=== PATIENT | female | born 1985 | race Caucasian/White ===

== ENCOUNTER 2016-09-25 00:05 | Outpatient (CLI) | payer BC, MEDICAID ==
[2016-09-25 00:40] LABS: APPEARANCE,URINE CLEAR; BILIRUBIN,URINE NEGATIVE (NEGATIVE); GLUCOSE, URINE NEGATIVE (NEGATIVE); KETONES,URINE NEGATIVE (NEGATIVE); LEUKOCYTE ESTERASE,URINE NEGATIVE (NEGATIVE); NITRITE,URINE NEGATIVE (NEGATIVE); PROTEIN,URINE NEGATIVE (NEGATIVE); URINE SPECIFIC GRAVITY 1.009; UROBILINOGEN,URINE NEGATIVE mg/dL (<2.0)
[2016-09-25] MEDS ORDERED: ONDANSETRON 4 MG TAB.RAPDIS PO ONE (01:16)
[2016-09-25 01:17] LABS: URINE BARBITURATES SCREEN NEGATIVE; URINE METHADONE SCREEN NEGATIVE; URINE PHENCYCLIDINE SCREEN NEGATIVE
[2016-09-25] MEDS ORDERED: ONDANSETRON 4 MG TAB.RAPDIS ONE (01:19)
--- NOTE | 2016-09-25 04:47 | L&D Current Admission ---
Current Admit Datetime Report Generated by CPN: 09/25/2016 04:45 ADMISSION INFORMATION Chief Complaint: Nausea (Annotations: States took bp at home and was 161/103. Hx of pre-eclampsia with other two pregnancies) (09/25/2016 00:38:Randa Álvarez RN)
--- NOTE | 2016-09-25 04:47 | L&D Flow Sheet ---
LD Flowsheet Datetime Report Generated by CPN: 09/25/2016 04:45 Datetime: 09/25/2016 01:33 Communication Additional Nursing Comments: Pt d/c'd to home with care notes given on kick counts and pre-eclampsia. To return to office later today as previously scheduled. (Randa Henri, RN) Datetime: 09/25/2016 01:25 Medications Antiemetics/Antacids: Zofran PO (mg) @ 4 mg (Randa Henri, RN) Datetime: 09/25/2016 01:18 Vital Signs NBP Sys/Evonne/Mean (mmHg): 125 (QS system process) : 80 (QS system process) : 97 (QS system process) Pulse: 85 (QS system process) LaborFlag: OB Triage (QS system process) Datetime: 09/25/2016 01:12 Communication Comments: Dr. Figueroa notified of pt's presence and c/o. Orders received. (Randa Henri, RN) Datetime: 09/25/2016 01:03 Vital Signs NBP Sys/Evonne/Mean (mmHg): 119 (QS system process) : 72 (QS system process) : 90 (QS system process) Pulse: 98 (QS system process) LaborFlag: OB Triage (QS system process) Datetime: 09/25/2016 01:00 Uterine Activity Frequency (min): 0 (Randa Henri, RN) Resting Tone (Palpate): Relaxed (Randa Henri, RN) Assessment A Monitor Mode: External US (Randa Henri, RN) FHR Baseline Rate : 133 (Randa Henri, RN) FHR Baseline Changes: No Baseline Change (Randa Henri, RN) Variability: Moderate 6-25 bpm (Randa Henri, RN) Accelerations: 15X15 (Randa Henri, RN) Decelerations: None (Randa Henri, RN) Datetime: 09/25/2016 00:48 Vital Signs NBP Sys/Evonne/Mean (mmHg): 135 (QS system process) : 88 (QS system process) : 105 (QS system process) Pulse: 93 (QS system process) LaborFlag: OB Triage (QS system process) Datetime: 09/25/2016 00:38 Pain Pain Scale: 2 (Randa Henri, RN) Pain Presence: Intermittent (Randa Henri, RN) Pain Type: Cramping (Randa Henri, RN) Pain Location: lower abdomen where leg meets the abdomen (Randa Henri, RN) Pain Goal: 1 (Randa Henri, RN) Vaginal Exam Membrane Status: Intact (Randa Henri, RN) Vaginal Bleeding: None (Randa Henri, RN) Maternal Assessment Level of Consciousness: Fully Conscious (Randa Álvarez RN) DTR's/Clonus: DTRs 1+ (Randa Álvarez RN) Headache: None at present but states has had several over past week (Randa Álvarez RN) Breath Sounds, Left: Clear and Equal (Randa Álvarez RN) Breath Sounds, Right: Clear and Equal (Randa Álvarez RN) Nausea/Vomiting: Present (Annotations: states has been nauseated all afternoon and evening. Has taken Diclegesis but has not really helped.) (Randa Álvarez RN) RUQ Epigastric Pain: Denies (Annotations: states has had it earlier today and off and on all week) (Randa Álvarez RN) LaborFlag: OB Triage (QS system process) Datetime: 09/25/2016 00:33 Vital Signs NBP Sys/Evonne/Mean (mmHg): 125 (QS system process) : 76 (QS system process) : 96 (QS system process) Pulse: 101 (QS system process) LaborFlag: OB Triage (QS system process)
--- NOTE | 2016-09-25 04:47 | Antepartum Discharge Summary ---
Antepartum DC Datetime Report Generated by CPN: 09/25/2016 04:45 DIET/ACTIVITY/RESTRICTIONS Diet: Regular (09/25/2016 01:39:Randa Henri, RN) Activity: Normal Activity (09/25/2016 01:39:Randa Henri, RN) TEACHING/INSTRUCTIONS/REFERRALS Instructions Given To: Stacy Arambula (09/25/2016 01:39:Randa Henri, RN) Instructions Understood: Patient Verbalized Understanding (09/25/2016 01:39:Randa Álvarez RN) Referrals: None (09/25/2016 01:39:Randa Álvarez RN) Educational Materials- Other: Care notes given on kick counts and pre-eclampsia (09/25/2016 01:39:Randa Álvarez RN) DISCHARGE INFORMATION Discharged AMA: No (09/25/2016 01:39:Randa Álvarez RN) Discharge Date/Time: 09/25/2016 01:33 (09/25/2016 01:39:Randa Álvarez RN) Discharged To: Home (09/25/2016 01:39:Randa Álvarez RN) Discharge Provider Name: Dr. Figueroa (09/25/2016 01:39:Randa Álvarez RN) Accompanied By: self (09/25/2016 01:39:Randa Álvarez RN) Discharge Method: Ambulatory (09/25/2016 01:39:Randa Álvarez RN) Condition: Stable (09/25/2016 01:39:Randa Álvarez RN) FOLLOW UP INFORMATION Follow Up With: [facility] (09/25/2016 01:39:Randa Álvarez RN) Follow Up On: As Scheduled (09/25/2016 01:39:Randa Álvarez RN) Follow Up Phone Number: [facility] - (09/25/2016 01:39:Randa Álvarez RN)
--- NOTE | 2016-09-25 04:47 | L&D Discharge Summary ---
OB Discharge Summary Datetime Report Generated by CPN: 09/25/2016 04:45 DISCHARGE DIAGNOSIS Diagnosis/Symptoms: Hypertension Evaluation Diagnoses/Symptoms Other: false labor;bp's wnl Treatment/Procedures Other: BP eval Gestation: 32.6 Number of Babies in Womb: 1 Parity: 2 DIET/ACTIVITY/RESTRICTIONS Diet: Regular Activity: Normal Activity TEACHING/INSTRUCTIONS/REFERRALS Instructions Given To: Stacy Arambula Instructions Understood: Patient Verbalized Understanding Referrals: None Educational Materials- Other: Care notes given on kick counts and pre-eclampsia DISCHARGE INFORMATION Discharged AMA: No Discharge Date/Time: 09/25/2016 01:33 Discharged To: Home Discharge Provider Name: Dr. Figueroa Accompanied By: self Discharge Method: Ambulatory Condition: Stable FOLLOW UP INFORMATION Follow Up With: [facility] Follow Up On: As Scheduled Follow Up Phone Number: [facility] - Comments: Pt discharged to home for bedrest over the weekend and to schedule appointment for Thursday or Thursday with [facility] for reevaluation. Pt agrees with plan of care, ambulates without difficulty, no distress noted. No complaints. GENERAL INSTR-CALL PROVIDER IF: Pressure: Pressure in your vagina or lower abdomen that may feel like the baby is pushing down Period Like Cramps: Period-like cramps or low dull backache that may come and go Cramps/Diarrhea: Abdominal cramps that may be accompanied by diarrhea Gush of Fluid/Blood: Gush of fluid or blood from your vagina (it is normal to have spotting after vaginal exam or intercourse) Vaginal Discharge: Change in the type or amount of vaginal discharge Decreased Movement: Your baby is not moving as much as usual- 4 movements in 1 hour after drinking and resting on side Temperature: Temperature greater than 100.0(F) orally
--- NOTE | 2016-09-25 04:47 | L&D Admission Assessment ---
LD ADM ASMT Datetime Report Generated by CPN: 09/25/2016 04:45 PATIENT ASSESSMENT Assessment Type: Triage (09/25/2016 00:38:Randa Álvarez RN) PAIN Pain Scale: 2 (09/25/2016 00:38:Randa Álvarez RN) Pain Presence: Intermittent (09/25/2016 00:38:Randa Álvarez RN) Pain Type: Cramping (09/25/2016 00:38:Randa Álvarez RN) Pain Location: lower abdomen where leg meets the abdomen (09/25/2016 00:38:Randa Henri, RN) Pain Goal: 1 (09/25/2016 00:38:Randa Álvarez, RN) Pain Related to Contraction: No (09/25/2016 00:38:Randa Henri, RN) CONTRACTIONS Frequency (min): 0 (09/25/2016 01:00:Randa Henri, RN) Resting Tone [place]: Relaxed (09/25/2016 01:00:Randa Henri, RN) VAGINAL EXAM Membranes Status: Intact (09/25/2016 00:38:Randa Henri, RN) NEURO Level of Consciousness: Fully Conscious (09/25/2016 00:38:Randa Álvarez RN) DTR's/Clonus: DTRs 1+ (09/25/2016 00:38:Randa Álvarez RN) Headache: None at present but states has had several over past week (09/25/2016 00:38:Randa Álvarez RN) Dizziness: No (Annotations: Does not describe it as dizzy but "lightheaded") (09/25/2016 00:38:Randa Álvarez RN) Blurred Vision: No (09/25/2016 00:38:Randa Álvarez RN) Extremity Numbness/Tingling : None (09/25/2016 00:38:Randa Álvarez RN) Extremity Movement: Full Range of Motion (09/25/2016 00:38:Randa Álvarez RN) CARDIOVASCULAR Heart Rhythm: Regular (09/25/2016 00:38:Randa Álvarez RN) Nailbeds: [place] (09/25/2016 00:38:Randa Álvarez RN) Capillary Refill: Less than 3 Seconds (09/25/2016 00:38:Randa Álvarez RN) Lower Extremities Edema: None (09/25/2016 00:38:Randa Álvarez RN) Lower Extremities Edema Degree: None (09/25/2016 00:38:Randa Álvarez RN) Upper Extremities Edema: None (09/25/2016 00:38:Randa Álvarez RN) Upper Extremities Edema Degree: None (09/25/2016 00:38:Randa Álvarez RN) Facial Edema: None (09/25/2016 00:38:Randa Álvarez RN) Neeraj's Sign Left Leg: Negative (09/25/2016 00:38:Randa Álvarez RN) Neeraj's Sign Right Leg: Negative (09/25/2016 00:38:Randa Álvarez RN) DVT RISK ASSESSMENT DVT Risk Age: Age less than 41 years (09/25/2016 00:38:Randa Álvarez RN) DVT Risk BMI: BMI<31 (09/25/2016 00:38:Randa Álvarez RN) DVT Risk Surgery: None Applicable (09/25/2016 00:38:Randa Álvarez RN) DVT Risk Other: Women Only- or (<1 month) (09/25/2016 00:38:Randa Álvarez RN) DVT Risk Total: 1 (09/25/2016 00:38:QS system process) DVT Risk Text: Low Risk (<10%) No specific measures, early ambulation (09/25/2016 00:38:QS system process) RESPIRATORY Respiratory Effort: Unlabored; Regular Rhythm (09/25/2016 00:38:Randa Álvarez RN) Breath Sounds, Left: Clear and Equal (09/25/2016 00:38:Randa Álvarez RN) Breath Sounds, Right: Clear and Equal (09/25/2016 00:38:Randa Álvarez RN) Cough Productivity: None (09/25/2016 00:38:Randa Álvarez RN) GASTROINTESTINAL Nausea/Vomiting: Present (Annotations: states has been nauseated all afternoon and evening. Has taken Diclegesis but has not really helped.) (09/25/2016 00:38:Randa Álvarez RN) Bowel Sounds: Normoactive (09/25/2016 00:38:Randa Álvarez RN) RUQ Epigastric Pain: Denies (Annotations: states has had it earlier today and off and on all week) (09/25/2016 00:38:Randa Álvarez RN) Bowel Patterns: Constipation (09/25/2016 00:38:Randa Álvarez RN) Hemorrhoids: Present (09/25/2016 00:38:Randa Álvarez RN) Diet Type: Regular diet (09/25/2016 00:38:Randa Álvarez RN) Last Meal: 09/24/2016 17:00 (09/25/2016 00:38:Randa Álvarez RN) GENITOURINARY Bladder: Nondistended (09/25/2016 00:38:Randa Álvarez RN) Vaginal Bleeding: None (09/25/2016 00:38:Randa Álvarez RN) INTEGUMENTARY Skin Color: Normal for Race (09/25/2016 00:38:Randa Álvarez RN) Skin Temperature: Warm (09/25/2016 00:38:Randa Álvarez RN) Skin Moisture: Dry (09/25/2016 00:38:Randa Álvarez RN) Surgical Scars: lap scars (09/25/2016 00:38:Randa Álvarez RN) Body Piercings/Tattoos: ears, nose and R eyebrow; tattos X7 (09/25/2016 00:38:Randa Álvarez RN) [facility] SKIN ASSESSMENT Oscar Scale Sensory Perception: No Impairment- Responds to verbal commands. Has no sensory deficit which would limit ability to feel or voice pain or discomfort (09/25/2016 00:38:Randa Álvarez RN) Oscar Scale Moisture: Rarely Moist- Skin is usually dry. Linen only requires changing at routine intervals (09/25/2016 00:38:Randa Álvarez RN) Oscar Scale Activity: Walks Frequently- Walks outside the room at least twice a day and inside room at least every 2 hours during the day. (09/25/2016 00:38:Randa Álvarez RN) Oscar Scale Mobility: No Limitations- Makes major and frequent changes in position without assistance (09/25/2016 00:38:Randa Álvarez RN) Oscar Scale Nutrition: Excellent- Eats most of every meal. Never refuses a meal. Usually eats a total of 4 or more servings of meat and dairy products. Occasionally eats between meals. Does not require supplementation (09/25/2016 00:38:Randa Álvarez RN) Oscar Scale Friction and Shear: No Apparent Problem- Moves in bed and in chair independently and has sufficient muscle strength to lift up completely during move. Maintains good position in bed or chair at all times (09/25/2016 00:38:Randa Álvarez RN) Oscar Scale Total: 23 (09/25/2016 00:38:QS system process) Oscar Scale Risk: No Risk of Pressure Ulcer Noted at this Time (09/25/2016 00:38:QS system process) SUPPORT Emotional State: Calm/Relaxed (09/25/2016 00:38:Randa Álvarez RN) SAFETY Call [place] Within Reach: Yes (09/25/2016 00:38:Randa Álvarez RN) Side Rails Up: Yes (09/25/2016 00:38:Randa Álvarez RN) Bed Wheels Locked: Yes (09/25/2016 00:38:Randa Álavrez RN) Arm Bands Present: Yes (09/25/2016 00:38:Randa Álvarez RN) Isolation: [place] (09/25/2016 00:38:Randa Álvarez RN) FALL SCREEN Fall Risk History of Falling: (0) No (09/25/2016 00:38:Randa Álvarez RN) Fall Risk Secondary Diagnosis: (0) No (09/25/2016 00:38:Randa Álvarez RN) Fall Risk Ambulatory Aid: (0) None/Bedrest/Wheelchair/Nurse Assist (09/25/2016 00:38:Randa Álvarez RN) Fall Risk IV Therapy: (0) No (09/25/2016 00:38:Randa Álvarez RN) Fall Risk Gait: (0) Normal/Bedrest/Immobile (09/25/2016 00:38:Randa Álvarez RN) Fall Risk Mental Status: (0) Oriented to Own Ability (09/25/2016 00:38:Randa Álvarez RN) Fall Risk Score: 0 (09/25/2016 00:38:QS system process) Fall Risk Score Definition: No Risk: No action required (09/25/2016 00:38:QS system process) RECENT TRAVEL/INFECTIOUS DISEASE Recent Exp Communicable Disease: No (09/25/2016 00:38:Randa Álvarez RN) Cough or Fever: No (09/25/2016 00:38:Randa Álvarez RN) Foreign Travel Past 10 Days: No (09/25/2016 00:38:Randa Álvarez RN) Open Wounds or Sores: No (09/25/2016 00:38:Randa Álvarez RN) Prior Antibiotic Resistance Tx: No (09/25/2016 00:38:Randa Álvarez RN) Cultures Obtained: Not Applicable (09/25/2016 00:38:Randa Álvarez RN) Isolation Initiated: No (09/25/2016 00:38:Randa Álvarez RN) Pt/Family Education: Not Applicable (09/25/2016 00:38:Randa Álvarez RN) BABY A FHR Baseline Rate (bpm) Baby A: 133 (09/25/2016 01:00:Randa Álvarez RN) Variability Baby A: Moderate 6-25 bpm (09/25/2016 01:00:Randa Álvarez RN) Accelerations Baby A: 15X15 (09/25/2016 01:00:Randa Álvarez RN) Decelerations Baby A: None (09/25/2016 01:00:Randa Álvarez RN)
--- NOTE | 2016-09-25 04:47 | L&D General Admission ---
General Admit Datetime Report Generated by CPN: 09/25/2016 04:45 INFORMATION Para: 2 (09/25/2016 01:39:Randa Henri, RN) Baby, Number in Womb: 1 (09/25/2016 01:39:Randa Henri, RN) CARE Height (in): 67 (09/25/2016 01:16:QS system process) Height (in): 67 (09/04/2016 11:50:QS system process) ALLERGIES Medication Allergies: No Known Allergies (09/25/2016) (09/25/2016 00:21:QS system process) Medication Allergies: No Known Allergies (09/04/2016) (09/04/2016 11:50:QS system process) DEMOGRAPHICS Address: [address] [place] [id number] (09/04/2016 11:39:QS system process) Next of Kin Name: BEVERLY ANAYA (09/04/2016 11:39:QS system process) Next of Kin (09/04/2016 11:39:QS system process) Confucianism: None (09/04/2016 11:39:QS system process) LABS Hemoglobin: 10.6 L (09/04/2016 13:07:QS system process) Hemoglobin: 11.6 L (08/02/2016 21:50:QS system process) Hematocrit: 30.8 L (09/04/2016 13:07:QS system process) Hematocrit: 34.3 L (08/02/2016 21:50:QS system process) MCV: 87 (09/04/2016 13:07:QS system process) MCV: 89 (08/02/2016 21:50:QS system process)
== END 2016-09-25 01:33 | disposition home or self-care (01) ==
LOC: LC 00:05
PROVIDERS: ATTEND Obstetrics & Gynecology
PROC: 4A1HXCZ Monitoring of Products of Conception, Cardiac Rate, External Approach (ICD-10-PCS; principal; 2016-09-25)
DX: O47.03 False labor before 37 completed weeks of gestation, third trimester (principal); Z3A.32 32 weeks gestation of pregnancy
CPT/HCPCS: 59025; 81001; G0479; S0119; 80307

== ENCOUNTER 2016-10-21 13:25 | Outpatient (CLI) | payer BC, MEDICAID ==
--- NOTE | 2016-10-21 13:30 | Non Stress Test Report ---
Non Stress Test Datetime Report Generated by CPN: 10/21/2016 13:30 DEMOGRAPHIC Test Number: 1 EGA NST: 33.0 INDICATION Indication for Study: Ordered by Provider VITAL SIGNS Temperature - NST: 98.5 Pulse - NST: 101 RESP - NST: 20 NBPSYS NST: 125 NBPDIA NST: 76 URINE RESULTS Urine Protein, NST: Negative Urine Ketones - NST: Negative Urine Glucose - NST: Negative Urine Blood - NST: Negative MONITORING Monitor Explained: Monitor Explained; Test Explained; Patient Verbalized Understanding; Other Time on Monitor: 09/25/2016 00:29 Time off Monitor: 09/25/2016 01:25 NST Duration: 56 NST INTERVENTIONS NST Interventions: PO Hydration Physician Notified NST: Dr. Figueroa BABY A: [id number] BABY A Movement : Present Contraction Frequency : 0 FHR Baseline : 130 Accelerations : 15X15 Decelerations : None Variability : Moderate 6-25bpm NST Review: Meets Criteria for Reactive NST NST Review and Verified By : Noe Cabrales, RN NST Results: Reactive NST REPORT Report Trigger: Send Report
[2016-10-21 14:01] LABS: APPEARANCE,URINE CLEAR; BILIRUBIN,URINE NEGATIVE (NEGATIVE); GLUCOSE, URINE NEGATIVE (NEGATIVE); KETONES,URINE NEGATIVE (NEGATIVE); LEUKOCYTE ESTERASE,URINE TRACE (NEGATIVE); NITRITE,URINE NEGATIVE (NEGATIVE); PROTEIN,URINE NEGATIVE (NEGATIVE); URINE SPECIFIC GRAVITY 1.009; UROBILINOGEN,URINE NEGATIVE mg/dL (<2.0)
--- NOTE | 2016-10-21 14:01 | L&D Flow Sheet ---
LD Flowsheet Datetime Report Generated by CPN: 10/21/2016 14:00 Datetime: 10/21/2016 13:53 Vaginal Exam Vaginal Bleeding: None (Yanci Hall, RN) Maternal Assessment Level of Consciousness: Fully Conscious (Yanci Hall, RN) DTR's/Clonus: DTRs 2+; No Clonus (Yanci Hall, RN) Headache: Denies (Yanci Hall, RN) Breath Sounds, Left: Clear and Equal (Yanci Hall, RN) Breath Sounds, Right: Clear and Equal (Yanci Hall, RN) Nausea/Vomiting: Hx of Nausea/Vomiting (Yanci Hall, RN) RUQ Epigastric Pain: Denies (Yanci Hall, RN) Teaching Instructional Method: Verbal; Patient Instructed; Verbalized Understanding (Yanci Hall RN) Plan of Care: Plan of Care Discussed (Yanci Hall RN) Unit Routine: [place] to Room; Call [place]; Bed; Handwashing; Monitoring; Bathroom Privileges (Yanci Hall RN) Datetime: 10/21/2016 13:52 Patient Care Procedures: Labs Drawn (Yanci Hall, RN) Datetime: 10/21/2016 13:49 Vital Signs NBP Sys/Evonne/Mean (mmHg): 125 (QS system process) : 83 (QS system process) : 98 (QS system process) Pulse: 97 (QS system process) Respirations: 16 (Yanci Hall RN) Temperature (F): 98.2 (Yanci Hall RN) Temperature (C): 36.8 (QS system process) Uterine Activity Monitor Interventions for UA: [place] Adjusted (Yanci Hall, RN) Pain Pain Scale: 2 (Yanci Hall, RN) Pain Presence: Intermittent (Yanci Hall, RN) Pain Type: Contraction (Yanci Hall, RN) Pain Location: Back (Yanci Hall, RN) Pain Relief Measures: Comfort Measures (Yanci Hall, RN) Communication LaborFlag: OB Triage (QS system process) Datetime: 10/21/2016 13:41 Patient Position/Activity: Left Lateral (Yanci Hall RN) I/O Interventions: Clear Liquids Given (Yanci Hall RN)
[2016-10-21 14:24] LABS: URINE METHADONE SCREEN NEGATIVE; URINE OPIATES LOW NEGATIVE; URINE PHENCYCLIDINE SCREEN NEGATIVE
[2016-10-21 14:39] LABS: ABSOLUTE EOSINOPHILS # (AUTO) 0.3 10^3/uL (0.0-0.6); ABSOLUTE LYMPHOCYTES (AUTO) 1.2 10^3/uL (0.5-4.7); ABSOLUTE MONOCYTES (AUTO) 0.4 10^3/uL (0.1-1.4); BASOPHILS % (AUTO) 0.4 % (0-2); EOSINOPHILS % (AUTO) 3.2 % (0-6); HEMOGLOBIN 10.1 g/dL (12.0-15.5); HGB HCT DIFFERENCE 0.3; LYMPHOCYTES % (AUTO) 15.2 % (13-45); MEAN CORPUSCULAR HEMOGLOBIN 28.2 pg (27.0-33.4); MEAN CORPUSCULAR HGB CONC 33.7 g/dL (32.0-36.0); MEAN CORPUSCULAR VOLUME 84 fl (80-97); MONOCYTES % (AUTO) 4.7 % (3-13); RED BLOOD COUNT 3.58 10^6/uL (3.72-5.28); RED CELL DISTRIBUTION WIDTH 14.2 % (11.5-14.0); SEGMENTED NEUTROPHILS % (AUTO) 76.5 % (42-78); WHITE BLOOD COUNT 7.8 10^3/uL (4.0-10.5)
[2016-10-21 14:43] LABS: URINE BARBITURATES SCREEN NEGATIVE
[2016-10-21 14:59] LABS: ALANINE AMINOTRANSFERASE 61 U/L (9-52); ALBUMIN 3.2 g/dL (3.5-5.0); ALKALINE PHOSPHATASE 139 U/L (38-126); ANION GAP 9 (5-19); ASPARTATE AMINO TRANSFERASE 34 U/L (14-36); BILIRUBIN,TOTAL 0.7 mg/dL (0.2-1.3); BLOOD UREA NITROGEN 7 mg/dL (7-20); CALCIUM 8.6 mg/dL (8.4-10.2); CARBON DIOXIDE 25 mmol/L (22-30); CHLORIDE 106 mmol/L (98-107); CREATININE RESULT 0.63 mg/dL (0.52-1.25); GLUCOSE 81 mg/dL (75-110); LDH 499 U/L (313-618); SODIUM 139.5 mmol/L (137-145); TOTAL PROTEIN 6.2 g/dL (6.3-8.2); URIC ACID 3.7 mg/dL (2.5-6.2)
--- NOTE | 2016-10-21 15:13 | Non Stress Test Report ---
Non Stress Test Datetime Report Generated by CPN: 10/21/2016 15:13 DEMOGRAPHIC EGA NST: 36.5 INDICATION Indication for Study: Other Indication for Study (NST) Other: LC MONITORING Monitor Explained: Monitor Explained; Test Explained; Patient Verbalized Understanding Time on Monitor: 10/21/2016 13:48 Time off Monitor: 10/21/2016 15:03 NST Duration: 75 NST INTERVENTIONS NST Interventions: PO Hydration; Reposition Patient Physician Notified NST: A. Emmel CNM BABY A Movement : Present Contraction Frequency : irreg FHR Baseline : 135 Accelerations : 15X15 Decelerations : None Variability : Moderate 6-25bpm NST Review: Meets Criteria for Reactive NST NST Review and Verified By : Jessy José RN NST Results: Reactive NST REPORT Report Trigger: Send Report
== END 2016-10-21 15:10 | disposition home or self-care (01) ==
LOC: LC 13:25
PROVIDERS: ATTEND Obstetrics & Gynecology
PROC: 4A1HXCZ Monitoring of Products of Conception, Cardiac Rate, External Approach (ICD-10-PCS; principal; 2016-10-21)
DX: Z36 Encounter for antenatal screening of mother (principal); Z13.6 Encounter for screening for cardiovascular disorders; Z3A.33 33 weeks gestation of pregnancy
CPT/HCPCS: 36415; 59025; 80053; 80307; 81001; 83615; 84550; 85025

== ENCOUNTER 2016-11-05 06:46 | Inpatient (IN) | payer BC, MEDICAID ==
[2016-11-05] MEDS ORDERED: RINGERS SOLUTION,LACTATED 1,000 ML IV PRN (07:08)
[2016-11-05] MEDS ORDERED: OXYTOCIN/NORMAL SALINE 1,000 ML IV PRN ×2 (07:08→17:45)
[2016-11-05] MEDS ORDERED: RINGERS SOLUTION,LACTATED 300 ML IV ONE (07:08)
[2016-11-05 07:44] LABS: ABSOLUTE LYMPHOCYTES (AUTO) 1.6 10^3/uL (0.5-4.7); ABSOLUTE MONOCYTES (AUTO) 0.3 10^3/uL (0.1-1.4); ABSOLUTE NEUT (AUTO) 4.2 10^3/uL (1.7-8.2); BASOPHILS % (AUTO) 0.4 % (0-2); EOSINOPHILS % (AUTO) 0.3 % (0-6); HEMATOCRIT 29.4 % (36.0-47.0); HEMOGLOBIN 9.8 g/dL (12.0-15.5); MEAN CORPUSCULAR HEMOGLOBIN 27.5 pg (27.0-33.4); MEAN CORPUSCULAR HGB CONC 33.5 g/dL (32.0-36.0); MEAN CORPUSCULAR VOLUME 82 fl (80-97); MONOCYTES % (AUTO) 4.4 % (3-13); RED BLOOD COUNT 3.58 10^6/uL (3.72-5.28); RED CELL DISTRIBUTION WIDTH 14.4 % (11.5-14.0); SEGMENTED NEUTROPHILS % (AUTO) 68.9 % (42-78); WHITE BLOOD COUNT 6.1 10^3/uL (4.0-10.5)
[2016-11-05 08:00] LABS: ALANINE AMINOTRANSFERASE 64 U/L (9-52); ALKALINE PHOSPHATASE 158 U/L (38-126); ANION GAP 9 (5-19); ASPARTATE AMINO TRANSFERASE 41 U/L (14-36); BILIRUBIN,TOTAL 0.7 mg/dL (0.2-1.3); BLOOD UREA NITROGEN 7 mg/dL (7-20); CALCIUM 8.3 mg/dL (8.4-10.2); CARBON DIOXIDE 23 mmol/L (22-30); CHLORIDE 107 mmol/L (98-107); CREATININE RESULT 0.68 mg/dL (0.52-1.25); GLUCOSE 109 mg/dL (75-110); LDH 548 U/L (313-618); POTASSIUM 3.2 mmol/L (3.6-5.0); SODIUM 139.1 mmol/L (137-145); TOTAL PROTEIN 5.7 g/dL (6.3-8.2); URIC ACID 4.7 mg/dL (2.5-6.2)
--- NOTE | 2016-11-05 08:01 | L&D Flow Sheet ---
LD Flowsheet Datetime Report Generated by CPN: 11/05/2016 08:00 Datetime: 11/05/2016 07:58 Vital Signs NBP Sys/Evonne/Mean (mmHg): 127 (QS system process) : 71 (QS system process) : 93 (QS system process) Pulse: 85 (QS system process) Communication LaborFlag: OB Triage (QS system process) Datetime: 11/05/2016 07:49 Pain Pain Scale: 2 (Yanci Hall RN) Pain Presence: Intermittent (Yanci Hall, RN) Pain Type: Pressure; Ache (Yanci Hall, RN) Pain Location: Abdomen; Perineum (Yanci Hall, RN) Vaginal Exam Vaginal Bleeding: None (Yanci Hall RN) Maternal Assessment Level of Consciousness: Fully Conscious (Yanci Hall RN) DTR's/Clonus: DTRs 2+; No Clonus (Yanci Hall RN) Headache: Generalized (Yanci Hall RN) Breath Sounds, Left: Clear and Equal (Yanci Hall RN) Breath Sounds, Right: Clear and Equal (Yanci Hall, RN) Nausea/Vomiting: Denies (Yanci Hall RN) RUQ Epigastric Pain: Denies (Yanci Hall RN) Teaching Instructional Method: Verbal; Patient Instructed; Family/Support Person Instructed; Verbalized Understanding (Yanci Hall RN) Plan of Care: Plan of Care Discussed; Vaginal Delivery; C/S Delivery; Induction (Yanci Hall RN) Unit Routine: [place] to Room; Call [place]; Bed; Waiting Areas; Photography; Unit Personnel; Handwashing; Monitoring; IV Pumps; Bathroom Privileges (Yanci Hall, RN) Communication LaborFlag: OB Triage (QS system process) Datetime: 11/05/2016 07:30 Patient Care Procedures: Labs Drawn (Yanci Hall, RN) Datetime: 11/05/2016 07:28 Vital Signs NBP Sys/Evonne/Mean (mmHg): 118 (QS system process) : 74 (QS system process) : 89 (QS system process) Pulse: 88 (QS system process) Communication LaborFlag: OB Triage (QS system process) Datetime: 11/05/2016 07:27 Patient Care Procedures: Consents Signed (Yanci Hall, RN)
[2016-11-05 08:28] LABS: APPEARANCE,URINE CLOUDY; BILIRUBIN,URINE NEGATIVE (NEGATIVE); GLUCOSE, URINE NEGATIVE (NEGATIVE); KETONES,URINE NEGATIVE (NEGATIVE); LEUKOCYTE ESTERASE,URINE MODERATE (NEGATIVE); NITRITE,URINE NEGATIVE (NEGATIVE); PROTEIN,URINE 30 mg/dL (NEGATIVE); URINE SPECIFIC GRAVITY 1.015; UROBILINOGEN,URINE NEGATIVE mg/dL (<2.0)
[2016-11-05] MEDS ORDERED: OXYTOCIN/NORMAL SALINE 0 UNIT/0 ML RTUINJ ONE (08:37)
[2016-11-05 08:44] LABS: URINE BARBITURATES SCREEN NEGATIVE; URINE METHADONE SCREEN NEGATIVE; URINE OPIATES LOW NEGATIVE; URINE PHENCYCLIDINE SCREEN NEGATIVE
--- NOTE | 2016-11-05 10:00 | L&D Flow Sheet ---
LD Flowsheet Datetime Report Generated by CPN: 11/05/2016 10:00 Datetime: 11/05/2016 09:55 Monitor Interventions for UA: [place] Adjusted (Yanci Hall, RN) Monitor Interventions for FHR: Ultrasound Adjusted (Yanci Hall, RN) Datetime: 11/05/2016 09:54 Patient Position/Activity: Birthing Ball (Yanci Hall, RN) Datetime: 11/05/2016 09:45 Monitor Mode: External; Palpation (Yanci Hall RN) Frequency (min): 1-3 (Yanci Hall RN) Quality: Mild (Yanci Hall, RN) Duration (sec): 30-60 (Yanci Hall RN) Resting Tone (Palpate): Relaxed (Yanci Hall RN) Monitor Mode: External US (Yanci Hall RN) FHR Baseline Rate : 135 (Yanci Hall, RN) Variability: Moderate 6-25 bpm (Yanci Hall, RN) Accelerations: 15X15 (Yanci Hall, RN) Decelerations: None (Yanci Hall, RN) Pitocin (milliunit): Pitocin Increased to (milliunits) @ 6 (Yanci Hall, RN) I/O Interventions: Up to BR (Yanci Hall RN) Datetime: 11/05/2016 09:30 Monitor Mode: External (Yanci Hall RN) Frequency (min): irregular (Yanci Hall, RN) Quality: Mild (Yanci Hall, RN) Duration (sec): 40-80 (Yanic Hall, RN) Duration Criteria: Less than Two 120 Second Contractions (Yanci Hall RN) Pattern: Normal: <= 5 Contractions in 10 Minutes (Yanci Hall RN) Resting Tone (Palpate): Relaxed (Yanci Hall RN) Monitor Mode: External US (Yanci Hall RN) FHR Baseline Rate : 135 (Yanci Hall RN) FHR Baseline Changes: No Baseline Change (Yanci Hall RN) Variability: Moderate 6-25 bpm (Yanci Hall RN) Accelerations: 15X15 (Yanci Hall RN) Decelerations: None (Yanci Hall RN) Pitocin (milliunit): Pitocin Increased to (milliunits) @ 4 (Yanci Hall RN) Datetime: 11/05/2016 09:28 NBP Sys/Evonne/Mean (mmHg): 123 (QS system process) : 78 (QS system process) : 96 (QS system process) Pulse: 69 (QS system process) LaborFlag: Labor (QS system process) Datetime: 11/05/2016 09:15 Monitor Mode: External (Yanci Hall RN) Frequency (min): x2 (Yanci Hall RN) Quality: Mild (Yanci Hall, RN) Duration (sec): 50-80 (Yanci Hall, RN) Duration Criteria: Less than Two 120 Second Contractions (Yanci Hall, RN) Pattern: Normal: <= 5 Contractions in 10 Minutes (Yanci Hall, RN) Resting Tone (Palpate): Relaxed (Yanci Hall, RN) Monitor Mode: External US (Yanci Hall, RN) FHR Baseline Rate : 135 (Yanci Hall, RN) Variability: Moderate 6-25 bpm (Yanci Hall, RN) Accelerations: 15X15 (Yanci Hall, RN) Decelerations: None (Yanci Hall, RN) Pitocin (milliunit): Pitocin Remains (milliunits) @ 2 (Yanci Hall, RN) Datetime: 11/05/2016 09:07 Pitocin (milliunit): Pitocin Started (milliunits) @ 2; Pitocin 20 Units in 1000ml NS (Yanci Hall, RN) Datetime: 11/05/2016 08:56 Patient Position/Activity: Left Lateral (Yanci Hall, RN) Datetime: 11/05/2016 08:47 I/O Interventions: Up to BR (Yanci Hall, RN) Datetime: 11/05/2016 08:39 Communication Comments: A. Emmel CNM at bedside discussing POC with pt (Yanci Hall, RN) Datetime: 11/05/2016 08:37 I/O Interventions: Up to BR (Yanci Hall, RN) Datetime: 11/05/2016 08:29 Communication Comments: Orders to start Pitocin and increase every 30 minutes per protocol per Dr. Mcfarland (Yanci Hall, RN) Datetime: 11/05/2016 08:28 Exam by: Dr Mcfarland (Yanci Rafael, RN) Cervix, Consistency: Soft (Yanci Rafael, RN) Vaginal Exam Comments: closed (Yanci Hall, RN) Datetime: 11/05/2016 08:25 Communication Comments: Dr. Mcfarland doing bedside ultrasound. Baby is vertex (Yanci Rafael, RN) Datetime: 11/05/2016 08:22 Monitor Mode: External; Palpation (Yanci Rafael, RN) Frequency (min): none (Yanci Hall, RN) Resting Tone (Palpate): Relaxed (Yanci Hall, RN) Monitor Mode: External US (Yanci Rafael, RN) FHR Baseline Rate : 145 (Yanci Rafael, RN) Variability: Moderate 6-25 bpm (Yanci Hall, RN) Accelerations: 15X15 (Yanci Hall, RN) Decelerations: None (Yanci Hall, RN) Datetime: 11/05/2016 08:21 Communication Comments: Dr. Mcfarland at bedside (Yanci Hall, RN) Datetime: 11/05/2016 08:05 Patient Care Comments: IV fluids decreased to 125ml/hr (Yanci Hall, RN) Datetime: 11/05/2016 08:01 Patient Position/Activity: Right Lateral (Yanci Hall, RN) Datetime: 11/05/2016 08:00 Monitor Mode: External; Palpation (Yanci Hall RN) Frequency (min): none (Yanci Hall RN) Resting Tone (Palpate): Relaxed (Yanci Hall RN) Monitor Mode: External US (Yanci Hall RN) FHR Baseline Rate : 135 (Yanci Hall RN) Variability: Moderate 6-25 bpm (Yanci Hall RN) Accelerations: 15X15 (Yanci Hall RN) Decelerations: None (Yanci Hall RN)
--- NOTE | 2016-11-05 12:00 | L&D Flow Sheet ---
LD Flowsheet Datetime Report Generated by CPN: 11/05/2016 12:00 Datetime: 11/05/2016 11:49 Respirations: 16 (Yanci Hall, RN) Temperature (F): 97.5 (Yanci Hall, RN) Temperature (C): 36.4 (QS system process) LaborFlag: Labor (QS system process) Datetime: 11/05/2016 11:47 NBP Sys/Evonne/Mean (mmHg): 124 (QS system process) : 81 (QS system process) : 99 (QS system process) Pulse: 75 (QS system process) Monitor Interventions for UA: [place] Adjusted (Yanci Hall RN) Monitor Interventions for FHR: Ultrasound Adjusted (Yanci Hall RN) LaborFlag: Labor (QS system process) Datetime: 11/05/2016 11:45 Monitor Mode: External (Yanci Hall RN) Frequency (min): 1-2 (Yanci Hall RN) Quality: Mild/Moderate (Yanci Hall RN) Duration (sec): 50-70 (Yanci Hall RN) Resting Tone (Palpate): Relaxed (Yanci Hall RN) Monitor Mode: External US (Yanci Hall RN) FHR Baseline Rate : 135 (Yanci Hall RN) Variability: Moderate 6-25 bpm (Yanci Hall RN) Accelerations: 15X15 (Yanci Hall RN) Decelerations: None (Yanci Hall RN) Pitocin (milliunit): Pitocin Remains (milliunits) @ 18 (Yanci Hall RN) Datetime: 11/05/2016 11:41 I/O Interventions: Up to BR (Yanci Hall RN) Datetime: 11/05/2016 11:31 NBP Sys/Evonne/Mean (mmHg): 123 (QS system process) : 83 (QS system process) : 99 (QS system process) Pulse: 76 (QS system process) LaborFlag: Labor (QS system process) Datetime: 11/05/2016 11:30 Monitor Mode: External; Palpation (Yanci Hall RN) Frequency (min): 1.5-2 (Yanci Hall RN) Quality: Mild/Moderate (Yanci Hall RN) Duration (sec): 50-70 (Yanci Hall RN) Duration Criteria: Less than Two 120 Second Contractions (Yanci Hall RN) Pattern: Normal: <= 5 Contractions in 10 Minutes (Yanci Hall RN) Resting Tone (Palpate): Relaxed (Yanci Hall RN) Monitor Mode: External US (Yanci Hall RN) FHR Baseline Rate : 140 (Yanci Hall RN) Variability: Moderate 6-25 bpm (Yanci Hall RN) Accelerations: 15X15 (Yanci Hall RN) Decelerations: None (Yanci Hall RN) Pitocin (milliunit): Pitocin Increased to (milliunits) @ 18 (Yanci Hall RN) Datetime: 11/05/2016 11:16 NBP Sys/Evonne/Mean (mmHg): 135 (QS system process) : 84 (QS system process) : 103 (QS system process) Pulse: 79 (QS system process) Monitor Interventions for FHR: Ultrasound Adjusted (Yanci Hall RN) LaborFlag: Labor (QS system process) Datetime: 11/05/2016 11:15 Monitor Mode: External (Yanci Hall RN) Frequency (min): 1-2 (Yanci Hall RN) Quality: Mild/Moderate (Yanci Hall RN) Duration (sec): 40-60 (Yanci Hall RN) Resting Tone (Palpate): Relaxed (Yanci Hall RN) Monitor Mode: External US (Yanci Hall RN) FHR Baseline Rate : 135 (Yanci Hall RN) Variability: Moderate 6-25 bpm (Yanci Hall RN) Accelerations: 15X15 (Yanci Hall RN) Decelerations: None (Yanci Hall RN) Pain Scale: 3 (Yanci Hall RN) Pain Presence: Intermittent (Yanci Hall RN) Pain Type: Contraction (Yanci Hall RN) Pain Location: Abdomen (Yanci Hall RN) Pain Relief Measures: Comfort Measures (Yanci Hall RN) Pain Coping: Talking Through Contractions (Yanci Hall RN) Pitocin (milliunit): Pitocin Increased to (milliunits) @ 16 (Yanci Hall RN) LaborFlag: Labor (QS system process) Datetime: 11/05/2016 11:03 Monitor Interventions for FHR: Ultrasound Adjusted (Yanci Hall RN) Datetime: 11/05/2016 11:00 NBP Sys/Evonne/Mean (mmHg): 129 (QS system process) : 84 (QS system process) : 101 (QS system process) Pulse: 71 (QS system process) Monitor Mode: External (Yanci Hall RN) Frequency (min): 1-3 (Yanci Hall RN) Quality: Mild/Moderate (Yanci Hall, RN) Duration (sec): 40-60 (Yanci Hall RN) Resting Tone (Palpate): Relaxed (Yanci Hall RN) Monitor Mode: External US (Yanci Hall RN) FHR Baseline Rate : 135 (Yanci Hall RN) Variability: Moderate 6-25 bpm (Yanci Hall RN) Decelerations: None (Yanci Hall RN) Pitocin (milliunit): Pitocin Increased to (milliunits) @ 14 (Yanci Hall RN) LaborFlag: Labor (QS system process) Datetime: 11/05/2016 10:59 Monitor Interventions for FHR: Ultrasound Adjusted (Yanci Hall, RN) Datetime: 11/05/2016 10:56 Monitor Interventions for UA: [place] Adjusted (Yanci Hall, RN) Datetime: 11/05/2016 10:52 Comfort Measures: Rocking Chair (Yanci Hall, RN) Datetime: 11/05/2016 10:45 Monitor Mode: External (Yanci Hall RN) Frequency (min): 2-3 (Yanci Hall RN) Quality: Mild/Moderate (Yanci Hall RN) Duration (sec): 40-50 (Yanci Hall RN) Resting Tone (Palpate): Relaxed (Yanci Hall RN) Monitor Mode: External US (Yanci Hall RN) FHR Baseline Rate : 135 (Yanci Hall RN) Variability: Moderate 6-25 bpm (Yanci Hall, RN) Accelerations: 15X15 (Yanci Hall, RN) Decelerations: None (Yanci Hall RN) Pitocin (milliunit): Pitocin Increased to (milliunits) @ 12 (Yanci Hall RN) Datetime: 11/05/2016 10:44 I/O Interventions: Up to BR (Yanci Hall RN) Datetime: 11/05/2016 10:31 NBP Sys/Evonne/Mean (mmHg): 132 (QS system process) : 98 (QS system process) : 110 (QS system process) Pulse: 75 (QS system process) LaborFlag: Labor (QS system process) Datetime: 11/05/2016 10:30 Monitor Mode: External (Yanci Hall RN) Frequency (min): 2-4 (Yanci Hall RN) Quality: Mild (Yanci Hall RN) Duration (sec): 50-70 (Yanci Hall RN) Resting Tone (Palpate): Relaxed (Yanci Hall RN) Monitor Mode: External US (Yanci Hall RN) FHR Baseline Rate : 135 (Yanci Hall RN) Variability: Moderate 6-25 bpm (Yanci Hall RN) Accelerations: 10X10 (Yanci Hall RN) Decelerations: None (Yanci Hall RN) Pitocin (milliunit): Pitocin Increased to (milliunits) @ 10 (Yanci Hall RN) Datetime: 11/05/2016 10:16 NBP Sys/Evonne/Mean (mmHg): 136 (QS system process) : 93 (QS system process) : 109 (QS system process) Pulse: 88 (QS system process) LaborFlag: Labor (QS system process) Datetime: 11/05/2016 10:15 Monitor Mode: External (Yanci Hall RN) Frequency (min): 2-3 (Yanci Hall RN) Quality: Mild (Yanci Hall RN) Duration (sec): 50-70 (Yanci Hall RN) Resting Tone (Palpate): Relaxed (Yanci Hall RN) Monitor Mode: External US (Yanci Hall RN) FHR Baseline Rate : 135 (Yanci Hall RN) Variability: Minimal - Undetectable to <=5 bpm (Yanci Hall RN) Accelerations: 10X10 (Yanci Hall RN) Decelerations: None (Yanci Hall RN) Pitocin (milliunit): Pitocin Remains (milliunits) @ 8 (Yanci Hall RN) Datetime: 11/05/2016 10:01 NBP Sys/Evonne/Mean (mmHg): 159 (QS system process) : 94 (QS system process) : 116 (QS system process) Pulse: 86 (QS system process) LaborFlag: Labor (QS system process) Datetime: 11/05/2016 10:00 Monitor Mode: External (Yanci Hall RN) Frequency (min): 2-3 (Yanci Hall RN) Quality: Mild (Yanci Hall RN) Duration (sec): 50-60 (Yanci Hall RN) Duration Criteria: Less than Two 120 Second Contractions (Yanci Hall RN) Pattern: Normal: <= 5 Contractions in 10 Minutes (Yanci Hall RN) Resting Tone (Palpate): Relaxed (Yanci Hall RN) Monitor Mode: External US (Yanci Hall RN) FHR Baseline Rate : 135 (Yanci Hall RN) Variability: Moderate 6-25 bpm (Yanci Hall RN) Accelerations: None (Yanci Hall RN) Decelerations: None (Yanci Hall RN) Pitocin (milliunit): Pitocin Increased to (milliunits) @ 8 (Yanci Hall RN)
[2016-11-05] MEDS ORDERED: MISOPROSTOL 0.2 MG TABLET ONE (12:51)
[2016-11-05] MEDS ORDERED: EPHEDRINE SULFATE INJ 50 MG/1 ML AMPULE ONE (12:51)
[2016-11-05] MEDS ORDERED: BUPIVACAINE HCL 0.25 % INJ/PF (2.5 MG/1 ML) 30 ML VIAL ONE (12:52)
[2016-11-05] MEDS ORDERED: OXYTOCIN/NORMAL SALINE 20 UNIT/1,000 ML RTUINJ ONE (12:52)
[2016-11-05] MEDS ORDERED: LIDOCAINE 1% INJ-PF (10 MG/ML) 30 ML SDV ONE (12:52)
[2016-11-05] MEDS ORDERED: FENTANYL/BUPIVACAINE/NS/PF 200 MCG/100 ML RTUINJ EPI ONE (12:52)
--- NOTE | 2016-11-05 14:00 | L&D Flow Sheet ---
LD Flowsheet Datetime Report Generated by CPN: 11/05/2016 14:00 Datetime: 11/05/2016 13:55 NBP Sys/Evonne/Mean (mmHg): 156 (QS system process) : 86 (QS system process) : 114 (QS system process) Pulse: 98 (QS system process) Pulse: 107 (QS system process) SpO2 (%): 99 (QS system process) LaborFlag: Labor (QS system process) Datetime: 11/05/2016 13:53 Procedure Verify: Correct Patient Identity; Correct Side and Site are Marked; Accurate Procedure Consent Form; Agreement on Procedure to be Done; Correct Patient Position (Yanci Hall RN) Anesthesia Comments: Dr. Boykin at bedside (Yanci Hall RN) Datetime: 11/05/2016 13:46 NBP Sys/Evonne/Mean (mmHg): 149 (QS system process) : 81 (QS system process) : 108 (QS system process) Pulse: 97 (QS system process) LaborFlag: Labor (QS system process) Datetime: 11/05/2016 13:38 Procedure Verify: Correct Patient Identity; Correct Side and Site are Marked; Accurate Procedure Consent Form; Agreement on Procedure to be Done (Yanci Hall RN) Anesthesia Comments: Dr. Boykin called. Plan to do epidural in 15-20 minutes (Yanci Hall RN) Datetime: 11/05/2016 13:31 NBP Sys/Evonne/Mean (mmHg): 132 (QS system process) : 106 (QS system process) : 116 (QS system process) Pulse: 100 (QS system process) LaborFlag: Labor (QS system process) Datetime: 11/05/2016 13:30 Monitor Mode: External (Yanci Hall RN) Frequency (min): 1-2 (Yanci Hall RN) Quality: Mild/Moderate (Yanci Hall RN) Duration (sec): 60-80 (Yanci Hall RN) Resting Tone (Palpate): Relaxed (Yanci Hall RN) Monitor Mode: External US (Yanci Hall RN) FHR Baseline Rate : 135 (Yanci Hall RN) Variability: Moderate 6-25 bpm (Yanci Hall RN) Accelerations: 15X15 (Yanci Hall RN) Decelerations: None (Yanci Hall RN) Pitocin (milliunit): Pitocin Remains (milliunits) @ 20 (Yanci Hall RN) Datetime: 11/05/2016 13:16 NBP Sys/Evonne/Mean (mmHg): 134 (QS system process) : 109 (QS system process) : 118 (QS system process) Pulse: 92 (QS system process) LaborFlag: Labor (QS system process) Datetime: 11/05/2016 13:15 Monitor Mode: External (Yanci Hall RN) Frequency (min): 1-2 (Yanci Hall RN) Quality: Mild/Moderate (Yanci Hall RN) Duration (sec): 60-80 (Yanci Hall RN) Resting Tone (Palpate): Relaxed (Yanci Hall RN) Monitor Mode: External US (Yanci Hall RN) FHR Baseline Rate : 140 (Yanci Hall RN) Variability: Moderate 6-25 bpm (Yanci Hall RN) Accelerations: 15X15 (Yanci Hall RN) Decelerations: None (Yanci Hall RN) Pitocin (milliunit): Pitocin Remains (milliunits) @ 20 (Yanci Hall RN) Datetime: 11/05/2016 13:13 IV/Blood Work: New IV Bag Hung (Yanci Hall RN) Datetime: 11/05/2016 13:02 NBP Sys/Evonne/Mean (mmHg): 147 (QS system process) : 86 (QS system process) : 112 (QS system process) Pulse: 83 (QS system process) LaborFlag: Labor (QS system process) Datetime: 11/05/2016 13:00 Monitor Mode: External (Ynaci Hall RN) Frequency (min): 1-2 (Yanci Hall RN) Quality: Mild/Moderate (Yanci Hall RN) Duration (sec): 60-80 (Yanci Hall RN) Resting Tone (Palpate): Relaxed (Yanci Hall RN) Monitor Mode: External US (Yanci Hall RN) FHR Baseline Rate : 140 (Yanci Hall RN) Variability: Moderate 6-25 bpm (Yanci Hall RN) Accelerations: None (Yanci Hall RN) Decelerations: None (Yanci Hall RN) Pitocin (milliunit): Pitocin Remains (milliunits) @ 20 (Yanci Hall RN) Datetime: 11/05/2016 12:46 NBP Sys/Evonne/Mean (mmHg): 136 (QS system process) : 82 (QS system process) : 104 (QS system process) Pulse: 83 (QS system process) LaborFlag: Labor (QS system process) Datetime: 11/05/2016 12:45 Monitor Mode: External (Yanci Hall RN) Frequency (min): 1-2 (Yanci Hall RN) Quality: Mild/Moderate (Yanci Hall RN) Duration (sec): 60-80 (Yanci Hall RN) Resting Tone (Palpate): Relaxed (Yanci Hall RN) Monitor Mode: External US (Yanci Hall RN) FHR Baseline Rate : 135 (Yanci Hall RN) Variability: Moderate 6-25 bpm (Yanci Hall RN) Accelerations: 10X10 (Yanci Hall RN) Decelerations: None (Yanci Hall RN) Datetime: 11/05/2016 12:40 Pain Coping: Requesting Pain Medication or Epidural (Yanci Hall RN) IV/Blood Work: IV Bolus Started (Yanci Hall RN) Procedure Verify: Correct Patient Identity; Correct Side and Site are Marked; Accurate Procedure Consent Form; Agreement on Procedure to be Done (Yanci Hall RN) Datetime: 11/05/2016 12:33 Dilatation (cm): 3.0 (Yanci Hall RN) Effacement (%): 70 (Yanci Hall RN) Station: -2 (Yanci Hall RN) Exam by: Casie Cast CNM (Yanci Hall RN) Membrane Status: Ruptured (Yanci Hall RN) Membranes Rupture Method: Artificial (Yanci Hall RN) Amniotic Fluid Color: Clear (Yanci Hall RN) Amniotic Fluid Amount: Large (Yanci Hall RN) Amniotic Fluid Odor: Normal (Yanci Hall RN) Datetime: 11/05/2016 12:31 Communication Comments: A. Serene CNM at bedside (Yanci Hall RN) Datetime: 11/05/2016 12:30 Monitor Mode: External (Yanci Hall RN) Frequency (min): 1-2 (Yanci Hall RN) Quality: Mild/Moderate (Yanci Hall RN) Duration (sec): 60-80 (Yanci Hall RN) Duration Criteria: Less than Two 120 Second Contractions (Yanci Hall RN) Pattern: Normal: <= 5 Contractions in 10 Minutes (Yanci Hall RN) Resting Tone (Palpate): Relaxed (Yanci Hall RN) Monitor Mode: External US (Yanci Hall RN) FHR Baseline Rate : 135 (Yanci Hall RN) Variability: Moderate 6-25 bpm (Yanci Hall RN) Accelerations: 15X15 (Yanci Hall RN) Decelerations: None (Yanci Hall RN) Pitocin (milliunit): Pitocin Increased to (milliunits) @ 20 (Yanci Hall RN) Datetime: 11/05/2016 12:16 NBP Sys/Evonne/Mean (mmHg): 128 (QS system process) : 91 (QS system process) : 106 (QS system process) Pulse: 78 (QS system process) LaborFlag: Labor (QS system process) Datetime: 11/05/2016 12:15 Monitor Mode: External; Palpation (Yanci Hall RN) Frequency (min): 1-2 (Yanci Hall RN) Quality: Mild/Moderate (Yanci Hall RN) Duration (sec): 60-90 (Yanci Hall RN) Duration Criteria: Less than Two 120 Second Contractions (Yanci Hall RN) Pattern: Normal: <= 5 Contractions in 10 Minutes (Yanci Hall RN) Resting Tone (Palpate): Relaxed (Yanci Hall RN) Monitor Mode: External US (Yanci Hall RN) FHR Baseline Rate : 135 (Yanci Hall RN) Variability: Moderate 6-25 bpm (Yanci Hall RN) Accelerations: 15X15 (Yanci Hall RN) Decelerations: None (Yanci Hall RN) Datetime: 11/05/2016 12:02 NBP Sys/[place]/Mean (mmHg): 123 (QS system process) : 85 (QS system process) : 98 (QS system process) Pulse: 83 (QS system process) LaborFlag: Labor (QS system process) Datetime: 11/05/2016 12:00 Monitor Mode: External; Palpation (Yanci Hall RN) Frequency (min): 1-2 (Yanci Hall RN) Quality: Mild/Moderate (Yanci Hall RN) Duration (sec): 50-70 (Yanci Hall RN) Duration Criteria: Less than Two 120 Second Contractions (Yanci Hall RN) Pattern: Normal: <= 5 Contractions in 10 Minutes (Yanci Hall RN) Resting Tone (Palpate): Relaxed (Yanci Hall RN) Monitor Mode: External US (Yanci Hall RN) FHR Baseline Rate : 135 (Yanci Hall RN) Variability: Moderate 6-25 bpm (Yanci Hall RN) Accelerations: 15X15 (Yanci Hall RN) Decelerations: None (Yanci Hall RN)
--- NOTE | 2016-11-05 16:00 | L&D Flow Sheet ---
LD Flowsheet Datetime Report Generated by CPN: 11/05/2016 16:00 Datetime: 11/05/2016 15:54 NBP Sys/Evonne/Mean (mmHg): 134 (QS system process) : 85 (QS system process) : 104 (QS system process) Pulse: 100 (QS system process) LaborFlag: Labor (QS system process) Datetime: 11/05/2016 15:38 Patient Position/Activity: Tailors (Yanci Hall, RN) Datetime: 11/05/2016 15:37 Dilatation (cm): 8.0 (Yanci Hall RN) Effacement (%): 70 (Yanci Hall RN) Station: -1 (Yanci Hall RN) Exam by: A. Emmlevi CNM (Yanci Hall RN) Datetime: 11/05/2016 15:34 Communication Comments: A. Emmel CNM at bedside (Yanci Hall RN) Datetime: 11/05/2016 15:30 Monitor Mode: External (Yanci Hall, RN) Frequency (min): 1-3 (Yanci Hall RN) Quality: Mild/Moderate (Yanci Hall RN) Duration (sec): 40-70 (Yanci Hall RN) Resting Tone (Palpate): Relaxed (Yanci Hall RN) Monitor Mode: External US (Yanci Hall RN) FHR Baseline Rate : 125 (Yanci Hall RN) Variability: Moderate 6-25 bpm (Yanci Hall RN) Accelerations: 15X15 (Yanci Hall RN) Decelerations: Early (Yanci Hall RN) Pitocin (milliunit): Pitocin Remains (milliunits) @ 20 (Yanci Hall RN) Datetime: 11/05/2016 15:25 NBP Sys/Evonne/Mean (mmHg): 123 (QS system process) : 82 (QS system process) : 97 (QS system process) Pulse: 90 (QS system process) LaborFlag: Labor (QS system process) Datetime: 11/05/2016 15:17 Patient Position/Activity: Left Extreme; Peanut Ball (Yanci Hall RN) Datetime: 11/05/2016 15:15 Monitor Mode: External (Yanci Hall, RN) Frequency (min): 1-3 (Yanci Hall, RN) Quality: Mild/Moderate (Yancijoshua Hall, RN) Duration (sec): 30-60 (Yancijoshua Hall, RN) Resting Tone (Palpate): Relaxed (Yancijoshua Hall, RN) Monitor Mode: External US (Yanci Hall, RN) FHR Baseline Rate : 125 (Yancijoshua Hall, RN) Variability: Moderate 6-25 bpm (Yanci Rafael, RN) Accelerations: 15X15 (Yanci Hall, RN) Decelerations: None (Yanci Hall, RN) Datetime: 11/05/2016 15:09 NBP Sys/Evonne/Mean (mmHg): 125 (QS system process) : 75 (QS system process) : 94 (QS system process) Pulse: 104 (QS system process) LaborFlag: Labor (QS system process) Datetime: 11/05/2016 15:00 Monitor Mode: External (Yanci Hall RN) Frequency (min): 1-2.5 (Yanci Hall RN) Quality: Mild/Moderate (Yanci Hall RN) Duration (sec): 40-70 (Yanci Hall, RN) Resting Tone (Palpate): Relaxed (Yanci Hall RN) Monitor Mode: External US (Yanci Hall RN) FHR Baseline Rate : 125 (Yanci Hall RN) Variability: Moderate 6-25 bpm (Yanci Hall, RN) Accelerations: None (Yanci Hall, RN) Decelerations: None (Yanci Hall, RN) Pitocin (milliunit): Pitocin Remains (milliunits) @ 20 (Yanci Hall RN) Datetime: 11/05/2016 14:55 NBP Sys/Evonne/Mean (mmHg): 126 (QS system process) : 71 (QS system process) : 92 (QS system process) Pulse: 98 (QS system process) LaborFlag: Labor (QS system process) Datetime: 11/05/2016 14:45 Monitor Mode: External (Yanci Hall RN) Frequency (min): 1-2 (Yanci Hall RN) Quality: Mild/Moderate (Yanci Hall RN) Duration (sec): 60-90 (Yanci Hall, RN) Duration Criteria: Less than Two 120 Second Contractions (Yanci Hall, RN) Pattern: Normal: <= 5 Contractions in 10 Minutes (Yanci Hall RN) Resting Tone (Palpate): Relaxed (Yanci Hall, RN) Monitor Mode: External US (Yanci Hall RN) FHR Baseline Rate : 130 (Yanci Hall, RN) Variability: Moderate 6-25 bpm (Yanci Hall, RN) Accelerations: 15X15 (Yanci Hall, RN) Decelerations: None (Yanci Hall, RN) Pitocin (milliunit): Pitocin Remains (milliunits) @ 20 (Yanci Hall, RN) Datetime: 11/05/2016 14:42 Monitor Interventions for FHR: Ultrasound Adjusted (Yanci Hall RN) Patient Position/Activity: Peanut Ball; Right Extreme (Yanci Hall RN) Datetime: 11/05/2016 14:38 NBP Sys/Evonne/Mean (mmHg): 113 (QS system process) : 69 (QS system process) : 85 (QS system process) Pulse: 125 (QS system process) LaborFlag: Labor (QS system process) Datetime: 11/05/2016 14:33 NBP Sys/Evonne/Mean (mmHg): 127 (QS system process) : 71 (QS system process) : 94 (QS system process) Pulse: 99 (QS system process) LaborFlag: Labor (QS system process) Datetime: 11/05/2016 14:31 Patient Care Comments: IV fluids returned to 125ml/hr (Yanci Hall RN) Datetime: 11/05/2016 14:30 Monitor Mode: External (Yanci Hall RN) Frequency (min): 1-1.5 (Yanci Hall RN) Quality: Mild/Moderate (Yanci Hall RN) Duration (sec): 60-80 (Yanci Hall RN) Resting Tone (Palpate): Relaxed (Yanci Hall RN) Monitor Mode: External US (Yanci Hall RN) FHR Baseline Rate : 135 (Yanci Hall RN) Variability: Moderate 6-25 bpm (Yanci Hall RN) Accelerations: None (Yanci Hall RN) Decelerations: Late (Yanci Hall RN) Actions for Decelerations: Side to Side; IV Bolus; Blood Pressure (Yanci Hall RN) Pitocin (milliunit): Pitocin Remains (milliunits) @ 20 (Yanci Hall RN) Datetime: 11/05/2016 14:28 NBP Sys/Evonne/Mean (mmHg): 133 (QS system process) : 77 (QS system process) : 99 (QS system process) Pulse: 106 (QS system process) LaborFlag: Labor (QS system process) Datetime: 11/05/2016 14:24 NBP Sys/Evonne/Mean (mmHg): 127 (QS system process) : 72 (QS system process) : 93 (QS system process) Pulse: 100 (QS system process) LaborFlag: Labor (QS system process) Datetime: 11/05/2016 14:23 Anesthesia Interventions Other: Ephedrine (Yanci Rafael, RN) Anesthesia Comments: 5mg (Yanci Hall, RN) Datetime: 11/05/2016 14:19 NBP Sys/Evonne/Mean (mmHg): 123 (QS system process) : 65 (QS system process) : 84 (QS system process) Pulse: 115 (QS system process) LaborFlag: Labor (QS system process) Datetime: 11/05/2016 14:16 NBP Sys/Evonne/Mean (mmHg): 111 (QS system process) : 62 (QS system process) : 80 (QS system process) Pulse: 86 (QS system process) LaborFlag: Labor (QS system process) Datetime: 11/05/2016 14:15 Monitor Mode: External (Etelvina Vitrano, RN) Frequency (min): 1-2.5 (Etelvina Vitrano, RN) Quality: Mild/Moderate (Etelvina Vitrano, RN) Duration (sec): 50-90 (Etelvina Vitrano, RN) Duration Criteria: Less than Two 120 Second Contractions (Etelvina Vitrano, RN) Pattern: Normal: <= 5 Contractions in 10 Minutes (Etelvina Vitrano, RN) Resting Tone (Palpate): Relaxed (Etelvina Vitrano, RN) Monitor Mode: External US (Etelvina Vitrano, RN) FHR Baseline Rate : 130 (Etelvina Vitrano, RN) Variability: Moderate 6-25 bpm (Etelvina Vitrano, RN) Accelerations: 15X15 (Etelvina Vitrano, RN) Decelerations: Late (Etelvina Vitrano, RN) Pitocin (milliunit): Pitocin Remains (milliunits) @ 20 (Etelvina Vitrano, RN) Datetime: 11/05/2016 14:14 NBP Sys/Evonne/Mean (mmHg): 105 (QS system process) : 57 (QS system process) : 75 (QS system process) Pulse: 90 (QS system process) Anesthesia Interventions Other: Ephedrine (Yanci Hall RN) Anesthesia Comments: 5mg (Yanci Hall RN) LaborFlag: Labor (QS system process) Datetime: 11/05/2016 14:10 NBP Sys/Evonne/Mean (mmHg): 105 (QS system process) : 55 (QS system process) : 73 (QS system process) Pulse: 104 (QS system process) LaborFlag: Labor (QS system process) Datetime: 11/05/2016 14:09 I/O Interventions: Romero Cath Inserted (Yanci Hall, RN) Datetime: 11/05/2016 14:06 NBP Sys/Evonne/Mean (mmHg): 108 (QS system process) NBP Sys/Evonne/Mean (mmHg): 112 (QS system process) : 58 (QS system process) : 79 (QS system process) : 75 (QS system process) Pulse: 137 (QS system process) Pulse: 120 (QS system process) Epidural Procedure Other: Pump Started (Yanci Hall RN) LaborFlag: Labor (QS system process) Datetime: 11/05/2016 14:04 NBP Sys/Evonne/Mean (mmHg): 138 (QS system process) : 67 (QS system process) : 96 (QS system process) Pulse: 117 (QS system process) LaborFlag: Labor (QS system process) Datetime: 11/05/2016 14:03 NBP Sys/Evonne/Mean (mmHg): 158 (QS system process) : 77 (QS system process) : 110 (QS system process) Pulse: 110 (QS system process) LaborFlag: Labor (QS system process) Datetime: 11/05/2016 14:02 NBP Sys/Evonne/Mean (mmHg): 165 (QS system process) : 98 (QS system process) : 126 (QS system process) Pulse: 114 (QS system process) LaborFlag: Labor (QS system process) Datetime: 11/05/2016 14:01 NBP Sys/Evonne/Mean (mmHg): 157 (QS system process) : 95 (QS system process) : 120 (QS system process) Pulse: 110 (QS system process) Epidural Procedure: Cath Placed (Yanci Hall RN) Epidural Procedure: Test Dose (Yanci Hall RN) LaborFlag: Labor (QS system process) Datetime: 11/05/2016 14:00 Pulse: 107 (QS system process) SpO2 (%): 100 (QS system process) Monitor Mode: External (Etelvina Rodriguez RN) Frequency (min): 1.5-2.5 (Etelvina Rodriguez, RN) Quality: Mild/Moderate (Etelvina Michael, RN) Duration (sec): 50-80 (Etelvinakai Rodriguez, RN) Duration Criteria: Less than Two 120 Second Contractions (Etelvina Rodriguez, RN) Pattern: Normal: <= 5 Contractions in 10 Minutes (Etelvina Michael, RN) Resting Tone (Palpate): Relaxed (Etelvina Rodriguez, RN) Monitor Mode: External US (Etelvina Rodriguez RN) Comments: Tracing maternal HR d/t pt position for epidural. (Etelvina Rodriguez RN) Pitocin (milliunit): Pitocin Remains (milliunits) @ 20 (Etelvina Rodriguez RN) LaborFlag: Labor (QS system process)
--- NOTE | 2016-11-05 17:08 | L&D Progress Notes ---
PROGRESS NOTES Datetime Report Generated by CPN: 11/05/2016 17:08 PROGRESS NOTE Impression: Normal Progression of Labor Plan: Continue Present Management; Augmentation Informed Consent Obtained: Risks, Benefits and Alternatives Discussed Vital Signs : Reviewed Comment: pt reports increased pressure repositioned to high fowlers pt with epidural in place FHTs 120s average variability uterine contractions 1-3 min anticipate VAGINAL EXAM Dilatation: 8 Effacement: 90 Station: -1 MEMBRANES Membranes: Ruptured Membranes: Ruptured Amniotic Fluid Color: Clear FETUS A Monitoring: External US Accelerations: 15X15 Decelerations: Early FHR Category: Category I Presentation: Vertex SIGNATURE SIGNATURE: ,[id number] SIGNATURE: [id number] SIGNATURE: ,[id number] Assignment: Agus Mcfarland MD Signature: with User ID: [email or web address] : with User ID: [email or web address]
[2016-11-05] MEDS ORDERED: ACETAMINOPHEN WITH CODEINE #3 TABLET PO PRN (17:45)
[2016-11-05] MEDS ORDERED: ZOLPIDEM TARTRATE 5 MG TABLET PO PRN (17:45)
[2016-11-05] MEDS ORDERED: DIBUCAINE 1% OINTMENT 28 GM TP PRN (17:45)
[2016-11-05] MEDS ORDERED: BENZOCAINE/MENTHOL AEROSOL SPRAY 56 ML TOP PRN (17:45)
[2016-11-05] MEDS ORDERED: DIPH/PERTUSS(ACELL)/TETANUS VAC/PF 0.5 ML SYR (>=10YO) IM PRN (17:45)
[2016-11-05] MEDS ORDERED: MEASLES,MUMPS&RUBELLA VACC/PF 0.5 ML VIAL SUBCUT PRN (17:45)
--- NOTE | 2016-11-05 17:50 | Delivery Summary ---
Del Sum A-C Datetime Report Generated by CPN: 11/05/2016 17:49 ADMISSION DATA Chief Complaint: Uterine Contractions Indication for Induction: Gest. HTN/PreEclampsia/Eclampsia Admission Impression: Term, Intrauterine Admit Provider Comments: pt presents for external cephalic version u/s reveals pt is vertex presentation induction protocol reviewed 31 yo EDC 11/11/16 EGA 38.6 history of chtn polyhydramnios abdomen nontender FHTs 120s average variability induction protocol start pitocin AROM- clear pt tolerated well anticipate DELIVERY PERSONNEL Delivery Doctor:: Saul Cast CNM Nurse Pool Player Certified:: Saul Cast CNM Labor and Delivery Nurse:: Yanci Hall RNbox maker wood Nurse:: Tamia New RN Seat Scooper Machine/TALLOW PUMPER: Hannah Summers CNA II Seat Scooper Machine/TALLOW PUMPER: ST Saravanan Additional Personnel: : LEYLA Rebolledo MATERNAL INFORMATION Delivery Anesthesia: Epidural Medications After Delivery: Pitocin Bolus-Please Comment Meds After Delivery Comment: Pitocin 20 units in 1000 ml NSS open for bolus Estimated Blood Loss (ml): 300 Maternal Complications: Other Other Maternal Complications: GHTN with poly Provider Comments: delivery of viable male infant bulb suctioned on perineum infant to abdomen tactile stimulation elicits spont cry 3vc cord clamped and cut by FOB delivery of placenta marginal insertion placenta to pathology EBL 300 cc perineum intact hemostasis achieved LABOR SUMMARY EDC: 11/13/2016 00:00 No. Babies in Womb: 1 Attempted: No Labor Anesthesia: Epidural LABOR INFORMATION Reason for Induction: Gestational Hypertension Onset of Labor: 11/05/2016 12:33 Complete Dilatation: 11/05/2016 16:32 Oxytocin: Induction Group B Beta Strep: negative Antibiotics # of Doses: 0 Steroids Given: None Reason Steroids Not Administered: Not Applicable MEMBRANES Membranes Rupture Method: Artificial Rupture of Membranes: 11/05/2016 12:33 Length of Rupture (hr): 4.07 Amniotic Fluid Color: Clear Amniotic Fluid Amount: Large Amniotic Fluid Odor: Normal STAGES OF LABOR Stage 1 hr: 3 Stage 1 min: 59 Stage 2 hr: 0 Stage 2 min: 5 Stage 3 hr: 0 Stage 3 min: 3 Total Time in Labor hr: 4 Total Time in Labor min: 7 VAGINAL DELIVERY Episiotomy: None Laceration Extension: N/A Laceration Type: None Sponge Count Correct: N/A Sharps Count Correct: N/A CSECTION DELIVERY Primary Indication: N/A Secondary Indication: N/A CSection Incidence: N/A Labor: N/A Elective: N/A CSection Incision: N/A BABY A INFORMATION Infant Delivery Date/Time: 11/05/2016 16:37 Method of Delivery: Vaginal Born in Route : No : N/A Forceps: N/A Vacuum Extraction: N/A Shoulder Dystocia : No PRESENTATION/POSITION BABY A Presentation: Cephalic Cephalic Presentation: Vertex Vertex Position: Right Occipital Anterior Breech Presentation: N/A PLACENTA INFORMATION BABY A Placenta Delivery Time : 11/05/2016 16:40 Placenta Method of Delivery: Spontaneous Placenta Status: Delivered SCORES BABY A Heart Rate 1 min: >100 bpm Resp Effort 1 min: Good Cry Reflex Irritability 1 min: Cough or Sneeze or Pulls Away Muscle Tone 1 min: Active Motion Color 1 min: Blue/Pale Resuscitation Effort 1 min: Tactile Stimulation SCORE 1 MIN: 8 Heart Rate 5 min: >100 bpm Resp Effort 5 min: Good Cry Reflex Irritability 5 min: Cough or Sneeze or Pulls Away Muscle Tone 5 min: Active Motion Color 5 min: Body [place], Extremities Blue Resuscitation Effort 5 min: N/A SCORE 5 MIN: 9 Resuscitation Effort 10 min: N/A INFORMATION BABY A Gestational Age at Delivery: 38.6 Gestational Status: Early Term- 37- 38.6 Weeks Infant Outcome : Liveborn Infant Condition : Stable Sex: Male IDENTIFICATION BABY A Infant Verification Date/Time: 11/05/2016 16:49 ID Band Number: [id number] Mother's Name Verified: Yes Infant RN Verifying : OPAL LANDRY RN Additional Verifying Personnel: S [employer], [facility] WEIGHT/LENGTH BABY A Infant Birthweight (gm): 3860 Infant Weight (lb): 8 Infant Weight (oz): 8 Infant Length (in): 20.50 Length (cm): 52.07 CORD INFORMATION BABY A No. Cord Vessels: 3 Nuchal Cord : N/A Cord Blood Taken: Yes-For Storage (Mom's Blood type +) Infant Suction: None ASSESSMENT BABY A Complications: Polyhydramnios Physical Findings at Delivery: Within Normal Limits Physical Findings- Other: infant to nbn @1730 Respirations: Appears Normal Skin to Skin: Yes Jack Tamp Operator/ALS Called : No Infant Care By: Tono New RN Transferred To: Remains with Mother BABY B INFORMATION : N/A SIGNATURES Assignment: Agus Mcfarland MD Signature: with User ID: [email or web address] : with User ID: [email or web address]
--- NOTE | 2016-11-05 18:01 | L&D Flow Sheet ---
LD Flowsheet Datetime Report Generated by CPN: 11/05/2016 18:00 Datetime: 11/05/2016 17:46 Stage of : Recovery (Yanci Hall RN) NBP Sys/Evonne/Mean (mmHg): 139 (QS system process) : 86 (QS system process) : 106 (QS system process) Pulse: 88 (QS system process) Pain Scale: 1 (Yanci Hall RN) Pain Presence: Constant (Yanci Hall RN) Pain Type: Dull; Ache (Yanci Hall RN) Pain Location: Perineum (Yanci Hall RN) Datetime: 11/05/2016 17:31 Stage of : Recovery (Yanci Hall RN) NBP Sys/Evonne/Mean (mmHg): 138 (QS system process) : 81 (QS system process) : 105 (QS system process) Pulse: 93 (QS system process) Pain Scale: 1 (Yanci Hall RN) Pain Presence: Constant (Yanci Hall RN) Pain Type: Dull; Ache (Yanci Hall RN) Pain Location: Perineum (Yanci Hall RN) Datetime: 11/05/2016 17:16 Stage of : Recovery (Yanci Hall RN) NBP Sys/Evonne/Mean (mmHg): 133 (QS system process) : 79 (QS system process) : 101 (QS system process) Pulse: 100 (QS system process) Pain Scale: 1 (Yanci Hall RN) Pain Presence: Constant (Yanci Hall RN) Pain Type: Dull; Ache (Yanci Hall RN) Pain Location: Perineum (Yanci Hall RN) Datetime: 11/05/2016 17:01 Stage of : Recovery (Yanci Hall RN) NBP Sys/Evonne/Mean (mmHg): 115 (QS system process) : 84 (QS system process) : 96 (QS system process) Pulse: 92 (QS system process) Pain Scale: 1 (Yanci Hall RN) Pain Presence: Constant (Yanci Hall RN) Pain Type: Dull; Ache (Yanci Hall RN) Pain Location: Perineum (Yanci Hall RN) Datetime: 11/05/2016 16:46 Stage of : Recovery (Yanci Hall RN) NBP Sys/Evonne/Mean (mmHg): 111 (QS system process) : 75 (QS system process) : 89 (QS system process) Pulse: 113 (QS system process) Temperature (F): 97.9 (Yanci Hall RN) Temperature (C): 36.6 (QS system process) Pain Scale: 1 (Yanci Hall RN) Pain Presence: Constant (Yanci Hall RN) Pain Type: Dull; Ache (Yanci Hall RN) Pain Location: Perineum (Yanci Hall RN) Datetime: 11/05/2016 16:45 Stage of : Recovery (Yanci Hall, RN) Datetime: 11/05/2016 16:37 Stage 2 Comments: delivery liveborn male with spontaneous lusty cry noted. Placed on maternal abdomen, dried and stimulated. Cord clamped after delay and cut by FOB. Placed skin to skin on maternal chest (Yanci Hall, RN) Datetime: 11/05/2016 16:35 Comments: FHTs 130s (Aynci Hall, RN) Datetime: 11/05/2016 16:34 I/O Interventions: Romero Discontinued (Yanci Hall RN) Instructional Method: Demo; Verbal; Patient Instructed; Family/Support Person Instructed; Verbalized Understanding (Yanci Hall RN) Labor/Induction: Pushing Methods (Yanci Hall RN) Pushing: Coached on Pushing; Urge to Push (Yanci Hall RN) Pushing Position: Pushing with Contractions (Yanci Hall RN) Preparation for Delivery: Perineal Prep Done; Setup for Delivery (Yanci Hall RN) Stage 2 Comments: Elizabeth Cast CNM present at bedside for delivery. (Yanci Hall RN) Datetime: 11/05/2016 16:32 Dilatation (cm): 10.0 (Yanci Hall RN) Effacement (%): 100 (Yanci Hall RN) Station: 2 (Yanci Hall RN) Exam by: Casie Cast CNM (Yanci Hall RN) Communication Comments: RN and provider to remain at bedside constantly assessing FHTs (Yanci Hall RN) Datetime: 11/05/2016 16:30 Monitor Mode: External; Palpation (Yanci Hall RN) Frequency (min): 1-2 (Yanci Hall RN) Quality: Moderate (Yanci Hall RN) Duration (sec): 50-70 (Yanci Hall RN) Resting Tone (Palpate): Relaxed (Yanci Hall RN) Monitor Mode: External US (Yanci Hlal RN) FHR Baseline Rate : 125 (Yanci Hall RN) Variability: Moderate 6-25 bpm (Yanci Hall RN) Accelerations: None (Yanci Hall RN) Decelerations: Early; Variable (Yanci Hall RN) Pitocin (milliunit): Pitocin Remains (milliunits) @ 20 (Yanci Hall RN) Datetime: 11/05/2016 16:24 NBP Sys/Evonne/Mean (mmHg): 137 (QS system process) : 68 (QS system process) : 96 (QS system process) Pulse: 122 (QS system process) LaborFlag: Labor (QS system process) Datetime: 11/05/2016 16:15 Monitor Mode: External (Yanci Hall RN) Frequency (min): 1-2 (Yanci Hall RN) Quality: Moderate (Yanci Hall RN) Duration (sec): 50-70 (Yanci Hall RN) Resting Tone (Palpate): Relaxed (Yanci Hall RN) Monitor Mode: External US (Yanci Hall RN) FHR Baseline Rate : 130 (Yanci Hall RN) Variability: Moderate 6-25 bpm (Yanci Hall RN) Accelerations: 15X15 (Yanci Hall RN) Decelerations: Early (Yanci Hall RN) Pitocin (milliunit): Pitocin Remains (milliunits) @ 20 (Yanci Hall RN) Datetime: 11/05/2016 16:11 NBP Sys/Evonne/Mean (mmHg): 129 (QS system process) : 85 (QS system process) : 98 (QS system process) Pulse: 111 (QS system process) Patient Position/Activity: Peanut Ball; Right Extreme (Yanci Hall RN) LaborFlag: Labor (QS system process) Datetime: 11/05/2016 16:00 Monitor Mode: External (Yanci Hall RN) Frequency (min): 1-2 (Yanci Hall RN) Quality: Mild/Moderate (Yanci Hall RN) Duration (sec): 50-60 (Yanci Hall RN) Resting Tone (Palpate): Relaxed (Yanci Hall RN) Monitor Mode: External US (Yanci Hall RN) FHR Baseline Rate : 130 (Yanci Hall RN) Variability: Moderate 6-25 bpm (Yanci Hall, RN) Accelerations: None (Yanci Hall RN) Decelerations: Early (Yanci Hall RN) Pitocin (milliunit): Pitocin Remains (milliunits) @ 20 (Yanci Hall, RN)
[2016-11-05] MEDS ORDERED: IBUPROFEN 800 MG TABLET ONE (18:18)
[2016-11-05] MEDS ORDERED: LABETALOL HCL 200 MG TABLET ONE (18:51)
--- NOTE | 2016-11-05 20:56 | Admission Physical ---
Datetime Report Generated by CPN: 11/05/2016 20:55 CURRENT ADMISSION Chief Complaint: Uterine Contractions Indication for Induction: Gest. HTN/PreEclampsia/Eclampsia Admit Plan: Initiate Labor Protocol ALLERGIES Medication Allergies: No Medication Allergies: No Known Allergies (11/05/2016) Latex: Unknown Food Allergies: none Environmental Allergies: none OBSTETRICAL HISTORY EDC: 11/13/2016 00:00 : 4 Para: 2 Term: 2 : 0 SAB: 1 IAB: 0 Ectopic: 0 Livin Cesareans: 0 VBACs: 0 Multiple Births: 0 Gestational Diabetes: No Rh Sensitization: No Incompetent Cervix: No SHALINI: No Infertility: No ART Treatment: No Uterine Anomaly: No IUGR: No Hx Previous C/S: No Macrosomia: No Hx Loss/Stillborn: No PIH: Yes Hx : No Placenta Previa/Abruption: No Depression/PP Depression: Yes PTL/PROM: No Post Hemorrhage: No Obstetrical History Comments: G1: 02/2009 10wk EAB G2: 05/2010 39wk 7.11# F Pre Eclampsia G3: 09/2012 39wk 8.13# F Epidural [facility] Pre Eclampsia G4: Current , poly SEE RECORDS Alcohol: No Marijuana : No Cocaine: No Other Illicit Drugs: No Cigarettes: Former Smoker. [id number] MEDICAL HISTORY Diabetes: No Blood Transfusion: No Pulmonary Disease (Asthma, TB): No Breast Disease: No Hypertension: No Cessation Systems Outreach Specialist Surgery: No Heart Disease: No Hosp/Surgery: Yes Autoimmune Disorder: No Anesthetic Complications: No Kidney Disease: No Abnormal Pap Smear: No Neuro/Epilepsy: No Psychiatric Disorders: Yes Other Medical Diseases: No Hepatitis/Liver Disease: No Significant Family History: No Varicosities/Phlebitis: No Trauma/Violence : No Thyroid Dysfunction: No Medical History Comments: Toxemia w/ _2; Depression, OCD, Anxiety, Decreased Libido; lap choley in 09/05 INFECTIOUS HISTORY Gonorrhea: No Genital Herpes: No Chlamydia: No Tuberculosis: No Syphilis: No Hepatitis: No HIV/AIDS Exposure: No Rash or Viral Illness: No HPV: No PHYSICAL EXAM General: Normal HEENT: Normal Neurologic: Normal Thyroid: Normal Heart: Normal Lungs: Normal Breast: Normal Back: Normal Abdomen: Normal Genitourinary Exam: Normal Extremities: Normal DTRs: Normal Pelvic Type: Adequate Vital Signs: Reviewed VAGINAL EXAM Dilatation: 8 Effacement: 90 Station: -1 MEMBRANES Membranes: Ruptured Amniotic Fluid Color: Clear FETUS A EGA: 38.6 Monitoring: External US Variability: Moderate 6-25bpm Accelerations: 15X15 Decelerations: None Presentation: Vertex Admit Comment: pt presents for external cephalic version u/s reveals pt is vertex presentation induction protocol reviewed 31 yo EDC 11/11/16 EGA 38.6 history of chtn polyhydramnios abdomen nontender FHTs 120s average variability induction protocol start pitocin AROM- clear pt tolerated well anticipate PLANS FOR LABOR AND DELIVERY Labor and Delivery: None Pain Management: Epidural Feeding Preference: Formula Benefit of Breast Feed Discussed: Yes Circumcision: Yes INFORMED CONSENT Informed Consent Obtained: Risks, Benefits and Alternatives Discussed Assignment: Agus Mcfarland MD Signature: with User ID: [email or web address] : with User ID: [email or web address]
[2016-11-05] MEDS: DOCUSATE SODIUM 100 MG CAPSULE PO SCH (21:14)
[2016-11-05] MEDS: FERROUS SULFATE 325 MG TABLET PO SCH (21:14)
[2016-11-05] MEDS: IBUPROFEN 800 MG TABLET PO SCH (23:01)
[2016-11-06] MEDS: IBUPROFEN 800 MG TABLET PO SCH ×3 (05:50→21:43)
[2016-11-06] MEDS ORDERED: LABETALOL HCL 200 MG TABLET PO SCH (06:00)
--- NOTE | 2016-11-06 07:00 | L&D Flow Sheet ---
LD Flowsheet Datetime Report Generated by CPN: 11/06/2016 07:00 Datetime: 11/05/2016 20:01 NBP Sys/Evonne/Mean (mmHg): 132 (QS system process) : 83 (QS system process) : 101 (QS system process) Pulse: 112 (QS system process) Respirations: 16 (Ann Emma, RN) Pain Presence: None/Denies (Ann Emma, RN) Datetime: 11/05/2016 19:46 NBP Sys/Evonne/Mean (mmHg): 141 (QS system process) : 85 (QS system process) : 107 (QS system process) Pulse: 90 (QS system process) Datetime: 11/05/2016 19:31 NBP Sys/Evonne/Mean (mmHg): 149 (QS system process) : 91 (QS system process) : 114 (QS system process) Pulse: 94 (QS system process) Datetime: 11/05/2016 19:16 NBP Sys/Evonne/Mean (mmHg): 149 (QS system process) : 93 (QS system process) : 115 (QS system process) Pulse: 105 (QS system process) Datetime: 11/05/2016 19:08 Stage of : Recovery (Yanci Hall, RN) Datetime: 11/05/2016 19:06 NBP Sys/Evonne/Mean (mmHg): 162 (QS system process) : 96 (QS system process) : 120 (QS system process) Pulse: 91 (QS system process)
[2016-11-06 07:39] LABS: HEMATOCRIT 27.6 % (36.0-47.0); HEMOGLOBIN 9.2 g/dL (12.0-15.5); MEAN CORPUSCULAR HEMOGLOBIN 27.4 pg (27.0-33.4); MEAN CORPUSCULAR HGB CONC 33.2 g/dL (32.0-36.0); MEAN CORPUSCULAR VOLUME 83 fl (80-97); RED BLOOD COUNT 3.34 10^6/uL (3.72-5.28); RED CELL DISTRIBUTION WIDTH 14.4 % (11.5-14.0); WHITE BLOOD COUNT 9.1 10^3/uL (4.0-10.5)
[2016-11-06] MEDS ORDERED: HYDROXYZINE PAMOATE 50 MG CAPSULE PO PRN (09:53)
--- NOTE | 2016-11-06 09:56 | PDOC PROGRESS REPORT ---
Subjective-OB Subjective: Post Delivery Day: 31 year old. Denies any needs at this time Doing well, c/o of itching and benadry not working, bottle feeding, appetite good, ambulating Physical Exam (OB) Vital Signs: Temp Pulse Resp BP Pulse Ox 97.5 F 76 16 132/96 H 100 11/06/16 08:00 11/06/16 08:00 11/06/16 08:00 11/06/16 08:00 11/06/16 08:00 Intake & Output 11/05/16 11/06/16 11/07/16 06:59 06:59 06:59 Weight 94.2 kg - PIH/Pre-Eclampsia Clonus: Negative Headache: Absent Epigastric Pain: No Visual Changes: No - Lochia Lochia Amount: Small 10-25 ml Lochia Color: Rubra/Red - Abdomen Description: Soft, Round Fundal Description: Firm, Midline Fundal Height: u/u - u/2 Objective-Diagnostic Laboratory: 11/06/16 07:32 11/05/16 07:32 11/06/16 07:32 WBC 9.1 RBC 3.34 L Hgb 9.2 L Hct 27.6 L MCV 83 MCH 27.4 MCHC 33.2 RDW 14.4 H Plt Count 238 Assessment and Plan(PN) - Assessment and Plan (1) (normal spontaneous vaginal delivery) Is this a current diagnosis for this admission?: Yes - Time Spent with Patient Time with patient: Less than 15 minutes Medications reviewed and adjusted accordingly: Yes - Disposition Anticipated Discharge: Home Within: within 24 hours
[2016-11-06] MEDS: DOCUSATE SODIUM 100 MG CAPSULE PO SCH ×2 (10:06→17:32)
[2016-11-06] MEDS: PRENATAL VITAMIN W-O CA NO5/FE FUMARATE/FA CAPSULE PO SCH (10:06)
[2016-11-06] MEDS: SENNOSIDES/DOCUSATE 8.6-50 MG 1 EACH TABLET PO SCH (10:06)
[2016-11-06] MEDS: FERROUS SULFATE 325 MG TABLET PO SCH ×2 (10:06→17:32)
[2016-11-06] MEDS: LABETALOL HCL 200 MG TABLET PO SCH ×2 (10:07→21:43)
[2016-11-06] MEDS: ACETAMINOPHEN WITH CODEINE #3 TABLET PO PRN (10:18)
--- NOTE | 2016-11-06 18:01 | L&D Current Admission ---
Current Admit Datetime Report Generated by CPN: 11/06/2016 18:00 ADMISSION INFORMATION Current Admit Date/Time: 11/05/2016 07:24 (10/21/2016 13:53:Yanci Hall RN) Reason for Admission: Induction of Labor (10/21/2016 13:53:Yanci Hall RN) Chief Complaint: Scheduled Induction of Labor (11/05/2016 07:49:Yanci Hall RN) Medications During : Vitamin; Acetaminophen (Tylenol) (10/21/2016 13:53:Yanci Hall RN) Meds During -Oth: Diclegis (10/21/2016 13:53:Yanci Hall RN) EGA per Dates: 38.6 (10/21/2016 13:53:QS system process) Method of Arrival: Ambulatory (10/21/2016 13:53:Yanci Hall RN) Reason for Induction: Chronic Hypertension; Polyhydramnios (10/21/2016 13:53:Yanci Hall RN) Records Available: Yes (10/21/2016 13:53:Yanci Hall RN) General Admission Information: Reviewed (10/21/2016 13:53:Yanci Hall RN) General Admission Reviewed By: Casie Hall RN (10/21/2016 13:53:Yanci Hall RN) BELONGINGS/ADVANCED DIRECTIVES Valuables/Personal Effects: None (10/21/2016 13:53:Yanci Hall RN) Other Belongings: see consents (10/21/2016 13:53:Yanci Hall RN) Disposition of Belongings: Kept with Patient (10/21/2016 13:53:Yanci Hall RN) Advance Direct for Healthcare: No, and Wants No Information (10/21/2016 13:53:Yanci Hall RN) Durable Power of Diagnostic Assistant: No (10/21/2016 13:53:Yanci Hall RN) Living Will: No (10/21/2016 13:53:Yanci Hall RN) Organ Donor: Yes (10/21/2016 13:53:Yanci Hall RN) Pt Rights Information Given: Yes (10/21/2016 13:53:Yanci Hall RN) Pt Understands Pt Rights: Yes (10/21/2016 13:53:Yanci Hall RN) DOMESTIC VIOLANCE SCREENING Dom Viol Threatened/Hurt: No (10/21/2016 13:53:Yanci Hall RN) Hx of Abuse/Neglect past 2yrs: No (10/21/2016 13:53:Yanci Hall RN) Feel Unsafe Going Home: No (10/21/2016 13:53:Yanci Hall RN) Addt'l Observ Indicating Abuse: No (10/21/2016 13:53:Yanci Hall RN) Reason Unable to Complete Screen: N/A, Screen Completed (10/21/2016 13:53:Yanci Hall RN) Considered Personal Harm/Suicide: No (10/21/2016 13:53:Yanci Hall RN) NUTRITIONAL/FUNCTIONAL SCREENING Problem with Appetite >5 Days: No (10/21/2016 13:53:Yanci Hall RN) Chew/Swallow Difficulties: No (10/21/2016 13:53:Yanci Hall RN) Inappropriate Wt Gain/Loss: No (10/21/2016 13:53:Yanci Hall RN) Presence Skin Breakdown/Ulcer: No (10/21/2016 13:53:Yanci Hall RN) Special Diet: No (10/21/2016 13:53:Yanci Hall RN) Pt Requests Brazing Furnace Feeder Visit: No (10/21/2016 13:53:Yanci Hall RN) Hx of Any of the Following?: N/A (10/21/2016 13:53:Yanci Hall RN) New Diagnosis of: N/A (10/21/2016 13:53:Yanci Hall RN) Requires Assist w/Ambulation: No (10/21/2016 13:53:Yanci Hall RN) Uses Assist Device to Ambulate: No (10/21/2016 13:53:Yanci Hall RN) Pt Requires Help w/ADL's: No (10/21/2016 13:53:Yanci Hall RN)
--- NOTE | 2016-11-06 18:01 | L&D General Admission ---
General Admit Datetime Report Generated by CPN: 11/06/2016 18:00 INFORMATION Patient Age: 31 (05/09/2016 16:59:QS system process) EDC: 11/13/2016 00:00 (07/20/2016 14:02:Anna Hernandez RN) LMP: 02/07/2016 00:00 (07/20/2016 14:02:Luis Kumar RN) : 4 (07/20/2016 14:02:Anna Hernandez RN) Para: 2 (10/21/2016 15:12:Yanci Hall RN) Term: 2 (07/20/2016 14:02:Anna Hernandez RN) : 0 (07/20/2016 14:02:Anna Hernandez RN) Spontaneous Abortions: 1 (07/20/2016 14:02:Anna Hernandez RN) Induced Abortions: 0 (07/20/2016 14:02:Anna Hernandez RN) Livin (07/20/2016 14:02:Anna Hernandez RN) Cesareans: 0 (07/20/2016 14:02:Anna Hernandez RN) VBACs: 0 (07/20/2016 14:02:Anna Hernandez RN) Ectopic: 0 (07/20/2016 14:02:Anna Hernandez RN) Multiple Births: 0 (07/20/2016 14:02:Anna Hernandez RN) Baby, Number in Womb: 1 (10/21/2016 15:12:Yanci Hall RN) CARE Primary Kosher Dietary Service Supervisor: [facility] (07/20/2016 14:02:Anna Hernandez RN) Month of 1st Visit: April (07/20/2016 14:02:Yanci Hall RN) Adequate Care: Yes (07/20/2016 14:02:Anna Hernandez RN) Prepregnancy Weight (lb): 185 (07/20/2016 14:02:Luis Kumar RN) Prepregnancy Weight (kg): 84.1 (07/20/2016 14:02:QS system process) Height (in): 67 (11/06/2016 09:39:QS system process) ALLERGIES Medication Allergy: No (07/20/2016 14:02:Anna Hernandez RN) Medication Allergies: No Known Allergies (11/05/2016) (11/05/2016 07:07:QS system process) Latex Allergy: Unknown (07/20/2016 14:02:Anna Hernandez RN) Food Allergies: none (07/20/2016 14:02:Anna Hernandez RN) Environmental Allergies: none (07/20/2016 14:02:Anna Hernandez RN) COMMUNICATION Primary Language: Cymraes (07/20/2016 14:02:Anna Hernandez RN) Medical Tx Preferred Language: Cymraes (07/20/2016 14:02:Anna Hernandez RN) Communication Barrier(s): None (07/20/2016 14:02:Anna Hernandez RN) DEMOGRAPHICS Address: [address] [place] [address] [place] [id number] (09/04/2016 11:39:QS system process) Zipcode: [phone] (05/09/2016 16:59:QS system process) Home (05/09/2016 16:59:QS system process) N: [id number] (05/09/2016 16:59:QS system process) Next of Kin Name: BEVERLY ANAYA (09/04/2016 11:39:QS system process) Next of Kin (09/04/2016 11:39:QS system process) Next of Kin Relationship: SPO (05/09/2016 16:59:QS system process) Date of : 1985 (05/09/2016 16:59:QS system process) Marital Status: (05/09/2016 16:59:QS system process) Sex: Female (05/09/2016 16:59:QS system process) Race: (05/09/2016 16:59:QS system process) Ethnicity: Non- or (05/09/2016 16:59:QS system process) Islam: None (09/04/2016 11:39:QS system process) DRUG AND ALCOHOL USE Alcohol: No (07/20/2016 14:02:Anna Hernandez RN) Cigarettes: Former Smoker. [id number] (07/20/2016 14:02:Anna Hernandez RN) Marijuana: No (07/20/2016 14:02:Anna Hernandez RN) Cocaine: No (07/20/2016 14:02:Anna Hernandez RN) Other Illicit Drugs: No (07/20/2016 14:02:Anna Hernandez RN) VACCINE HISTORY Influenza Vaccine: No (07/20/2016 14:02:Randa Álvarez RN) Pneumococcal Vaccine: No (07/20/2016 14:02:Randa Álvarez RN) Tetanus Vaccine: Yes (07/20/2016 14:02:Yanci Hall RN) Tdap Vaccine: Yes (07/20/2016 14:02:Randa Álvarez RN) Tdap Date: 09/04/16 (07/20/2016 14:02:Yanci Hall RN) Hepatitis B Vaccine: Yes (07/20/2016 14:02:Randa Álvarez RN) Fire Equipment Inspector Helper: [facility] (07/20/2016 14:02:Randa Álvarez RN) Feeding Preference: Formula (07/20/2016 14:02:Randa Álvarez RN) Benefit of Breast Feed Discussed: Yes (07/20/2016 14:02:Randa Álvarez RN) Circumcision: Yes (07/20/2016 14:02:Randa Álvarez RN) Tubal Ligation: No (07/20/2016 14:02:Randa Álvarez RN) Consent: N/A (07/20/2016 14:02:Randa Henri, RN) Consent Signed: N/A (07/20/2016 14:02:Randa Álvarez RN) Pain Management Plans: Epidural (07/20/2016 14:02:Randa Álvarez RN) Plans for Labor and Delivery: None (07/20/2016 14:02:Randa Álvarez RN) Support Person: Beverly Anaya (07/20/2016 14:02:Randa Álvarez RN) Support Person Relationship: (07/20/2016 14:02:Randa Álvarez RN) Cultural/Spritual Practice: No (07/20/2016 14:02:Randa Álvarez RN) Spir/Cult Dietary Needs: No (07/20/2016 14:02:Randa Álvarez RN) LIVING SITUATION/DISCHARGE PLAN Living Arrangements: House (07/20/2016 14:02:Randa Álvarez RN) Adequate Access to:: Electric; Heat; Refrigeration; Plumbing/Running water; Phone; Transportation (07/20/2016 14:02:Randa Álvarez RN) WIC Program: No (07/20/2016 14:02:Randa Álvarez RN) Discharge Lay Midwife Person: Beverly (07/20/2016 14:02:Randa Álvarez RN) Person to Help after Discharge: tere (07/20/2016 14:02:Randa Álvarez RN) Currently Using Commun Resources: Yes (07/20/2016 14:02:Randa Álvarez RN) Specify Current Resource Used: medicaid (07/20/2016 14:02:Randa Álvarez RN) Outside Agency/Woodworking Craftsman: Yes (07/20/2016 14:02:Randa Álvarez RN) Car Seat for Discharge: Yes (07/20/2016 14:02:Randa Álvarez RN) Adoption Requested: No (07/20/2016 14:02:Randa Álvarez RN) LABS Blood Type: B Positive (07/20/2016 14:02:Luis Kumar RN) Antibody Screen: Negative (07/20/2016 14:02:Luis Kumar RN) Hemoglobin: 9.2 L (11/06/2016 07:32:QS system process) Hematocrit: 27.6 L (11/06/2016 07:32:QS system process) MCV: 83 (11/06/2016 07:32:QS system process) Group Beta Strep: negative (07/20/2016 14:02:Ann Carter RN) Gonorrhea: Negative (07/20/2016 14:02:Luis Kumar RN) Chlamydia: Negative (07/20/2016 14:02:Luis Kumar RN) RPR/VDRL: Nonreactive (07/20/2016 14:02:Luis Kumar RN) HIV Exposure Test: Negative (07/20/2016 14:02:Luis Kumar RN) Hepatitis B: Negative (07/20/2016 14:02:Luis Kumar RN) Rubella: Immune (07/20/2016 14:02:Luis Kumar RN) OB/PREVIOUS HISTORY LMP: 02/07/2016 00:00 (07/20/2016 14:02:Luis Kumar RN) History of Previous : No (07/20/2016 14:02:Anna Hernandez RN) History of Gestational Diabetes: No (07/20/2016 14:02:Anna Hernandez RN) History of PIH: Yes (07/20/2016 14:02:Anna Hernandez RN) History of Incompetent Cervix: No (07/20/2016 14:02:Anna Hernandez RN) History of Placenta Previa/Abrup: No (07/20/2016 14:02:Anna Hernandez RN) History of Macrosomia: No (07/20/2016 14:02:Anna Hernandez RN) History of IUGR: No (07/20/2016 14:02:Anna Hernandez RN) History of Hemorrhage: No (07/20/2016 14:02:Anna Hernandez RN) History of Loss/Stillborn: No (07/20/2016 14:02:Anna Hernandez RN) History of : No (07/20/2016 14:02:Anna Hernandez RN) History of D (Rh) Sensitization: No (07/20/2016 14:02:Anna Hernandez RN) History Recurrent Loss/Stillborn: No (07/20/2016 14:02:Anna Hernandez RN) History Depression/PP Depression: Yes (07/20/2016 14:02:Luis Kumar RN) History of Uterine Anomaly/SHALINI: No (07/20/2016 14:02:Anna Hernandez RN) History of Infertility: No (07/20/2016 14:02:Anna Hernandez RN) History of ART Treatment: No (07/20/2016 14:02:Anna Hernandez RN) History of SHALINI: No (07/20/2016 14:02:Anna Hernandez RN) Comments Obstetrical History: G1: 02/2009 10wk EAB G2: 05/2010 39wk 7.11# F Pre Eclampsia G3: 09/2012 39wk 8.13# F Epidural [facility] Pre Eclampsia G4: Current , poly (07/20/2016 14:02:Yanci Hall RN) MEDICAL HISTORY Med Hx Diabetes: No (07/20/2016 14:02:Anna Hernandez RN) Med Hx Hypertension: No (07/20/2016 14:02:Luis Kumar RN) Med Hx Heart Disease: No (07/20/2016 14:02:Anna Hernandez RN) Med Hx Autoimmune Disorder: No (07/20/2016 14:02:Anna Hernandez RN) Med Hx Kidney Disease/UTI: No (07/20/2016 14:02:Anna Hernandez RN) Med Hx Neurologic/Epilepsy: No (07/20/2016 14:02:Anna Hernandez RN) Med Hx Psychiatric Disorders: Yes (07/20/2016 14:02:Luis Kumar RN) Med Hx Hepatitis/Liver Disease: No (07/20/2016 14:02:Anna Hernandez RN) Med Hx Varicosities/Phlebitis: No (07/20/2016 14:02:Anna Hernandez RN) Med Hx Thyroid Dysfunction: No (07/20/2016 14:02:Anna Hernandez RN) Med Hx Trauma/Violence: No (07/20/2016 14:02:Anna Hernandez RN) Med Hx Blood Transfusion: No (07/20/2016 14:02:Anna Hernandez RN) Med Hx Pulmonary (Asthma,TB): No (07/20/2016 14:02:Anna Hernandez RN) Med Hx Breast: No (07/20/2016 14:02:Anna Hernandez RN) Med Hx OUTER DIAMETER TECHNICIAN Surgery: No (07/20/2016 14:02:Anna Hernandez RN) Med Hx Hospitalization/Surgery: Yes (07/20/2016 14:02:Luis Kumar RN) Med Hx Anesthetic Complications: No (07/20/2016 14:02:Anna Hernandez RN) Med Hx Abnormal Pap Smear: No (07/20/2016 14:02:Anna Hernandez RN) Other Medical Diseases: No (07/20/2016 14:02:Anna Hernandez RN) Med Hx Significant Family Hx: No (07/20/2016 14:02:Anna Hernandez RN) Details of Med/Surg Hx: Toxemia w/ 1_2; Depression, OCD, Anxiety, Decreased Libido; lap sandeepey in 09/05 (07/20/2016 14:02:Randa Álvarez RN) INFECTIOUS HISTORY Inf Hx Gonorrhea: No (07/20/2016 14:02:Anna Hernandez RN) Inf Hx Chlamydia: No (07/20/2016 14:02:Anna Hernandez RN) Inf Hx Syphilis: No (07/20/2016 14:02:Anna Hernandez RN) Inf Hx HIV/AIDS: No (07/20/2016 14:02:Anna Hernandez RN) Inf Hx Human Papilloma Virus: No (07/20/2016 14:02:Anna Hernandez RN) Inf Hx Pt/Partner Genital Herpes: No (07/20/2016 14:02:Anna Hernandez RN) Inf Hx Tuberculosis/Exposure: No (07/20/2016 14:02:Anna Hernandez RN) Inf Hx Hepatitis B,C: No (07/20/2016 14:02:Anna Hernandez RN) Inf Hx Rash or Viral Illness: No (07/20/2016 14:02:Anna Hernandez RN) GENETIC HISTORY Gen Hx Age >=35 at [place]: No (07/20/2016 14:02:Anna Hernandez RN) Gen Hx Thalassemia: No (07/20/2016 14:02:Anna Hernandez RN) Gen Hx Congenital Heart Defect: No (07/20/2016 14:02:Anna Hernandez RN) Gen Hx Neural Tube Defect: No (07/20/2016 14:02:Anna Hernandez RN) Gen Hx Down's Syndrome: No (07/20/2016 14:02:Anna Hernandez RN) Gen Hx Ancelmo-Sachs: No (07/20/2016 14:02:Anna Hernandez RN) Gen Hx Francesco: No (07/20/2016 14:02:Anna Hernandez RN) Gen Hx Familial Dysautonomia: No (07/20/2016 14:02:Anna Hernandez RN) Gen Hx Sickle Cell Disease/Trait: No (07/20/2016 14:02:Anna Hernandez RN) Gen Hx Hemophilia/Blood Disorder: No (07/20/2016 14:02:Anna Hernandez RN) Gen Hx Muscular Dystrophy: No (07/20/2016 14:02:Anna Hernandez RN) Gen Hx Cystic Fibrosis: No (07/20/2016 14:02:Anna Hernandez RN) Gen Hx Huntingtons Chorea: No (07/20/2016 14:02:Anna Hernandez RN) Gen Hx Mental Retardation/Autism: No (07/20/2016 14:02:Anna Hernandez RN) Gen Hx Tested for Fragile X: No (07/20/2016 14:02:Anna Hernandez RN) Gen Hx Other Inher/Chromosomal: No (07/20/2016 14:02:Anna Hernandez RN) Gen Hx Maternal Metabolic DO: No (07/20/2016 14:02:Anna Hernandez RN) Gen Hx Pt Father or FOB Defect: No (07/20/2016 14:02:Anna Hernandez RN) Gen Hx Other Genetic History: No (07/20/2016 14:02:Anna Hernandez RN) Gen Hx Drugs/Meds since LMP: No (07/20/2016 14:02:Anna Hernandez RN) Details of Genetic History: extra digits (07/20/2016 14:02:Anna Hernandez RN)
--- NOTE | 2016-11-06 18:16 | L&D Care Plan ---
LD CARE PLANS Datetime Report Generated by CPN: 11/06/2016 18:15 Datetime: 11/05/2016 07:12 Pain State: Risk For (Ann Carter RN) Related To: Labor and Delivery Process; Surgical Procedure; Complication(s) of ; Treatment and Procedures (Ann Carter RN) Goal(s): Patients Pain will be Assessed and Managed; Patient will Verbalize Adequate Relief of Pain or the Ability to [place] with Current Pain (Ann Carter RN) Interventions: Assess Pain Severity on Scale of 0 (None) to 5 (Severe); Assess Type, Location and Intensity of Pain Each Time Client Reports Discomfort and Notify Provider if Unusal Pain Develops; Encourage Proper Breathing and Relaxation Techniques; Offer Alternatives Such as Repositioning, Calm Environment, Massages, Diversional Activities, Ice Pack, Splinting, and Ambulation; Administer Analgesics as Ordered; Assist with Epidural Placement as Appropriate; Evaluate Therapeutic Effectiveness of Medication and Treatments (Ann Carter RN) Outcome: Patient will Report Absence or Relief of Pain Consistent with Established Pain Goal (Ann Carter RN) Status: Ongoing (Ann Carter RN) Outcome: Patient will have a Decrease in Signs and Symptoms of Discomfort (nAn Carter RN) Status: Ongoing (Ann Carter RN) Outcome: Pain will be Controlled During Procedures (Ann Carter RN) Status: Ongoing (Ann Carter RN) Anxiety State: Risk For (Ann Carter RN) Related To: Labor and Delivery Process; Surgical Procedure; Perceived or Actual Threat to ; Fear of Unknown; Situational Crisis; Medical Interventions; Significant Life Event (Ann Carter RN) Goal(s): Patient will have Decreased Anxiety and be able to Function at Acceptable Levels (Ann Carter RN) Interventions: Assess Verbal and Nonverbal Behavioral Indicators of Anxiety; Assist Patient to Identify and Verbalize Symptoms of Anxiety; Identify and Demonstrate Techniques to Control Anxiety; Assist Patient with Coping Mechanisms to Manage Anxiety; Provide Theraputic Touch for the Patient; Explain to Patient, Using a Calm Reassuring Approach and Nonmedical Terms, All Activities, Procedures, and Concerns; Instruct Patient and Family about Post Discharge Care, Limitations, Symptoms to Report and Resources Available (Ann Carter RN) Outcome: Patient will Identify, Verbalize and Demonstrate Techniques to Control Anxiety (Ann Carter RN) Status: Ongoing (Ann Carter RN) Outcome: Patient's Posture, Facial Expressions, Gestures and Activity Level will Reflect Decreased Anxiety (Ann Carter RN) Status: Ongoing (Ann Carter RN) Outcome: Patient will Verbalize a Sense of Control and/or Acceptance of the Situation (Ann Carter RN) Status: Ongoing (Ann Carter RN) Outcome: Patient will Identify and Utilize Support Person (Ann Carter RN) Status: Ongoing (Ann Carter RN) Knowledge Deficit State: Risk For (Ann Carter RN) Related To: Labor and Delivery Process; Surgical Procedures; Treatment and Procedures (Ann Carter RN) Goal(s): Patient will Accurately Verbalize Understanding of Plan of Care and Treatment; Patient and Family will Accurately Verbalize Understanding of the Disease Process (Ann Carter RN) Interventions: Assess Motivation and Willingness of Patient/Family to Learn; Assess Preferred Learning Mode: One to One Instruction, Reading, Videos, Group Discussion or Demonstration; Assess Barriers to Learning: Pain, Emotional State, Language Barrier, Cognitive Impairment, Visual or Hearing Deficits; Assess Patient and Family Knowledge of Disease Process, Medications and Treatment; Discuss Therapy and/or Treatment Options, Describe Rationale Behind Management, Therapy and Treatment Recommendations; Instruct Patient and Family on Signs and Symptoms to Report; Instruct Patient and Family on Medication Effects and Side Effects; Provide Appropriate and Timely Education Using Multiple Techniques; Provide Patient and Family with Support Group Information and Resources; Give Clear and Thorough Explanations and Demonstrations (Ann Carter RN) Outcome: Patient and Family will Verbalize Understanding of Condition, Treatment and Signs and Symptoms to Report (Ann Carter RN) Status: Ongoing (Ann Carter RN) Outcome: Patient will Identify Perceived Learning Needs and Express Motivation to Learn (Ann Carter RN) Status: Ongoing (Ann Carter RN) Outcome: Patient will Verbalize Understanding of Desired Content, and/or Performs Desired Skill Prior to Discharge (Ann Carter RN) Status: Ongoing (Ann Carter RN) Infection State: Risk For (Ann Carter RN) Related To: Invasive Procedures (Ann Carter RN) Goal(s): The Patient will be Free of Infection, Vital Signs Stable and Lab Work within Normal Parameters (Ann Carter RN) Interventions: Instruct and Reinforce Proper Handwashing, Hygiene, and Care Techniques to Patient and Family; Monitor Vital Signs; Monitor Patient for the Following Signs of Infection: Fever, Abdominal Tenderness, Unusual Discharge; Monitor Aminiotic Fluid, Urine and Lochia for Color and Odor; Observe Wounds, Incisions and Invasive Line Sites for Redness, Drainage and Edema; Assess IV Sites per Hospital Policy; Monitor Lab and Test Results and Notify Provider of Abnormal Findings; Assess Nutritional Status and Promote Good Nutrition (Ann Carter RN) Outcome: Patient will Remain Free of Infection (Ann Carter RN) Status: Ongoing (Ann Carter RN) Outcome: Infection will be Recognized Early to Allow for Prompt Treatment (Ann Carter RN) Status: Ongoing (Ann Carter RN) Outcome: Patient will have Vital Signs Within Expected Range (Ann Carter RN) Status: Ongoing (Ann Carter RN) Injury State: Risk For (Ann Carter RN) Related To: Labor and Delivery Process; Gestational Hypertension or Eclampsia (Ann Carter RN) Goal(s): Patient will Remain Free from Injury (Ann Carter RN) Interventions: Monitoring as per Hospital Protocol; Assess Neurological Status; Perform Risk Assessment of Patients with Induction and ; Perform Fall Risk Assessment and Prevention per Hospital Protocol; Perform DVT Risk Assessment and Prophylaxis per Hospital Protocol; Ensure that Oxygen, Suction, and Resuscitation Medications and Equipment are Readily Available; Confirm Patient ID Prior to Procedure(s) and Medication Administration per Hospital Policy (Ann Carter RN) Outcome: Successful Fall Risk Prevention (Ann Catrer RN) Status: Ongoing (Ann Carter RN) Outcome: Patient will Deliver without Adverse Sequela (Ann Carter RN) Status: Ongoing (Ann Carter RN) Outcome: Patient's Neurological Status will Remain Stable (Ann Carter RN) Status: Ongoing (Ann Carter RN)
[2016-11-07] MEDS: IBUPROFEN 800 MG TABLET PO SCH ×2 (05:32→13:50)
--- NOTE | 2016-11-07 06:00 | L&D General Admission ---
General Admit Datetime Report Generated by CPN: 11/07/2016 06:00 INFORMATION Patient Age: 31 (05/09/2016 16:59:QS system process) EDC: 11/13/2016 00:00 (07/20/2016 14:02:Anna Hernandez RN) LMP: 02/07/2016 00:00 (07/20/2016 14:02:Luis Kumar RN) : 4 (07/20/2016 14:02:Anna Hernandez RN) Para: 2 (10/21/2016 15:12:Yanci Hall RN) Term: 2 (07/20/2016 14:02:Anna Hernandez RN) : 0 (07/20/2016 14:02:Anna Hernandez RN) Spontaneous Abortions: 1 (07/20/2016 14:02:Anna Hernandez RN) Induced Abortions: 0 (07/20/2016 14:02:Anna Hernandez RN) Livin (07/20/2016 14:02:Anna Hernandez RN) Cesareans: 0 (07/20/2016 14:02:Anna Hernandez RN) VBACs: 0 (07/20/2016 14:02:Anna Hernandez RN) Ectopic: 0 (07/20/2016 14:02:Anna Hernandez RN) Multiple Births: 0 (07/20/2016 14:02:Anna Hernandez RN) Baby, Number in Womb: 1 (10/21/2016 15:12:Yanci Hall RN) CARE Primary Belt Sander: [facility] (07/20/2016 14:02:Anna Hernandez RN) Month of 1st Visit: April (07/20/2016 14:02:Yanci Hall RN) Adequate Care: Yes (07/20/2016 14:02:Anna Hernandez RN) Prepregnancy Weight (lb): 185 (07/20/2016 14:02:Lius Kumar RN) Prepregnancy Weight (kg): 84.1 (07/20/2016 14:02:QS system process) Height (in): 67 (11/06/2016 09:39:QS system process) ALLERGIES Medication Allergy: No (07/20/2016 14:02:Anna Hernandez RN) Medication Allergies: No Known Allergies (11/05/2016) (11/05/2016 07:07:QS system process) Latex Allergy: Unknown (07/20/2016 14:02:Anna Hernandez RN) Food Allergies: none (07/20/2016 14:02:Anna Hernandez RN) Environmental Allergies: none (07/20/2016 14:02:Anna Hernandez RN) COMMUNICATION Primary Language: Ugandan (07/20/2016 14:02:Anna Hernandez RN) Medical Tx Preferred Language: Ugandan (07/20/2016 14:02:Anna Hernandez RN) Communication Barrier(s): None (07/20/2016 14:02:Anna Hernandez RN) DEMOGRAPHICS Address: [address] [place] [address] [place] [address] (09/04/2016 11:39:QS system process) Zipcode: [address] (05/09/2016 16:59:QS system process) Home (05/09/2016 16:59:QS system process) N: [phone] (05/09/2016 16:59:QS system process) Next of Kin Name: BEVERLY ANAYA (09/04/2016 11:39:QS system process) Next of Kin (09/04/2016 11:39:QS system process) Next of Kin Relationship: SPO (05/09/2016 16:59:QS system process) Date of : 1985 (05/09/2016 16:59:QS system process) Marital Status: (05/09/2016 16:59:QS system process) Sex: Female (05/09/2016 16:59:QS system process) Race: (05/09/2016 16:59:QS system process) Ethnicity: Non- or (05/09/2016 16:59:QS system process) Mu-Ism: None (09/04/2016 11:39:QS system process) DRUG AND ALCOHOL USE Alcohol: No (07/20/2016 14:02:Anna Hernandez RN) Cigarettes: Former Smoker. [id number] (07/20/2016 14:02:Anna Hernandez RN) Marijuana: No (07/20/2016 14:02:Anna Hernandez RN) Cocaine: No (07/20/2016 14:02:Anna Hernandez RN) Other Illicit Drugs: No (07/20/2016 14:02:Anna Hernandez RN) VACCINE HISTORY Influenza Vaccine: No (07/20/2016 14:02:Randa Álvarez RN) Pneumococcal Vaccine: No (07/20/2016 14:02:Randa Álvarez RN) Tetanus Vaccine: Yes (07/20/2016 14:02:Yanci Hall RN) Tdap Vaccine: Yes (07/20/2016 14:02:Randa Álvarez RN) Tdap Date: 09/04/16 (07/20/2016 14:02:Yanci Hall RN) Hepatitis B Vaccine: Yes (07/20/2016 14:02:Randa Álvarez RN) Radiographer Angiogram: [facility] (07/20/2016 14:02:Randa Álvarez RN) Feeding Preference: Formula (07/20/2016 14:02:Randa Álvarez RN) Benefit of Breast Feed Discussed: Yes (07/20/2016 14:02:Randa Álvarez RN) Circumcision: Yes (07/20/2016 14:02:Randa Álvarez RN) Tubal Ligation: No (07/20/2016 14:02:Randa Álvarez RN) Consent: N/A (07/20/2016 14:02:Randa Henri, RN) Consent Signed: N/A (07/20/2016 14:02:Randa Álvarez RN) Pain Management Plans: Epidural (07/20/2016 14:02:Randa Álvarez RN) Plans for Labor and Delivery: None (07/20/2016 14:02:Randa Álvarez RN) Support Person: Beverly Anaya (07/20/2016 14:02:Randa Álvarez RN) Support Person Relationship: (07/20/2016 14:02:Randa Álvarez RN) Cultural/Spritual Practice: No (07/20/2016 14:02:Randa Álvarez RN) Spir/Cult Dietary Needs: No (07/20/2016 14:02:Randa Álvarez RN) LIVING SITUATION/DISCHARGE PLAN Living Arrangements: House (07/20/2016 14:02:Randa Álvarez RN) Adequate Access to:: Electric; Heat; Refrigeration; Plumbing/Running water; Phone; Transportation (07/20/2016 14:02:Randa Álvarez RN) WIC Program: No (07/20/2016 14:02:Randa Álvarez RN) Discharge Branch Logistics Supervisor Person: Beverly (07/20/2016 14:02:Randa Álvarez RN) Person to Help after Discharge: tere (07/20/2016 14:02:Randa Álvarez RN) Currently Using Commun Resources: Yes (07/20/2016 14:02:Randa Álvarez RN) Specify Current Resource Used: medicaid (07/20/2016 14:02:Randa Álvarez RN) Outside Agency/Utility Inspector: Yes (07/20/2016 14:02:Randa Álvarez RN) Car Seat for Discharge: Yes (07/20/2016 14:02:Randa Álvarez RN) Adoption Requested: No (07/20/2016 14:02:Randa Álvarez RN) LABS Blood Type: B Positive (07/20/2016 14:02:Luis Kumar RN) Antibody Screen: Negative (07/20/2016 14:02:Luis Kumar RN) Hemoglobin: 9.2 L (11/06/2016 07:32:QS system process) Hematocrit: 27.6 L (11/06/2016 07:32:QS system process) MCV: 83 (11/06/2016 07:32:QS system process) Group Beta Strep: negative (07/20/2016 14:02:Ann Carter RN) Gonorrhea: Negative (07/20/2016 14:02:Luis Kumar RN) Chlamydia: Negative (07/20/2016 14:02:Luis Kumar RN) RPR/VDRL: Nonreactive (07/20/2016 14:02:Luis Kumar RN) HIV Exposure Test: Negative (07/20/2016 14:02:Luis Kumar RN) Hepatitis B: Negative (07/20/2016 14:02:Luis Kumar RN) Rubella: Immune (07/20/2016 14:02:Luis Kumar RN) OB/PREVIOUS HISTORY LMP: 02/07/2016 00:00 (07/20/2016 14:02:Luis Kumar RN) History of Previous : No (07/20/2016 14:02:Anna Hernandez RN) History of Gestational Diabetes: No (07/20/2016 14:02:Anna Hernandez RN) History of PIH: Yes (07/20/2016 14:02:Anna Hernandez RN) History of Incompetent Cervix: No (07/20/2016 14:02:Anna Hernandez RN) History of Placenta Previa/Abrup: No (07/20/2016 14:02:Anna Hernandez RN) History of Macrosomia: No (07/20/2016 14:02:Anna Hernandez RN) History of IUGR: No (07/20/2016 14:02:Anna Hernandez RN) History of Hemorrhage: No (07/20/2016 14:02:Anna Hernandez RN) History of Loss/Stillborn: No (07/20/2016 14:02:Anna Hernandez RN) History of : No (07/20/2016 14:02:Anna Hernandez RN) History of D (Rh) Sensitization: No (07/20/2016 14:02:Anna Hernandez RN) History Recurrent Loss/Stillborn: No (07/20/2016 14:02:Anna Hernandez RN) History Depression/PP Depression: Yes (07/20/2016 14:02:Luis Kumar RN) History of Uterine Anomaly/SHALINI: No (07/20/2016 14:02:Anna Hernandez RN) History of Infertility: No (07/20/2016 14:02:Anna Hernandez RN) History of ART Treatment: No (07/20/2016 14:02:Anna Hernandez RN) History of SHALINI: No (07/20/2016 14:02:Anna Hernandez RN) Comments Obstetrical History: G1: 02/2009 10wk EAB G2: 05/2010 39wk 7.11# F Pre Eclampsia G3: 09/2012 39wk 8.13# F Epidural [facility] Pre Eclampsia G4: Current , poly (07/20/2016 14:02:Yanci Hlal RN) MEDICAL HISTORY Med Hx Diabetes: No (07/20/2016 14:02:Anna Hernandez RN) Med Hx Hypertension: No (07/20/2016 14:02:Luis Kumar RN) Med Hx Heart Disease: No (07/20/2016 14:02:Anna Hernandez RN) Med Hx Autoimmune Disorder: No (07/20/2016 14:02:Anna Hernandez RN) Med Hx Kidney Disease/UTI: No (07/20/2016 14:02:Anna Hernandez RN) Med Hx Neurologic/Epilepsy: No (07/20/2016 14:02:Anna Hernandez RN) Med Hx Psychiatric Disorders: Yes (07/20/2016 14:02:Luis Kumar RN) Med Hx Hepatitis/Liver Disease: No (07/20/2016 14:02:Anna Hernandez RN) Med Hx Varicosities/Phlebitis: No (07/20/2016 14:02:Anna Hernandez RN) Med Hx Thyroid Dysfunction: No (07/20/2016 14:02:Anna Hernandez RN) Med Hx Trauma/Violence: No (07/20/2016 14:02:Anna Hernandez RN) Med Hx Blood Transfusion: No (07/20/2016 14:02:Anna Hernandez RN) Med Hx Pulmonary (Asthma,TB): No (07/20/2016 14:02:Anna Hernandez RN) Med Hx Breast: No (07/20/2016 14:02:Anna Hernandez RN) Med Hx RISK MANAGEMENT SPECIALIST Surgery: No (07/20/2016 14:02:Anna Hernandez RN) Med Hx Hospitalization/Surgery: Yes (07/20/2016 14:02:Luis Kumar RN) Med Hx Anesthetic Complications: No (07/20/2016 14:02:Anna Hernandez RN) Med Hx Abnormal Pap Smear: No (07/20/2016 14:02:Anna Hernandez RN) Other Medical Diseases: No (07/20/2016 14:02:Anna Hernandez RN) Med Hx Significant Family Hx: No (07/20/2016 14:02:Anna Hernandez RN) Details of Med/Surg Hx: Toxemia w/ 1_2; Depression, OCD, Anxiety, Decreased Libido; lap sandeepey in 09/05 (07/20/2016 14:02:Randa Álvarez RN) INFECTIOUS HISTORY Inf Hx Gonorrhea: No (07/20/2016 14:02:Anna Hernandez RN) Inf Hx Chlamydia: No (07/20/2016 14:02:Anna Hernandez RN) Inf Hx Syphilis: No (07/20/2016 14:02:Anna Hernandez RN) Inf Hx HIV/AIDS: No (07/20/2016 14:02:Anna Hernandez RN) Inf Hx Human Papilloma Virus: No (07/20/2016 14:02:Anna Hernandez RN) Inf Hx Pt/Partner Genital Herpes: No (07/20/2016 14:02:Anna Hernandez RN) Inf Hx Tuberculosis/Exposure: No (07/20/2016 14:02:Anna Hernandez RN) Inf Hx Hepatitis B,C: No (07/20/2016 14:02:Anna Hernandez RN) Inf Hx Rash or Viral Illness: No (07/20/2016 14:02:Anna Hernandez RN) GENETIC HISTORY Gen Hx Age >=35 at [place]: No (07/20/2016 14:02:Anna Hernandez RN) Gen Hx Thalassemia: No (07/20/2016 14:02:Anna Hernandez RN) Gen Hx Congenital Heart Defect: No (07/20/2016 14:02:Anna Hernandez RN) Gen Hx Neural Tube Defect: No (07/20/2016 14:02:Anna Hernandez RN) Gen Hx Down's Syndrome: No (07/20/2016 14:02:Anna Hernandez RN) Gen Hx Ancelmo-Sachs: No (07/20/2016 14:02:Anna Hernandez RN) Gen Hx Francesco: No (07/20/2016 14:02:Anna Hernandez RN) Gen Hx Familial Dysautonomia: No (07/20/2016 14:02:Anna Hernandez RN) Gen Hx Sickle Cell Disease/Trait: No (07/20/2016 14:02:Anna Hernandez RN) Gen Hx Hemophilia/Blood Disorder: No (07/20/2016 14:02:Anna Hernandez RN) Gen Hx Muscular Dystrophy: No (07/20/2016 14:02:Anna Hernandez RN) Gen Hx Cystic Fibrosis: No (07/20/2016 14:02:Anna Hernandez RN) Gen Hx Huntingtons Chorea: No (07/20/2016 14:02:Anna Hernandez RN) Gen Hx Mental Retardation/Autism: No (07/20/2016 14:02:Anna Hernandez RN) Gen Hx Tested for Fragile X: No (07/20/2016 14:02:Anna Hernandez RN) Gen Hx Other Inher/Chromosomal: No (07/20/2016 14:02:Anna Hernandez RN) Gen Hx Maternal Metabolic DO: No (07/20/2016 14:02:Anna Hernandez RN) Gen Hx Pt Father or FOB Defect: No (07/20/2016 14:02:Anna Hernandez RN) Gen Hx Other Genetic History: No (07/20/2016 14:02:Anna Hernandez RN) Gen Hx Drugs/Meds since LMP: No (07/20/2016 14:02:Anna Hernandez RN) Details of Genetic History: extra digits (07/20/2016 14:02:Anna Hernandez RN)
--- NOTE | 2016-11-07 06:00 | L&D Current Admission ---
Current Admit Datetime Report Generated by CPN: 11/07/2016 06:00 ADMISSION INFORMATION Current Admit Date/Time: 11/05/2016 07:24 (10/21/2016 13:53:Yanci Hall RN) Reason for Admission: Induction of Labor (10/21/2016 13:53:Yanci Hall RN) Chief Complaint: Scheduled Induction of Labor (11/05/2016 07:49:Yanci Hall RN) Medications During : Vitamin; Acetaminophen (Tylenol) (10/21/2016 13:53:Yanci Hall RN) Meds During -Oth: Diclegis (10/21/2016 13:53:Yanci Hall RN) EGA per Dates: 38.6 (10/21/2016 13:53:QS system process) Method of Arrival: Ambulatory (10/21/2016 13:53:Yanci Hall RN) Reason for Induction: Chronic Hypertension; Polyhydramnios (10/21/2016 13:53:Yanci Hall RN) Records Available: Yes (10/21/2016 13:53:Yanci Hall RN) General Admission Information: Reviewed (10/21/2016 13:53:Yanci Hall RN) General Admission Reviewed By: Casie Hall RN (10/21/2016 13:53:Yanci Hall RN) BELONGINGS/ADVANCED DIRECTIVES Valuables/Personal Effects: None (10/21/2016 13:53:Yanci Hall RN) Other Belongings: see consents (10/21/2016 13:53:Yanci Hall RN) Disposition of Belongings: Kept with Patient (10/21/2016 13:53:Yanci Hall RN) Advance Direct for Healthcare: No, and Wants No Information (10/21/2016 13:53:Yanci Hall RN) Durable Power of R D Engineer: No (10/21/2016 13:53:Yanci Hall RN) Living Will: No (10/21/2016 13:53:Yanci Hall RN) Organ Donor: Yes (10/21/2016 13:53:Yanci Hall RN) Pt Rights Information Given: Yes (10/21/2016 13:53:Yanci Hall RN) Pt Understands Pt Rights: Yes (10/21/2016 13:53:Yanci Hall RN) DOMESTIC VIOLANCE SCREENING Dom Viol Threatened/Hurt: No (10/21/2016 13:53:Yanci Hall RN) Hx of Abuse/Neglect past 2yrs: No (10/21/2016 13:53:Yanci Hall RN) Feel Unsafe Going Home: No (10/21/2016 13:53:Yanci Hall RN) Addt'l Observ Indicating Abuse: No (10/21/2016 13:53:Yanci Hall RN) Reason Unable to Complete Screen: N/A, Screen Completed (10/21/2016 13:53:Yanci Hall RN) Considered Personal Harm/Suicide: No (10/21/2016 13:53:Yanci Hall RN) NUTRITIONAL/FUNCTIONAL SCREENING Problem with Appetite >5 Days: No (10/21/2016 13:53:Yanci Hall RN) Chew/Swallow Difficulties: No (10/21/2016 13:53:Yanci Hall RN) Inappropriate Wt Gain/Loss: No (10/21/2016 13:53:Yanci Hall RN) Presence Skin Breakdown/Ulcer: No (10/21/2016 13:53:Yanci Hall RN) Special Diet: No (10/21/2016 13:53:Yanci Hall RN) Pt Requests Hardscape Foreman Visit: No (10/21/2016 13:53:Yanci Hall RN) Hx of Any of the Following?: N/A (10/21/2016 13:53:Yanci Hall RN) New Diagnosis of: N/A (10/21/2016 13:53:Yanci Hall RN) Requires Assist w/Ambulation: No (10/21/2016 13:53:Yanci Hall RN) Uses Assist Device to Ambulate: No (10/21/2016 13:53:Yanci Hall RN) Pt Requires Help w/ADL's: No (10/21/2016 13:53:Yanci Hall RN)
[2016-11-07 08:01] VITALS: BP 119/67
--- NOTE | 2016-11-07 09:33 | PDOC PROGRESS REPORT ---
Subjective-OB Subjective: Post Delivery Day: 31 year old. Denies any needs at this time Doing well, ready to go home, hsb at BS, no further itching, needs rx for Labetelol, ambulating, eating well Physical Exam (OB) Vital Signs: Temp Pulse Resp BP Pulse Ox 98.1 F 85 16 119/67 100 11/07/16 07:58 11/07/16 07:58 11/07/16 07:58 11/07/16 07:58 11/07/16 07:58 Intake & Output 11/06/16 11/07/16 11/08/16 06:59 06:59 06:59 Weight 94.2 kg - PIH/Pre-Eclampsia DTR's: 1 + Clonus: Negative Headache: Absent Epigastric Pain: No Visual Changes: No - Lochia Lochia Amount: Scant < 10 ml Lochia Color: Rubra/Red - Abdomen Description: Soft Hernia Present: No Fundal Description: Firm, Midline Fundal Height: u/u - u/2 Objective-Diagnostic Laboratory: 11/06/16 07:32 11/05/16 07:32 Assessment and Plan(PN) - Assessment and Plan (1) (normal spontaneous vaginal delivery) Is this a current diagnosis for this admission?: Yes - Time Spent with Patient Time with patient: Less than 15 minutes Medications reviewed and adjusted accordingly: Yes - Disposition Anticipated Discharge: Home Within: Other - home today
--- NOTE | 2016-11-07 09:38 | PDOC DISCHARGE SUMMARY ---
Final Diagnosis Discharge Date: 11/07/16 - Final Diagnosis (1) (normal spontaneous vaginal delivery) Is this a current diagnosis for this admission?: Yes Discharge Data - Discharge Medication Home Medications: Doxylamine/Pyridoxine HCl [Diclegis Dr 10-10 mg Tablet] 2 tab PO PRN PRN Labetalol HCl [Normodyne 200 mg Tablet] 200 mg PO Q12 #60 tablet 11/07/16 Pnv W-O Ca No5/Fe Fumarate/FA [-U Multiple Vitamin Capsule] 1 cap PO DAILY #0 capsule 11/07/16 Gestational Age: 38.6 Reason(s) for Admission: Induction of Labor, Obstetric Complications - polyhydramnios, PIH Procedures: NST, Ultrasound Intrapartum Procedure(s): Spontaneous Vaginal Delivery - [place]all Data Baby 1 Male at 1 minute: 8 at 5 minutes: 9 Weight: 3.856 kg Home with Mother: Yes Complications: No - Diagnosis Test Laboratory: Temp Pulse Resp BP Pulse Ox 98.1 F 85 16 119/67 100 11/07/16 07:58 11/07/16 07:58 11/07/16 07:58 11/07/16 07:58 11/07/16 07:58 11/05/16 11/05/16 11/06/16 07:05 07:32 07:32 RBC 3.58 L 3.34 L Hgb 9.8 L 9.2 L Hct 29.4 L 27.6 L Urine Opiates Screen NEGATIVE - Discharge information/Instructions Discharge Activity: Activity As Tolerated, No Lifting Over 10 Pounds, Pelvic Rest, No tub bath Discharge Diet: As Tolerated, Regular Disposition: HOME, SELF-CARE Follow up with: [facility] in: 2
[2016-11-07] MEDS: ACETAMINOPHEN WITH CODEINE #3 TABLET PO PRN (09:50)
[2016-11-07] MEDS: SENNOSIDES/DOCUSATE 8.6-50 MG 1 EACH TABLET PO SCH (10:28)
[2016-11-07] MEDS: DOCUSATE SODIUM 100 MG CAPSULE PO SCH (10:29)
[2016-11-07] MEDS: LABETALOL HCL 200 MG TABLET PO SCH (10:29)
[2016-11-07] MEDS: FERROUS SULFATE 325 MG TABLET PO SCH (10:29)
[2016-11-07] MEDS: PRENATAL VITAMIN W-O CA NO5/FE FUMARATE/FA CAPSULE PO SCH (10:29)
== END 2016-11-07 14:16 | disposition home or self-care (01) | DRG 775 ==
LOC: LR 06:46 → 2S 20:15
PROVIDERS: ADMIT Obstetrics & Gynecology; ATTEND Obstetrics & Gynecology
PROC: 10E0XZZ Delivery of Products of Conception, External Approach (ICD-10-PCS; principal; 2016-11-05)
PROC: 4A1HXCZ Monitoring of Products of Conception, Cardiac Rate, External Approach (ICD-10-PCS; 2016-11-05)
DX: O40.3XX0 Polyhydramnios, third trimester, not applicable or unspecified (principal); O13.4 Gestational [pregnancy-induced] hypertension without significant proteinuria, complicating childbirth; O99.344 Other mental disorders complicating childbirth; F41.8 Other specified anxiety disorders; Z3A.38 38 weeks gestation of pregnancy; Z37.0 Single live birth; Z87.891 Personal history of nicotine dependence; Z90.49 Acquired absence of other specified parts of digestive tract
CPT/HCPCS: 36415; 80053; 80307; 81005; 83615; 84550; 85025; 85027; 86592; 86850; 86900; 86901; 88307; 94760; J2590; J3490

== ENCOUNTER → 2017-09-25 | Outpatient (CLI) | payer BC, MEDICAID | LOC: LAB 13:05 | PROVIDERS: ATTEND Nurse Practitioner Family | DX: Z32.01 Encounter for pregnancy test, result positive (principal) | CPT/HCPCS: 36415; 84702 ==

== ENCOUNTER → 2017-09-28 | Outpatient (CLI) | payer BC, MEDICAID | LOC: LAB 07:49 | PROVIDERS: ATTEND Nurse Practitioner Family | DX: Z32.01 Encounter for pregnancy test, result positive (principal) | CPT/HCPCS: 36415; 84702 ==

== ENCOUNTER 2018-03-02 15:33 | Outpatient (CLI) | payer BC, MEDICAID ==
[2018-03-02 16:22] LABS: APPEARANCE,URINE CLEAR; BILIRUBIN,URINE NEGATIVE (NEGATIVE); COLOR,URINE YELLOW; GLUCOSE, URINE NEGATIVE (NEGATIVE); KETONES,URINE NEGATIVE (NEGATIVE); LEUKOCYTE ESTERASE,URINE NEGATIVE (NEGATIVE); NITRITE,URINE NEGATIVE (NEGATIVE); PROTEIN,URINE NEGATIVE (NEGATIVE); URINE SPECIFIC GRAVITY 1.013; UROBILINOGEN,URINE NEGATIVE mg/dL (<2.0)
[2018-03-02 16:27] LABS: ABSOLUTE EOSINOPHILS # (AUTO) 0.1 10^3/uL (0.0-0.6); ABSOLUTE LYMPHOCYTES (AUTO) 1.6 10^3/uL (0.5-4.7); ABSOLUTE MONOCYTES (AUTO) 0.5 10^3/uL (0.1-1.4); ABSOLUTE NEUT (AUTO) 8.6 10^3/uL (1.7-8.2); BASOPHILS % (AUTO) 0.2 % (0-2); EOSINOPHILS % (AUTO) 0.6 % (0-6); HEMATOCRIT 28.4 % (36.0-47.0); HEMOGLOBIN 9.6 g/dL (12.0-15.5); MEAN CORPUSCULAR HEMOGLOBIN 28.6 pg (27.0-33.4); MEAN CORPUSCULAR HGB CONC 33.9 g/dL (32.0-36.0); MEAN CORPUSCULAR VOLUME 84 fl (80-97); MONOCYTES % (AUTO) 4.6 % (3-13); PLATELET COUNT 320 10^3/uL (150-450); RED BLOOD COUNT 3.37 10^6/uL (3.72-5.28); RED CELL DISTRIBUTION WIDTH 15.3 % (11.5-14.0); SEGMENTED NEUTROPHILS % (AUTO) 79.6 % (42-78); TOTAL CELLS COUNTED % (AUTO) 100 %; WHITE BLOOD COUNT 10.8 10^3/uL (4.0-10.5)
[2018-03-02 16:41] LABS: ALANINE AMINOTRANSFERASE 53 U/L (9-52); ALBUMIN 3.5 g/dL (3.5-5.0); ALKALINE PHOSPHATASE 86 U/L (38-126); ANION GAP 9 (5-19); ASPARTATE AMINO TRANSFERASE 35 U/L (14-36); BILIRUBIN,DIRECT 0.2 mg/dL (0.0-0.4); BILIRUBIN,TOTAL 0.3 mg/dL (0.2-1.3); BLOOD UREA NITROGEN 5 mg/dL (7-20); CALCIUM 9.2 mg/dL (8.4-10.2); CARBON DIOXIDE 24 mmol/L (22-30); CHLORIDE 109 mmol/L (98-107); GLUCOSE 78 mg/dL (75-110); LDH 459 U/L (313-618); POTASSIUM 3.7 mmol/L (3.6-5.0); SODIUM 142.2 mmol/L (137-145); TOTAL PROTEIN 6.6 g/dL (6.3-8.2); URIC ACID 3.6 mg/dL (2.5-6.2)
[2018-03-02 16:44] LABS: UR PRO/CREAT RATIO RESULT 0.3 mg/mg (0.0-0.2); URINE CREATININE 101.1 mg/dL (16-327)
[2018-03-02 19:44] LABS: URINE AMPHETAMINES SCREEN NEGATIVE; URINE BARBITURATES SCREEN NEGATIVE; URINE BENZODIAZEPINES SCREEN NEGATIVE; URINE COCAINE SCREEN NEGATIVE; URINE MARIJUANA (THC) SCREEN NEGATIVE; URINE METHADONE SCREEN NEGATIVE; URINE PHENCYCLIDINE SCREEN NEGATIVE
== END 2018-03-02 17:15 | disposition home or self-care (01) ==
LOC: LC 15:33
PROVIDERS: ATTEND Obstetrics & Gynecology
PROC: 4A1HXCZ Monitoring of Products of Conception, Cardiac Rate, External Approach (ICD-10-PCS; principal; 2018-03-02)
DX: O13.3 Gestational [pregnancy-induced] hypertension without significant proteinuria, third trimester (principal); Z3A.28 28 weeks gestation of pregnancy
CPT/HCPCS: 36415; 80053; 80307; 81001; 82570; 83615; 84156; 84550; 85025

== ENCOUNTER 2018-04-05 12:48 | Outpatient (CLI) | payer MEDICAID ==
[2018-04-05 13:36] LABS: APPEARANCE,URINE CLEAR; BILIRUBIN,URINE NEGATIVE (NEGATIVE); COLOR,URINE YELLOW; GLUCOSE, URINE NEGATIVE (NEGATIVE); KETONES,URINE NEGATIVE (NEGATIVE); LEUKOCYTE ESTERASE,URINE NEGATIVE (NEGATIVE); NITRITE,URINE NEGATIVE (NEGATIVE); PROTEIN,URINE NEGATIVE (NEGATIVE); UROBILINOGEN,URINE NEGATIVE mg/dL (<2.0)
[2018-04-05 13:56] LABS: URINE AMPHETAMINES SCREEN NEGATIVE; URINE BARBITURATES SCREEN NEGATIVE; URINE BENZODIAZEPINES SCREEN NEGATIVE; URINE COCAINE SCREEN NEGATIVE; URINE MARIJUANA (THC) SCREEN NEGATIVE; URINE METHADONE SCREEN NEGATIVE; URINE PHENCYCLIDINE SCREEN NEGATIVE
--- NOTE | 2018-04-05 15:16 | RADIOLOGY REPORT (SQ) ---
EXAM DESCRIPTION: U/S OB LIMITED COMPLETED DATE/TIME: 04/05/2018 2:59 pm REASON FOR STUDY: possible polyhydramnos at 33.3 weeks COMPARISON: None. TECHNIQUE: Limited transabdominal grayscale ultrasound for evaluation of specific requested obstetri tutu parameters. LIMITATIONS: None. FINDINGS: GANGA: 18 cm. FHR: 147 beats per minute. PRESENTATION: Cephalic. OTHER: Posterior placenta grade 2 IMPRESSION: Amniotic fluid index 18 cm, estimated gestational age today 33 weeks 0 days. This is wi thin normal limits. Trimester of : Third trimester - 28 weeks to delivery. TECHNICAL DOCUMENTATION: JOB ID: [id number] [employer]- All Rights Reserved Reading location - IP/workstation name: [email or web address]
--- NOTE | 2018-04-05 15:50 | Non Stress Test Report ---
Non Stress Test Datetime Report Generated by CPN: 04/05/2018 15:50 DEMOGRAPHIC EGA NST: 33.0 INDICATION Indication for Study: Polyhydramnios; Ordered by Provider VITAL SIGNS Temperature - NST: 98.8 Pulse - NST: 95 RESP - NST: 18 NBPSYS NST: 135 NBPDIA NST: 82 MONITORING Monitor Explained: Monitor Explained; Test Explained; Patient Verbalized Understanding Time on Monitor: 04/05/2018 13:03 Time off Monitor: 04/05/2018 13:26 NST Duration: 23 NST INTERVENTIONS NST Interventions: PO Hydration; Reposition Patient Physician Notified NST: J. Calzada CNM BABY A: [id number] BABY A Movement : Present Contraction Frequency : irritablity FHR Baseline : 125 Accelerations : 15X15 Decelerations : None Variability : Moderate 6-25bpm NST Review: Meets Criteria for Reactive NST NST Review and Verified By : Soha Herrera RN NST Results: Reactive NST REPORT Report Trigger: Send Report
== END 2018-04-05 15:27 | disposition home or self-care (01) ==
LOC: LC 12:48
PROVIDERS: ATTEND Obstetrics & Gynecology
PROC: 4A1HXCZ Monitoring of Products of Conception, Cardiac Rate, External Approach (ICD-10-PCS; principal; 2018-04-05)
DX: O40.3XX0 Polyhydramnios, third trimester, not applicable or unspecified (principal); Z3A.33 33 weeks gestation of pregnancy
CPT/HCPCS: 59025; 76815; 80307; 81005

== ENCOUNTER 2018-04-12 16:23 | Outpatient (CLI) | payer MEDICAID ==
[2018-04-12] MEDS ORDERED: NORMAL SALINE 1000 ML 1,000 ML IV ONE (17:07)
[2018-04-12 17:19] LABS: APPEARANCE,URINE CLEAR; BILIRUBIN,URINE NEGATIVE (NEGATIVE); COLOR,URINE STRAW; GLUCOSE, URINE NEGATIVE (NEGATIVE); KETONES,URINE NEGATIVE (NEGATIVE); LEUKOCYTE ESTERASE,URINE NEGATIVE (NEGATIVE); NITRITE,URINE NEGATIVE (NEGATIVE); PROTEIN,URINE NEGATIVE (NEGATIVE); URINE SPECIFIC GRAVITY 1.004; UROBILINOGEN,URINE NEGATIVE mg/dL (<2.0)
[2018-04-12 17:23] LABS: ABSOLUTE EOSINOPHILS # (AUTO) 0.1 10^3/uL (0.0-0.6); ABSOLUTE LYMPHOCYTES (AUTO) 1.6 10^3/uL (0.5-4.7); ABSOLUTE MONOCYTES (AUTO) 0.6 10^3/uL (0.1-1.4); ABSOLUTE NEUT (AUTO) 7.4 10^3/uL (1.7-8.2); BASOPHILS % (AUTO) 0.3 % (0-2); EOSINOPHILS % (AUTO) 0.7 % (0-6); HEMATOCRIT 27.2 % (36.0-47.0); HEMOGLOBIN 8.9 g/dL (12.0-15.5); LYMPHOCYTES % (AUTO) 16.9 % (13-45); MEAN CORPUSCULAR HEMOGLOBIN 26.9 pg (27.0-33.4); MEAN CORPUSCULAR HGB CONC 32.8 g/dL (32.0-36.0); MEAN CORPUSCULAR VOLUME 82 fl (80-97); PLATELET COUNT 255 10^3/uL (150-450); RED BLOOD COUNT 3.32 10^6/uL (3.72-5.28); RED CELL DISTRIBUTION WIDTH 16.8 % (11.5-14.0); SEGMENTED NEUTROPHILS % (AUTO) 76.1 % (42-78); TOTAL CELLS COUNTED % (AUTO) 100 %; WHITE BLOOD COUNT 9.7 10^3/uL (4.0-10.5)
[2018-04-12 17:43] LABS: UR PRO/CREAT RATIO RESULT 0.6 mg/mg (0.0-0.2); URINE CREATININE 30.8 mg/dL (16-327); URINE PROTEIN 18.9 mg/dL (<12)
[2018-04-12 17:47] LABS: URINE AMPHETAMINES SCREEN NEGATIVE; URINE BARBITURATES SCREEN NEGATIVE; URINE BENZODIAZEPINES SCREEN NEGATIVE; URINE COCAINE SCREEN NEGATIVE; URINE MARIJUANA (THC) SCREEN NEGATIVE; URINE METHADONE SCREEN NEGATIVE; URINE PHENCYCLIDINE SCREEN NEGATIVE
[2018-04-12 17:56] LABS: ALANINE AMINOTRANSFERASE 52 U/L (9-52); ALBUMIN 3.1 g/dL (3.5-5.0); ALKALINE PHOSPHATASE 96 U/L (38-126); ANION GAP 7 (5-19); ASPARTATE AMINO TRANSFERASE 42 U/L (14-36); BILIRUBIN,DIRECT 0.2 mg/dL (0.0-0.4); BILIRUBIN,TOTAL 0.4 mg/dL (0.2-1.3); BLOOD UREA NITROGEN 4 mg/dL (7-20); CALCIUM 8.4 mg/dL (8.4-10.2); CARBON DIOXIDE 25 mmol/L (22-30); CHLORIDE 110 mmol/L (98-107); GLUCOSE 78 mg/dL (75-110); POTASSIUM 3.7 mmol/L (3.6-5.0); SODIUM 142.2 mmol/L (137-145); TOTAL PROTEIN 6.1 g/dL (6.3-8.2); URIC ACID 3.7 mg/dL (2.5-6.2)
[2018-04-12] MEDS ORDERED: ACETAMINOPHEN 1,000 MG/100 ML RTUPB IV SCH (18:00)
== END 2018-04-12 18:33 | disposition home or self-care (01) ==
LOC: LC 16:23
PROVIDERS: ATTEND Obstetrics & Gynecology
PROC: 4A1HXCZ Monitoring of Products of Conception, Cardiac Rate, External Approach (ICD-10-PCS; principal; 2018-04-12)
DX: O13.3 Gestational [pregnancy-induced] hypertension without significant proteinuria, third trimester (principal); Z3A.34 34 weeks gestation of pregnancy
CPT/HCPCS: 36415; 59025; 80053; 80307; 81005; 82570; 83615; 84156; 84550; 85025

== ENCOUNTER 2018-04-13 17:07 | Outpatient (CLI) | payer MEDICAID ==
[2018-04-13 18:06] LABS: URINE CREATININE 21.5 mg/dL (16-327); URINE PROTEIN 17.1 mg/dL (<12)
[2018-04-13 18:10] LABS: 24 HOUR URINE PROTEIN RESULT 886 mg/day (42-225); 24 HR URINE CREAT RESULT 1.1 mg/day (0.8-2.0)
--- NOTE | 2018-04-13 18:13 | Non Stress Test Report ---
Non Stress Test Datetime Report Generated by CPN: 04/13/2018 18:13 DEMOGRAPHIC EGA NST: 34.1 EGA NST: 34.0 INDICATION Indication for Study: Ordered by Provider Indication for Study: Gestational Hypertension VITAL SIGNS Temperature - NST: 98.5 Pulse - NST: 96 RESP - NST: 18 NBPSYS NST: 124 NBPDIA NST: 71 MONITORING Monitor Explained: Monitor Explained; Test Explained; Patient Verbalized Understanding Monitor Explained: Monitor Explained; Test Explained; Patient Verbalized Understanding Time on Monitor: 04/13/2018 17:24 Time on Monitor: 04/12/2018 16:39 Time off Monitor: 04/13/2018 18:09 Time off Monitor: 04/12/2018 17:04 NST Duration: 45 NST Duration: 25 NST INTERVENTIONS NST Interventions: PO Hydration NST Interventions: PO Hydration Physician Notified NST: Mony Physician Notified NST: Dr Mcfarland BABY A: [id number] BABY A Movement : Present Movement : Present Contraction Frequency : 0 Contraction Frequency : irregular FHR Baseline : 120 FHR Baseline : 130 Accelerations : 15X15 Accelerations : 15X15 Decelerations : None Variability : Moderate 6-25bpm Variability : Moderate 6-25bpm NST Review: Meets Criteria for Reactive NST NST Review: Meets Criteria for Reactive NST NST Review and Verified By : Awilda Toledo RN NST Results: Reactive NST Results: Reactive NST REPORT Report Trigger: Send Report
== END 2018-04-13 19:09 | disposition home or self-care (01) ==
LOC: LC 17:07
PROVIDERS: ATTEND Obstetrics & Gynecology
PROC: 4A1HXCZ Monitoring of Products of Conception, Cardiac Rate, External Approach (ICD-10-PCS; principal; 2018-04-13)
DX: O13.3 Gestational [pregnancy-induced] hypertension without significant proteinuria, third trimester (principal); Z3A.34 34 weeks gestation of pregnancy
CPT/HCPCS: 59025; 82570; 84156

== ENCOUNTER 2018-04-15 18:25 | Outpatient (CLI) | payer MEDICAID ==
[2018-04-15 19:16] LABS: APPEARANCE,URINE CLEAR; BILIRUBIN,URINE NEGATIVE (NEGATIVE); COLOR,URINE STRAW; GLUCOSE, URINE NEGATIVE (NEGATIVE); KETONES,URINE 20 mg/dL (NEGATIVE); LEUKOCYTE ESTERASE,URINE NEGATIVE (NEGATIVE); NITRITE,URINE NEGATIVE (NEGATIVE); PROTEIN,URINE NEGATIVE (NEGATIVE); URINE SPECIFIC GRAVITY 1.006; UROBILINOGEN,URINE NEGATIVE mg/dL (<2.0)
[2018-04-15 19:32] LABS: URINE AMPHETAMINES SCREEN NEGATIVE; URINE BARBITURATES SCREEN NEGATIVE; URINE BENZODIAZEPINES SCREEN NEGATIVE; URINE COCAINE SCREEN NEGATIVE; URINE MARIJUANA (THC) SCREEN NEGATIVE; URINE METHADONE SCREEN NEGATIVE; URINE PHENCYCLIDINE SCREEN NEGATIVE
[2018-04-15 19:34] LABS: ABSOLUTE BASOPHILS # (AUTO) 0.1 10^3/uL (0.0-0.2); ABSOLUTE EOSINOPHILS # (AUTO) 0.1 10^3/uL (0.0-0.6); ABSOLUTE LYMPHOCYTES (AUTO) 1.8 10^3/uL (0.5-4.7); ABSOLUTE MONOCYTES (AUTO) 0.5 10^3/uL (0.1-1.4); ABSOLUTE NEUT (AUTO) 7.9 10^3/uL (1.7-8.2); BASOPHILS % (AUTO) 0.5 % (0-2); EOSINOPHILS % (AUTO) 0.6 % (0-6); HEMATOCRIT 26.4 % (36.0-47.0); HEMOGLOBIN 8.7 g/dL (12.0-15.5); LYMPHOCYTES % (AUTO) 17.2 % (13-45); MEAN CORPUSCULAR HEMOGLOBIN 26.6 pg (27.0-33.4); MEAN CORPUSCULAR VOLUME 81 fl (80-97); MONOCYTES % (AUTO) 5.2 % (3-13); PLATELET COUNT 264 10^3/uL (150-450); RED BLOOD COUNT 3.28 10^6/uL (3.72-5.28); RED CELL DISTRIBUTION WIDTH 16.9 % (11.5-14.0); SEGMENTED NEUTROPHILS % (AUTO) 76.5 % (42-78); TOTAL CELLS COUNTED % (AUTO) 100 %; WHITE BLOOD COUNT 10.4 10^3/uL (4.0-10.5)
[2018-04-15 19:39] LABS: UR PRO/CREAT RATIO RESULT 0.3 mg/mg (0.0-0.2); URINE CREATININE 53.8 mg/dL (16-327); URINE PROTEIN 18.1 mg/dL (<12)
[2018-04-15 19:57] LABS: ALANINE AMINOTRANSFERASE 54 U/L (9-52); ALKALINE PHOSPHATASE 98 U/L (38-126); ANION GAP 9 (5-19); ASPARTATE AMINO TRANSFERASE 41 U/L (14-36); BILIRUBIN,DIRECT 0.2 mg/dL (0.0-0.4); BILIRUBIN,TOTAL 0.6 mg/dL (0.2-1.3); BLOOD UREA NITROGEN 5 mg/dL (7-20); CALCIUM 8.7 mg/dL (8.4-10.2); CARBON DIOXIDE 22 mmol/L (22-30); CHLORIDE 109 mmol/L (98-107); GLUCOSE 84 mg/dL (75-110); POTASSIUM 3.2 mmol/L (3.6-5.0); SODIUM 139.9 mmol/L (137-145); TOTAL PROTEIN 5.8 g/dL (6.3-8.2)
[2018-04-15] MEDS ORDERED: RINGERS SOLUTION,LACTATED 500 ML IV PRN (20:10)
[2018-04-15] MEDS ORDERED: ACETAMINOPHEN 1,000 MG/100 ML RTUPB IV ONE (20:17)
[2018-04-15] MEDS ORDERED: RINGERS SOLUTION,LACTATED 1,000 ML IV PRN (20:45)
--- NOTE | 2018-04-15 21:51 | Non Stress Test Report ---
Non Stress Test Datetime Report Generated by CPN: 04/15/2018 21:51 DEMOGRAPHIC Test Number: 4 EGA NST: 34.3 INDICATION Indication for Study: Ordered by Provider MONITORING Monitor Explained: Monitor Explained; Test Explained; Patient Verbalized Understanding Time on Monitor: 04/15/2018 18:54 Time off Monitor: 04/15/2018 21:26 NST Duration: 152 NST INTERVENTIONS NST Interventions: PO Hydration; IV Fluids; Reposition Patient Physician Notified NST: DrFabricio Scar BABY A: [id number] BABY A Movement : Present Contraction Frequency : irritability FHR Baseline : 135 Accelerations : 15X15 Decelerations : None Variability : Moderate 6-25bpm NST Review: Meets Criteria for Reactive NST NST Review and Verified By : LEYLA Cartwright NSGabo Results: Reactive NST REPORT Report Trigger: Send Report
[2018-04-16] MEDS ORDERED: ACETAMINOPHEN 1,000 MG/100 ML RTUPB IV SCH
== END 2018-04-15 21:56 | disposition home or self-care (01) ==
LOC: LC 18:25
PROVIDERS: ATTEND Student in an Organized Health Care Education/Training Program
PROC: 4A1HXCZ Monitoring of Products of Conception, Cardiac Rate, External Approach (ICD-10-PCS; principal; 2018-04-15)
DX: O47.03 False labor before 37 completed weeks of gestation, third trimester (principal); Z3A.34 34 weeks gestation of pregnancy
CPT/HCPCS: 59025; 36415; 83615; 84156; 84550; 82570; 85025; 80053; 81001; 80307; J0131

== ENCOUNTER 2018-05-02 19:49 | Inpatient (IN) | payer MEDICAID ==
[2018-05-02] MEDS ORDERED: DINOPROSTONE 10 MG VAGINAL INSERT.SR PV PRN (20:08)
[2018-05-02] MEDS ORDERED: RINGERS SOLUTION,LACTATED 300 ML IV ONE (20:08)
[2018-05-02] MEDS ORDERED: MAG HYDROX/AL HYDROX/SIMETH SUSP 30 ML UDCUP PO PRN (20:10)
[2018-05-02 20:42] LABS: APPEARANCE,URINE SLIGHTLY-CLOUDY; BILIRUBIN,URINE NEGATIVE (NEGATIVE); COLOR,URINE YELLOW; GLUCOSE, URINE NEGATIVE (NEGATIVE); KETONES,URINE NEGATIVE (NEGATIVE); LEUKOCYTE ESTERASE,URINE NEGATIVE (NEGATIVE); NITRITE,URINE NEGATIVE (NEGATIVE); PROTEIN,URINE NEGATIVE (NEGATIVE); URINE AMPHETAMINES SCREEN NEGATIVE; URINE BARBITURATES SCREEN NEGATIVE; URINE BENZODIAZEPINES SCREEN NEGATIVE; URINE COCAINE SCREEN NEGATIVE; URINE MARIJUANA (THC) SCREEN NEGATIVE; URINE METHADONE SCREEN NEGATIVE; URINE PHENCYCLIDINE SCREEN NEGATIVE; URINE SPECIFIC GRAVITY 1.008
[2018-05-02] MEDS: RINGERS SOLUTION,LACTATED 1,000 ML IV PRN ×2 (20:43→22:39)
[2018-05-02 20:44] LABS: ABSOLUTE LYMPHOCYTES (AUTO) 1.8 10^3/uL (0.5-4.7); ABSOLUTE MONOCYTES (AUTO) 0.4 10^3/uL (0.1-1.4); ABSOLUTE NEUT (AUTO) 6.5 10^3/uL (1.7-8.2); BASOPHILS % (AUTO) 0.4 % (0-2); EOSINOPHILS % (AUTO) 0.5 % (0-6); HEMATOCRIT 26.9 % (36.0-47.0); HEMOGLOBIN 8.8 g/dL (12.0-15.5); LYMPHOCYTES % (AUTO) 20.2 % (13-45); MEAN CORPUSCULAR HEMOGLOBIN 25.4 pg (27.0-33.4); MEAN CORPUSCULAR HGB CONC 32.7 g/dL (32.0-36.0); MEAN CORPUSCULAR VOLUME 78 fl (80-97); MONOCYTES % (AUTO) 4.8 % (3-13); PLATELET COUNT 292 10^3/uL (150-450); RED BLOOD COUNT 3.46 10^6/uL (3.72-5.28); RED CELL DISTRIBUTION WIDTH 17.3 % (11.5-14.0); SEGMENTED NEUTROPHILS % (AUTO) 74.1 % (42-78); TOTAL CELLS COUNTED % (AUTO) 100 %; WHITE BLOOD COUNT 8.8 10^3/uL (4.0-10.5)
[2018-05-02] MEDS ORDERED: DINOPROSTONE 10 MG VAGINAL INSERT.SR ONE (20:56)
[2018-05-02 21:01] LABS: ALANINE AMINOTRANSFERASE 72 U/L (9-52); ALKALINE PHOSPHATASE 121 U/L (38-126); ANION GAP 13 (5-19); ASPARTATE AMINO TRANSFERASE 74 U/L (14-36); BILIRUBIN,DIRECT 0.3 mg/dL (0.0-0.4); BILIRUBIN,TOTAL 0.5 mg/dL (0.2-1.3); BLOOD UREA NITROGEN 3 mg/dL (7-20); CALCIUM 8.6 mg/dL (8.4-10.2); CARBON DIOXIDE 22 mmol/L (22-30); CHLORIDE 106 mmol/L (98-107); GLUCOSE 113 mg/dL (75-110); POTASSIUM 3.1 mmol/L (3.6-5.0); SODIUM 140.6 mmol/L (137-145); TOTAL PROTEIN 5.9 g/dL (6.3-8.2); URIC ACID 4.1 mg/dL (2.5-6.2)
[2018-05-02 21:23] LABS: UR PRO/CREAT RATIO RESULT 0.3 mg/mg (0.0-0.2); URINE CREATININE 72.7 mg/dL (16-327); URINE PROTEIN 23.5 mg/dL (<12)
[2018-05-02] MEDS ORDERED: LABETALOL HCL 200 MG TABLET ONE (22:01)
[2018-05-02] MEDS ORDERED: LABETALOL HCL 200 MG TABLET PO ONE (22:30)
[2018-05-02] MEDS ORDERED: HYDRALAZINE HCL INJ/PF 20 MG/1 ML SDV IV ONE (23:01)
[2018-05-02] MEDS ORDERED: HYDRALAZINE HCL INJ/PF 20 MG/1 ML SDV ONE (23:02)
[2018-05-02] MEDS ORDERED: ZOLPIDEM TARTRATE 5 MG TABLET ONE (23:29)
[2018-05-02] MEDS: ZOLPIDEM TARTRATE 5 MG TABLET PO SCH (23:29)
[2018-05-03] MEDS ORDERED: ACETAMINOPHEN 325 MG TABLET ONE ×3 (01:13→17:04)
[2018-05-03] MEDS: ACETAMINOPHEN 325 MG TABLET PO PRN ×2 (01:14→06:19)
[2018-05-03] MEDS ORDERED: HYDRALAZINE HCL INJ/PF 20 MG/1 ML SDV IV PRN ×2 (02:05→02:50)
[2018-05-03] MEDS ORDERED: HYDRALAZINE HCL INJ/PF 20 MG/1 ML SDV ONE ×3 (02:11→21:45)
[2018-05-03] MEDS: RINGERS SOLUTION,LACTATED 1,000 ML IV PRN ×3 (05:25→20:44)
[2018-05-03] MEDS: HYDRALAZINE HCL INJ/PF 20 MG/1 ML SDV IV PRN ×2 (06:35→21:49)
[2018-05-03] MEDS ORDERED: ONDANSETRON 4 MG TAB.RAPDIS ONE (06:58)
[2018-05-03] MEDS ORDERED: ONDANSETRON 4 MG TAB.RAPDIS PO ONE (06:59)
[2018-05-03 08:06] LABS: ABSOLUTE BASOPHILS # (AUTO) 0.1 10^3/uL (0.0-0.2); ABSOLUTE LYMPHOCYTES (AUTO) 1.6 10^3/uL (0.5-4.7); ABSOLUTE MONOCYTES (AUTO) 0.5 10^3/uL (0.1-1.4); BASOPHILS % (AUTO) 0.6 % (0-2); EOSINOPHILS % (AUTO) 0.4 % (0-6); HEMATOCRIT 28.2 % (36.0-47.0); HEMOGLOBIN 9.1 g/dL (12.0-15.5); LYMPHOCYTES % (AUTO) 15.5 % (13-45); MEAN CORPUSCULAR HEMOGLOBIN 25.5 pg (27.0-33.4); MEAN CORPUSCULAR HGB CONC 32.3 g/dL (32.0-36.0); MEAN CORPUSCULAR VOLUME 79 fl (80-97); MONOCYTES % (AUTO) 5.3 % (3-13); PLATELET COUNT 284 10^3/uL (150-450); RED BLOOD COUNT 3.58 10^6/uL (3.72-5.28); RED CELL DISTRIBUTION WIDTH 17.2 % (11.5-14.0); SEGMENTED NEUTROPHILS % (AUTO) 78.2 % (42-78); TOTAL CELLS COUNTED % (AUTO) 100 %; WHITE BLOOD COUNT 10.3 10^3/uL (4.0-10.5)
[2018-05-03 08:27] LABS: BLOOD UREA NITROGEN 2 mg/dL (7-20); CALCIUM 8.5 mg/dL (8.4-10.2); CARBON DIOXIDE 22 mmol/L (22-30); CHLORIDE 108 mmol/L (98-107); GLUCOSE 86 mg/dL (75-110); POTASSIUM 3.3 mmol/L (3.6-5.0); SODIUM 139.4 mmol/L (137-145)
[2018-05-03 08:28] LABS: ALANINE AMINOTRANSFERASE 75 U/L (9-52); ALBUMIN 3.1 g/dL (3.5-5.0); ALKALINE PHOSPHATASE 122 U/L (38-126); ANION GAP 9 (5-19); ASPARTATE AMINO TRANSFERASE 72 U/L (14-36); BILIRUBIN,DIRECT 0.3 mg/dL (0.0-0.4); BILIRUBIN,TOTAL 0.6 mg/dL (0.2-1.3); TOTAL PROTEIN 6.1 g/dL (6.3-8.2)
[2018-05-03] MEDS ORDERED: MAGNESIUM SULFATE 20 GM/500 ML RTUINJ IV PRN (08:34)
[2018-05-03] MEDS ORDERED: MAGNESIUM SULFATE 4 GM/100 ML RTUPB IV ONE (08:49)
[2018-05-03] MEDS ORDERED: MAGNESIUM SULFATE 20 GM/500 ML RTUINJ IV ONE (08:49)
--- NOTE | 2018-05-03 09:02 | Admission Physical ---
Datetime Report Generated by CPN: 05/03/2018 09:01 CURRENT ADMISSION Chief Complaint: Signs/Symptoms Gestational HTN; Scheduled Induction of Labor Indication for Induction: Chronic Primary/Essential HTN; PreEclampsia Admit Impression : Term, Intrauterine ; No Active Labor; Intact Membranes; Induction of Labor Admit Plan: Admit to Unit; Initiate Labor Induction Protocol ALLERGIES Medication Allergies: No Medication Allergies: No Known Allergies (05/02/2018) Latex: No Latex Allergies Food Allergies: N/A OBSTETRICAL HISTORY EDC: 05/21/2018 00:00 : 6 Para: 3 Term: 3 : 0 SAB: 1 IAB: 1 Ectopic: 0 Livin Cesareans: 0 VBACs: 0 Multiple Births: 0 Gestational Diabetes: No Rh Sensitization: No Incompetent Cervix: No SHALINI: No Infertility: No ART Treatment: No Uterine Anomaly: No IUGR: No Hx Previous C/S: No Macrosomia: No Hx Loss/Stillborn: No PIH: Yes Hx : No Placenta Previa/Abruption: No Depression/PP Depression: Yes PTL/PROM: No Post Hemorrhage: No Current Procedures: Ultrasound; NST Obstetrical History Comments: G1 - 2008, SAB G2 - 2009, , Girl 38 weeks G3 - 2013, , Girl 39 weeks G4 - 2017, , Boy 39 weeks G5 - 2017, SAB G6 - Current SEE RECORDS Alcohol: No Marijuana : No Cocaine: No Other Illicit Drugs: No Cigarettes: Former Smoker. [id number] MEDICAL HISTORY Diabetes: No Blood Transfusion: No Pulmonary Disease (Asthma, TB): No Breast Disease: No Hypertension: Yes Qc Scientist Surgery: No Heart Disease: No Hosp/Surgery: Yes Autoimmune Disorder: No Anesthetic Complications: No Kidney Disease: No Abnormal Pap Smear: No Neuro/Epilepsy: No Psychiatric Disorders: Yes Other Medical Diseases: No Hepatitis/Liver Disease: No Significant Family History: No Varicosities/Phlebitis: No Trauma/Violence : No Thyroid Dysfunction: No Medical History Comments: Anxiety, OCD, PPD, GHTN, gallbladder removed 2017 INFECTIOUS HISTORY Gonorrhea: No Genital Herpes: No Chlamydia: No Tuberculosis: No Syphilis: No Hepatitis: No HIV/AIDS Exposure: No Rash or Viral Illness: No HPV: No PHYSICAL EXAM General: Normal HEENT: Normal Neurologic: Normal Thyroid: Deferred Heart: Normal Lungs: Normal Breast: Normal Back: Normal Abdomen: Deferred Genitourinary Exam: Normal Extremities: Normal DTRs: Normal Pelvic Type: Adequate Vital Signs: Reviewed VAGINAL EXAM Dilatation: 1 Effacement: 50 Station: -3 Contraction Comments: q 2-3 MEMBRANES Membranes: Intact FETUS A EGA: 37.3 Monitoring: External US FHR- Baseline: 160 Variability: Moderate 6-25bpm Accelerations: 15X15 Decelerations: None Presentation: Vertex Admit Comment: 33yo at 37+3ega presents for IOL due to CHTN with superimposed PreE. H/o PreE x 2. IOL begun last evening due to CHTN with superimpsoed PreE. Cervidil removed this am and cvx soft but unchanged. Plan for Magnesium sulfate for Seizure Prophylaxis. Pitocin and Cooks Catheter for IOL. Anticipate . Labetolol 200mg po BID rx and will continue after delivery. 24 hr UTP 886mg. +afp - Informaseq negativbe. Obesity. Pelvis proven to 8#13oz PLANS FOR LABOR AND DELIVERY Labor and Delivery: None Pain Management: Epidural Feeding Preference: Formula Benefit of Breast Feed Discussed: Yes Circumcision: Yes INFORMED CONSENT Informed Consent Obtained: Vaginal Delivery; Induction of Labor; Risks, Benefits and Alternatives Discussed Signature: with User ID: [email or web address]
[2018-05-03] MEDS ORDERED: OXYTOCIN/NORMAL SALINE 20 UNIT/1,000 ML RTUINJ ONE (09:22)
[2018-05-03] MEDS ORDERED: LABETALOL HCL 200 MG TABLET ONE ×2 (09:29→21:46)
[2018-05-03] MEDS ORDERED: OXYTOCIN/NORMAL SALINE 20 UNIT/1,000 ML RTUINJ IV PRN ×2 (09:30→18:00)
[2018-05-03] MEDS: LABETALOL HCL 200 MG TABLET PO SCH ×2 (09:39→21:48)
[2018-05-03] MEDS ORDERED: LABETALOL HCL 200 MG TABLET PO SCH (10:00)
[2018-05-03] MEDS: MAGNESIUM SULFATE 20 GM/500 ML RTUINJ IV PRN (10:47)
--- NOTE | 2018-05-03 11:14 | L&D Progress Notes ---
PROGRESS NOTES Datetime Report Generated by CPN: 05/03/2018 11:14 PROGRESS NOTE Impression: Reassuring Heart Rate Impression Other: SI Pre-Eclampsia Plan: Continue Present Management; Induction; Cervical Ripening Plan Other: Pt on Magnessium Sulfate Informed Consent Obtained: Vaginal Delivery Informed Consent Obtained: Vaginal Delivery; Induction of Labor; Risks, Benefits and Alternatives Discussed Vital Signs : Reviewed Comment: IOL due to SI Pre-eclampsia, Pitocin infusing, plan to place a Cook's cath as well. Pt states her headache is starting to return. Magnessium Sulfate started Dr Abbott is the Attending MD, aware of pt status and agrees with plan of care VAGINAL EXAM Dilatation: 1 Effacement: 50 Station: -3 Contractions: q 2-3 MEMBRANES Membranes: Intact Membranes: Intact FETUS A FHR - Baseline: 135 Monitoring: External US Variability: Moderate 6-25bpm Accelerations: 15X15 FHR Category: Category I Presentation: Vertex SIGNATURE SIGNATURE: [id number];[id number];13,[id number] SIGNATURE: [id number];14,[id number] SIGNATURE: 14,[id number] SIGNATURE: 14,[id number] SIGNATURE: 14,[id number] Assignment: Carolina Abbott MD Signature: with User ID: [email or web address] : with User ID: [email or web address]
[2018-05-03] MEDS ORDERED: NALBUPHINE HCL INJ 10 MG/1 ML AMPULE INJ ONE (12:38)
[2018-05-03] MEDS ORDERED: NALBUPHINE HCL INJ 10 MG/1 ML AMPULE ONE (12:39)
[2018-05-03] MEDS: BUSPIRONE HCL 10 MG TABLET PO SCH (13:02)
--- NOTE | 2018-05-03 13:15 | L&D Progress Notes ---
PROGRESS NOTES Datetime Report Generated by CPN: 05/03/2018 13:15 PROGRESS NOTE Impression: Reassuring Heart Rate Procedures: Sterile Vag Exam Plan: Continue Present Management; Induction Plan Other: Continue Magnessium Sulfate Informed Consent Obtained: Vaginal Delivery Vital Signs : Reviewed Comment: IOL for SI Pre-eclampsia, pt becoming uncomfortable with the contractions, planning on an epidural, s/p IV pain medication. Pitocin infusing. Plan AROM once the epidural is in place. Dr Abbott is aware of pt status and plan of care VAGINAL EXAM Dilatation: 4 Effacement: 50 Station: -3 Contractions: q1-2 MEMBRANES Membranes: Intact FETUS A Accelerations: 15X15 FHR Category: Category I FETUS C SIGNATURE: [id number];[id number];10,[id number] Assignment: Carolina Abbott MD Signature: with User ID: [email or web address] : with User ID: [email or web address]
[2018-05-03] MEDS ORDERED: EPHEDRINE SULFATE INJ 50 MG/1 ML AMPULE ONE (13:38)
[2018-05-03] MEDS ORDERED: FENTANYL/BUPIVACAINE/NS/PF 300 MCG/150 ML RTUINJ EPI ONE (13:38)
[2018-05-03] MEDS ORDERED: BUPIVACAINE HCL 0.25 % INJ/PF (2.5 MG/1 ML) 30 ML VIAL ONE (13:39)
--- NOTE | 2018-05-03 15:32 | L&D Progress Notes ---
PROGRESS NOTES Datetime Report Generated by CPN: 05/03/2018 15:31 PROGRESS NOTE Impression: Normal Progression of Labor; Reassuring Heart Rate Impression Other: IOl for SI pre-eclampsia Procedures: Artificial ROM; Sterile Vag Exam Plan: Augmentation Informed Consent Obtained: Vaginal Delivery Vital Signs : Reviewed Comment: Pt now comfortable with the epidural. States h/a is now gone. Pitocin infusing, AROM at 1524, bloodtinged fluid Dr Abbott aware of pt status VAGINAL EXAM Dilatation: 5 Effacement: 70 Station: -3 Contractions: q1-2min MEMBRANES Membranes: Ruptured Amniotic Fluid Color: Bloody FETUS A FHR - Baseline: 125 Monitoring: External US Variability: Moderate 6-25bpm Accelerations: 15X15 Decelerations: None FHR Category: Category I FETUS C SIGNATURE: [id number];14,[id number];13,[id number] Assignment: Carolina Abbott MD Signature: with User ID: [email or web address] : with User ID: [email or web address]
--- NOTE | 2018-05-03 17:01 | L&D Progress Notes ---
PROGRESS NOTES Datetime Report Generated by CPN: 05/03/2018 17:01 PROGRESS NOTE Impression: Reassuring Heart Rate Impression Other: SI Pre-eclampsia Procedures: Sterile Vag Exam; Epidural Placement Plan: Continue Present Management; Induction Informed Consent Obtained: Vaginal Delivery Vital Signs : Reviewed; Within Normal Limits Comment: Pt feeling some pain on her Rt side, epidural in place, will change positions. Pt denies headache, denies strong rectal pressure currently. Pitocin at 10 mu/min Dr Abbott updated to pts status. Anticipate VAGINAL EXAM Dilatation: 8 Effacement: 80 Station: -2 Contractions: q1-2 MEMBRANES Membranes: Ruptured Amniotic Fluid Color: Bloody FETUS A FHR - Baseline: 130 Monitoring: External US Variability: Moderate 6-25bpm Accelerations: 15X15 Decelerations: None FETUS C SIGNATURE: [id number];14,[id number];10,[id number] Assignment: Carolina Abbott MD Signature: with User ID: [email or web address] : with User ID: [email or web address]
[2018-05-03] MEDS ORDERED: PROMETHAZINE HCL 25 MG SUPP.RECT PR PRN (18:00)
[2018-05-03] MEDS ORDERED: DIPHENHYDRAMINE HCL 25 MG CAPSULE PO PRN (18:00)
[2018-05-03] MEDS ORDERED: ACETAMINOPHEN WITH CODEINE #3 TABLET PO PRN ×2 (18:00)
[2018-05-03] MEDS ORDERED: DIPH/PERTUSS(ACELL)/TETANUS VAC/PF 0.5 ML SYR (>=10YO) IM PRN (18:00)
[2018-05-03] MEDS ORDERED: ACETAMINOPHEN 650 MG SUPP.RECT PR PRN (18:00)
[2018-05-03] MEDS ORDERED: MEASLES,MUMPS&RUBELLA VACC/PF 0.5 ML VIAL SUBCUT PRN (18:00)
[2018-05-03] MEDS ORDERED: DIBUCAINE 1% OINTMENT 28 GM TP PRN (18:00)
[2018-05-03] MEDS ORDERED: NA PHOS,M-B/NA PHOS,DI-BA (ADULT) 133 ML ENEMA PR PRN (18:00)
[2018-05-03] MEDS ORDERED: GLYCERIN/WITCH HAZEL LEAF 1 EACH MED..PAD TP PRN (18:00)
[2018-05-03] MEDS ORDERED: PSEUDOEPHEDRINE HCL 30 MG TABLET PO PRN (18:00)
[2018-05-03] MEDS ORDERED: PROMETHAZINE HCL INJ 25 MG/1 ML VIAL IV PRN (18:00)
[2018-05-03] MEDS ORDERED: ZOLPIDEM TARTRATE 5 MG TABLET PO PRN (18:00)
[2018-05-03] MEDS ORDERED: BENZOCAINE/MENTHOL AEROSOL SPRAY 56 ML TOP PRN (18:00)
[2018-05-03] MEDS ORDERED: MAGNESIUM HYDROXIDE SUSP 30 ML UDCUP PO PRN (18:00)
[2018-05-03] MEDS ORDERED: PROMETHAZINE HCL 25 MG TABLET PO PRN (18:00)
[2018-05-03] MEDS ORDERED: FAMOTIDINE 20 MG TABLET ONE (21:45)
[2018-05-03] MEDS ORDERED: DOCUSATE SODIUM 100 MG CAPSULE ONE (21:45)
[2018-05-03] MEDS ORDERED: FERROUS SULFATE 325 MG TABLET PO ONE (21:46)
[2018-05-03] MEDS ORDERED: IBUPROFEN 800 MG TABLET ONE (21:46)
[2018-05-03] MEDS: IBUPROFEN 800 MG TABLET PO SCH (21:47)
[2018-05-03] MEDS: FAMOTIDINE 20 MG TABLET PO SCH (21:49)
[2018-05-03] MEDS: FERROUS SULFATE 325 MG TABLET PO SCH (21:49)
[2018-05-03] MEDS: DOCUSATE SODIUM 100 MG CAPSULE PO SCH (21:49)
[2018-05-03] MEDS ORDERED: ZOLPIDEM TARTRATE 5 MG TABLET ONE (23:01)
[2018-05-03] MEDS: ZOLPIDEM TARTRATE 5 MG TABLET PO SCH (23:02)
--- NOTE | 2018-05-03 23:11 | Warning Signs in Babies ---
VOD Warning Signs Datetime Report Generated by [facility]: 05/03/2018 23:11 VOD#608 -Warning Signs in Babies: Needs to be viewed. (03/18/2018 17:36:Verona Arredondo RN)
--- NOTE | 2018-05-03 23:12 | Delivery Summary ---
Del Sum A-C Datetime Report Generated by CPN: 05/03/2018 23:12 DELIVERY PERSONNEL DELIVERY PERSONNEL: [id number] Delivery Doctor:: Carolina Abbott MD Anesthesiologist:: Demario Jeffrey MD Labor and Delivery Nurse:: Tamia New RNforging operator Nurse:: LEYLA Osullivan Nursery Nurse:: LEYLA Osullivan MATERNAL INFORMATION Delivery Anesthesia: Epidural Medications After Delivery: Pitocin Drip 20 Units/1000ml NSS Maternal Complications: Other Complication Details: preeclampsia Provider Comments: VMI delivered in Direct OA presenation. Loose nuchal cord easily reduced. Shoulders and body delivered without difficulty. Cord doubly clamped and cut. Infant to maternal abd for NRP. Placenta delivered intact spontaneously. FF at U. Good hemostasis. No perineal lacerations. Mother and baby stable upon provider leaving the room. Continue magnesium pp. LABOR SUMMARY EDC: 05/21/2018 00:00 No. Babies in Womb: 1 Attempted: No Labor Anesthesia: Epidural LABOR INFORMATION Reason for Induction: Pre-Eclampsia Onset of Labor: 05/03/2018 15:24 Complete Dilatation: 05/03/2018 17:45 Cervical Ripening Agents: Cervidil Oxytocin: Induction Group B Beta Strep: Negative Antibiotics # of Doses: 0 Antibiotics Time of Last Dose: n/a Steroids Given: None Reason Steroids Not Administered: Not Applicable MEMBRANES Membranes Rupture Method: Artificial Rupture of Membranes: 05/03/2018 15:24 Length of Rupture (hr): 2.42 Amniotic Fluid Color: Clear Amniotic Fluid Amount: Scant Amniotic Fluid Odor: Normal STAGES OF LABOR Stage 1 hr: 2 Stage 1 min: 21 Stage 2 hr: 0 Stage 2 min: 4 Stage 3 hr: 0 Stage 3 min: 2 Total Time in Labor hr: 2 Total Time in Labor min: 27 VAGINAL DELIVERY Episiotomy: None Laceration #1: None Laceration Extension #1: N/A Laceration Repair: Not Applicable Sharps Count Correct: N/A BABY A INFORMATION Infant Delivery Date/Time: 05/03/2018 17:49 Method of Delivery: Vaginal Born in Route : No : N/A Forceps: N/A Vacuum Extraction: N/A Shoulder Dystocia : No PRESENTATION/POSITION BABY A Presentation: Cephalic Cephalic Presentation: Vertex Vertex Position: Left Occipital Anterior Breech Presentation: N/A PLACENTA INFORMATION BABY A Placenta Delivery Time : 05/03/2018 17:51 Placenta Method of Delivery: Spontaneous Placenta Status: Delivered SCORES BABY A Heart Rate 1 min: >100 bpm Resp Effort 1 min: Good Cry Reflex Irritability 1 min: Cough or Sneeze or Pulls Away Muscle Tone 1 min: Some Flexion of Extremities Color 1 min: Body [place], Extremities Blue Resuscitation Effort 1 min: Tactile Stimulation SCORE 1 MIN: 8 Heart Rate 5 min: >100 bpm Resp Effort 5 min: Good Cry Reflex Irritability 5 min: Cough or Sneeze or Pulls Away Muscle Tone 5 min: Some Flexion of Extremities Color 5 min: Body [place], Extremities Blue Resuscitation Effort 5 min: Tactile Stimulation SCORE 5 MIN: 8 INFORMATION BABY A Gestational Age at Delivery: 37.3 Gestational Status: Early Term- 37- 38.6 Weeks Outcome : Liveborn Infant Condition : Stable Infant Sex: Male IDENTIFICATION BABY A Infant Verification Date/Time: 05/03/2018 18:51 ID Band Number: [id number] Mother's Name Verified: Yes Infant RN Verifying Infant: Nicole New RN Additional Verifying Personnel: Landon Michael, SUPERVISOR NURSE WEIGHT/LENGTH BABY A Infant Birthweight (gm): 3940 Weight (lb): 8 Weight (oz): 11 Length (in): 20.00 Infant Length (cm): 50.80 CORD INFORMATION BABY A No. Cord Vessels: 3 Nuchal Cord : Around Neck x1, Loose Cord Blood Taken: Yes-For Storage (Mom's Blood type +) Suction: None ASSESSMENT BABY A Skin to Skin: Yes BABY B INFORMATION : N/A SIGNATURES Signature: with User ID: [email or web address]
[2018-05-04] MEDS ORDERED: HYDRALAZINE HCL INJ/PF 20 MG/1 ML SDV ONE ×2 (02:21→03:54)
[2018-05-04] MEDS: HYDRALAZINE HCL INJ/PF 20 MG/1 ML SDV IV PRN (02:39)
[2018-05-04] MEDS ORDERED: MAGNESIUM SULFATE 20 GM/500 ML RTUINJ IV ONE (03:58)
[2018-05-04] MEDS: MAGNESIUM SULFATE 20 GM/500 ML RTUINJ IV PRN (04:01)
[2018-05-04] MEDS: RINGERS SOLUTION,LACTATED 1,000 ML IV PRN (04:01)
[2018-05-04] MEDS ORDERED: HYDRALAZINE HCL INJ/PF 20 MG/1 ML SDV IV ONE (05:15)
[2018-05-04] MEDS ORDERED: LABETALOL HCL 200 MG TABLET PO SCH (06:00)
[2018-05-04] MEDS ORDERED: IBUPROFEN 800 MG TABLET ONE (06:05)
[2018-05-04] MEDS ORDERED: LABETALOL HCL 200 MG TABLET ONE (06:05)
[2018-05-04] MEDS: LABETALOL HCL 200 MG TABLET PO SCH ×3 (06:06→22:24)
[2018-05-04] MEDS: IBUPROFEN 800 MG TABLET PO SCH ×3 (06:06→22:23)
--- NOTE | 2018-05-04 07:02 | L&D Progress Notes ---
PROGRESS NOTES Datetime Report Generated by CPN: 05/04/2018 07:02 PROGRESS NOTE Informed Consent Obtained: Risks, Benefits and Alternatives Discussed Comment: Intermittent severe range BPs with requirement for IV meds intermittently. Pt has already been on magnesium for 12 hours and is diuresing well. However with continued elevated BPs will continue to monitor for now. Re-eval need for mag sulfate at noon - may be able to discontinue at that time. Labetolol increased to 200mg po TID. Continue to monitor. FETUS C SIGNATURE: [id number];14,[id number];13,[id number];15,[id number];27,[id number] SIGNATURE: 15,[id number];13,4873011075;14,9961415274;10,1076726863;27,[id number] SIGNATURE: 10,[id number];14,[id number];13,[id number];27,[id number] Signature: with User ID: [email or web address]
[2018-05-04 07:30] LABS: HEMATOCRIT 26.3 % (36.0-47.0); HEMOGLOBIN 8.5 g/dL (12.0-15.5); MEAN CORPUSCULAR HEMOGLOBIN 25.4 pg (27.0-33.4); MEAN CORPUSCULAR HGB CONC 32.5 g/dL (32.0-36.0); MEAN CORPUSCULAR VOLUME 78 fl (80-97); PLATELET COUNT 282 10^3/uL (150-450); RED BLOOD COUNT 3.37 10^6/uL (3.72-5.28); RED CELL DISTRIBUTION WIDTH 17.3 % (11.5-14.0); WHITE BLOOD COUNT 11.7 10^3/uL (4.0-10.5)
[2018-05-04] MEDS ORDERED: PRENATAL VITAMIN W DHA CAPSULE PO ONE (09:19)
[2018-05-04] MEDS ORDERED: DOCUSATE SODIUM 100 MG CAPSULE ONE (09:20)
[2018-05-04] MEDS ORDERED: FAMOTIDINE 20 MG TABLET ONE (09:20)
[2018-05-04] MEDS ORDERED: ACETAMINOPHEN 325 MG TABLET ONE (09:20)
[2018-05-04] MEDS ORDERED: SENNOSIDES/DOCUSATE 8.6-50 MG 1 EACH TABLET ONE (09:20)
[2018-05-04] MEDS ORDERED: FERROUS SULFATE 325 MG TABLET PO ONE (09:20)
[2018-05-04] MEDS: DOCUSATE SODIUM 100 MG CAPSULE PO SCH ×2 (09:26→19:05)
[2018-05-04] MEDS: SENNOSIDES/DOCUSATE 8.6-50 MG 1 EACH TABLET PO SCH (09:26)
[2018-05-04] MEDS: PRENATAL VITAMIN W DHA CAPSULE PO SCH (09:26)
[2018-05-04] MEDS: FAMOTIDINE 20 MG TABLET PO SCH ×2 (09:27→22:23)
[2018-05-04] MEDS: ACETAMINOPHEN 325 MG TABLET PO PRN (09:27)
[2018-05-04] MEDS: FERROUS SULFATE 325 MG TABLET PO SCH ×2 (09:27→19:05)
[2018-05-04] MEDS: BUSPIRONE HCL 10 MG TABLET PO SCH ×3 (10:06→19:04)
[2018-05-04] MEDS: ZOLPIDEM TARTRATE 5 MG TABLET PO SCH (22:23)
[2018-05-05] MEDS: LABETALOL HCL 200 MG TABLET PO SCH ×3 (05:55→21:29)
[2018-05-05] MEDS: IBUPROFEN 800 MG TABLET PO SCH ×3 (05:55→21:29)
[2018-05-05] MEDS: PRENATAL VITAMIN W DHA CAPSULE PO SCH (10:15)
[2018-05-05] MEDS: FAMOTIDINE 20 MG TABLET PO SCH ×2 (10:16→21:28)
[2018-05-05] MEDS: FERROUS SULFATE 325 MG TABLET PO SCH ×2 (10:16→17:51)
[2018-05-05] MEDS: BUSPIRONE HCL 10 MG TABLET PO SCH ×2 (10:16→17:51)
[2018-05-05] MEDS: SENNOSIDES/DOCUSATE 8.6-50 MG 1 EACH TABLET PO SCH (10:16)
[2018-05-05] MEDS: DOCUSATE SODIUM 100 MG CAPSULE PO SCH ×2 (10:16→17:52)
--- NOTE | 2018-05-05 11:11 | PDOC PROGRESS REPORT ---
Subjective-OB Progress Note for:: 05/05/18 Subjective: Pt doing well, no concerns. She reports light bleeding, reg diet and voiding without difficulty. Denies h/a, vision changes, feeling well today. Physical Exam (OB) Vital Signs: Temp Pulse Resp BP Pulse Ox 98.1 F 96 20 159/93 H 97 05/05/18 08:12 05/05/18 08:12 05/05/18 08:12 05/05/18 08:12 05/05/18 08:12 Intake & Output 05/04/18 05/05/18 05/06/18 06:59 06:59 06:59 Intake Total 3124 128 Balance 3124 128 - PIH/Pre-Eclampsia Headache: Absent Epigastric Pain: No Visual Changes: Yes - Lochia Lochia Amount: Scant < 10 ml Lochia Color: Rubra/Red - Abdomen Description: Soft, Round Hernia Present: No Fundal Description: Firm, Midline Fundal Height: u/u - u/2 Assessment and Plan(PN) - Assessment and Plan (1) Vaginal delivery Is this a current diagnosis for this admission?: Yes (2) Chronic hypertension with superimposed preeclampsia Is this a current diagnosis for this admission?: Yes (3) Anemia Qualifiers: Anemia type: unspecified type Qualified Code(s): D64.9 - Anemia, unspecified Is this a current diagnosis for this admission?: Yes (4) Anxiety Is this a current diagnosis for this admission?: Yes - Time Spent with Patient Time with patient: Less than 15 minutes Medications reviewed and adjusted accordingly: Yes - Disposition Anticipated Discharge: Home Within: within 24 hours
--- NOTE | 2018-05-05 11:13 | PDOC DISCHARGE SUMMARY ---
Final Diagnosis Discharge Date: 05/05/18 - Final Diagnosis (1) Vaginal delivery Is this a current diagnosis for this admission?: Yes (2) Chronic hypertension with superimposed preeclampsia Is this a current diagnosis for this admission?: Yes (3) Anemia Is this a current diagnosis for this admission?: Yes (4) Anxiety Is this a current diagnosis for this admission?: Yes Discharge Data - Discharge Medication Home Medications: Doxylamine Succinate/Vit B6 [Diclegis Dr 10-10 mg Tablet] 2 tab PO BID 07/20/16 Vitamin [-U Multiple Vitamin Capsule] 1 cap PO DAILY #0 capsule 11/07/16 Buspirone HCl [Buspar 5 mg Tablet] 1.5 tab PO BID 03/02/18 Labetalol HCl [Normodyne 200 mg Tablet] 100 mg PO BID 03/02/18 Iron,Carb/Vit C/Vit B12/Folic [Iron 100 Plus Tablet] 1 each PO Q2DAYS 04/12/18 Reason(s) for Admission: Induction of Labor, Obstetric Complications Procedures: NST, Management of Obstetric Complications Intrapartum Procedure(s): Spontaneous Vaginal Delivery - Diagnosis Test Laboratory: Temp Pulse Resp BP Pulse Ox 98.1 F 96 20 159/93 H 97 05/05/18 08:12 05/05/18 08:12 05/05/18 08:12 05/05/18 08:12 05/05/18 08:12 05/02/18 05/02/18 05/03/18 19:55 20:25 07:58 RBC 3.46 L 3.58 L Hgb 8.8 L 9.1 L Hct 26.9 L 28.2 L Urine Opiates Screen NEGATIVE 05/04/18 07:03 RBC 3.37 L Hgb 8.5 L Hct 26.3 L Urine Opiates Screen - Discharge information/Instructions Discharge Activity: Balance Activity w/Rest, Pelvic Rest Discharge Diet: Regular Disposition: HOME, SELF-CARE Follow up with: [facility] in: 5, Days
[2018-05-05 11:23] LABS: HEMATOCRIT 24.1 % (36.0-47.0); MEAN CORPUSCULAR HEMOGLOBIN 25.9 pg (27.0-33.4); MEAN CORPUSCULAR HGB CONC 32.8 g/dL (32.0-36.0); MEAN CORPUSCULAR VOLUME 79 fl (80-97); PLATELET COUNT 302 10^3/uL (150-450); RED BLOOD COUNT 3.06 10^6/uL (3.72-5.28); RED CELL DISTRIBUTION WIDTH 17.3 % (11.5-14.0); WHITE BLOOD COUNT 9.3 10^3/uL (4.0-10.5)
[2018-05-05 11:28] LABS: ALANINE AMINOTRANSFERASE 54 U/L (9-52); ALBUMIN 2.7 g/dL (3.5-5.0); ALKALINE PHOSPHATASE 96 U/L (38-126); ANION GAP 8 (5-19); ASPARTATE AMINO TRANSFERASE 41 U/L (14-36); BILIRUBIN,DIRECT 0.2 mg/dL (0.0-0.4); BILIRUBIN,TOTAL 0.4 mg/dL (0.2-1.3); BLOOD UREA NITROGEN 9 mg/dL (7-20); CALCIUM 8.9 mg/dL (8.4-10.2); CARBON DIOXIDE 25 mmol/L (22-30); CHLORIDE 109 mmol/L (98-107); GLUCOSE 95 mg/dL (75-110); POTASSIUM 3.7 mmol/L (3.6-5.0); SODIUM 141.6 mmol/L (137-145); TOTAL PROTEIN 5.4 g/dL (6.3-8.2)
[2018-05-05 11:29] LABS: HEMOGLOBIN 7.9 g/dL (12.0-15.5)
[2018-05-05] MEDS: NIFEDIPINE 30 MG TAB.ER.24 PO SCH (13:20)
[2018-05-05] MEDS: ZOLPIDEM TARTRATE 5 MG TABLET PO SCH (21:29)
[2018-05-06] MEDS: IBUPROFEN 800 MG TABLET PO SCH ×3 (05:38→21:54)
[2018-05-06] MEDS: LABETALOL HCL 200 MG TABLET PO SCH ×3 (05:38→21:54)
[2018-05-06] MEDS: BUSPIRONE HCL 10 MG TABLET PO SCH ×2 (09:34→18:23)
[2018-05-06] MEDS: FAMOTIDINE 20 MG TABLET PO SCH ×2 (09:34→21:54)
[2018-05-06] MEDS: PRENATAL VITAMIN W DHA CAPSULE PO SCH (09:34)
[2018-05-06] MEDS: DOCUSATE SODIUM 100 MG CAPSULE PO SCH ×2 (09:34→18:23)
[2018-05-06] MEDS: FERROUS SULFATE 325 MG TABLET PO SCH ×2 (09:34→18:23)
[2018-05-06] MEDS: SENNOSIDES/DOCUSATE 8.6-50 MG 1 EACH TABLET PO SCH (09:34)
[2018-05-06] MEDS: NIFEDIPINE 30 MG TAB.ER.24 PO SCH (10:51)
--- NOTE | 2018-05-06 11:12 | PDOC PROGRESS REPORT ---
Subjective-OB Progress Note for:: 05/06/18 Subjective: Doing well, ready to go home, feeling better, voiding, eating well, bottle feeding Physical Exam (OB) Vital Signs: Temp Pulse Resp BP Pulse Ox 97.5 F 85 15 131/78 H 99 05/06/18 08:00 05/06/18 07:43 05/06/18 07:43 05/06/18 07:43 05/06/18 07:43 Intake & Output 05/05/18 05/06/18 05/07/18 06:59 06:59 06:59 Intake Total 128 Balance 128 - PIH/Pre-Eclampsia DTR's: 2 + Clonus: Negative Headache: Present Epigastric Pain: No Visual Changes: Yes - Lochia Lochia Amount: Small 10-25 ml Lochia Color: Rubra/Red - Abdomen Description: Tender, Soft, Round Hernia Present: No Fundal Description: Firm Fundal Height: u/3 - u/4 Objective-Diagnostic Laboratory: 05/05/18 10:53 05/05/18 10:53 05/05/18 05/05/18 10:53 10:53 WBC 9.3 RBC 3.06 L Hgb 7.9 L Hct 24.1 L MCV 79 L MCH 25.9 L MCHC 32.8 RDW 17.3 H Plt Count 302 Sodium 141.6 Potassium 3.7 Chloride 109 H Carbon Dioxide 25 Anion Gap 8 BUN 9 Creatinine 0.71 Est GFR ( Amer) > 60 Est GFR (Non-Af Amer) > 60 Glucose 95 Calcium 8.9 Total Bilirubin 0.4 AST 41 H ALT 54 H Alkaline Phosphatase 96 Total Protein 5.4 L Albumin 2.7 L Assessment and Plan(PN) - Assessment and Plan (1) Vaginal delivery Is this a current diagnosis for this admission?: Yes (2) Chronic hypertension with superimposed preeclampsia Is this a current diagnosis for this admission?: Yes (3) Anxiety Is this a current diagnosis for this admission?: Yes (4) Anemia Qualifiers: Anemia type: iron deficiency Is this a current diagnosis for this admission?: Yes - Time Spent with Patient Time with patient: Less than 15 minutes Medications reviewed and adjusted accordingly: Yes - Disposition Anticipated Discharge: Home Within: Other - home today, reviewed S&S to report
--- NOTE | 2018-05-06 11:15 | PDOC DISCHARGE SUMMARY ---
Final Diagnosis Discharge Date: 05/06/18 - Final Diagnosis (1) Vaginal delivery Is this a current diagnosis for this admission?: Yes (2) Chronic hypertension with superimposed preeclampsia Is this a current diagnosis for this admission?: Yes Discharge Data - Discharge Medication Prescriptions: Ibuprofen [Motrin 800 mg Tablet] 800 mg PO Q8 #60 tablet Labetalol HCl [Normodyne 200 mg Tablet] 200 mg PO Q8 #90 tablet Home Medications: Vitamin [-U Multiple Vitamin Capsule] 1 cap PO DAILY #0 capsule 11/07/16 Buspirone HCl [Buspar 5 mg Tablet] 1.5 tab PO BID 03/02/18 Iron,Carb/Vit C/Vit B12/Folic [Iron 100 Plus Tablet] 1 each PO Q2DAYS 04/12/18 Ibuprofen [Motrin 800 mg Tablet] 800 mg PO Q8 #60 tablet 05/05/18 Labetalol HCl [Normodyne 200 mg Tablet] 200 mg PO Q8 #90 tablet 05/05/18 Gestational Age: 37.3 Reason(s) for Admission: Induction of Labor, PIH - Pre-eclampsia Procedures: NST, Ultrasound Intrapartum Procedure(s): Spontaneous Vaginal Delivery - [place] Data Baby 1 Male at 1 minute: 8 at 5 minutes: 8 Weight: 3.941 kg Home with Mother: Yes Complications: No - Diagnosis Test Laboratory: Temp Pulse Resp BP Pulse Ox 97.5 F 85 15 131/78 H 99 05/06/18 08:00 05/06/18 07:43 05/06/18 07:43 05/06/18 07:43 05/06/18 07:43 05/02/18 05/02/18 05/03/18 19:55 20:25 07:58 RBC 3.46 L 3.58 L Hgb 8.8 L 9.1 L Hct 26.9 L 28.2 L Urine Opiates Screen NEGATIVE 05/04/18 05/05/18 07:03 10:53 RBC 3.37 L 3.06 L Hgb 8.5 L 7.9 L Hct 26.3 L 24.1 L Urine Opiates Screen - Discharge information/Instructions Discharge Activity: Balance Activity w/Rest, No Lifting Over 10 Pounds, No Lifting/Push/Pulling, Pelvic Rest Discharge Diet: As Tolerated, Regular Disposition: HOME, SELF-CARE Follow up with: [facility] in: - Thursday or Thursday, 5, Days
[2018-05-06] MEDS: ZOLPIDEM TARTRATE 5 MG TABLET PO SCH ×2 (21:54→23:55)
[2018-05-07] MEDS: IBUPROFEN 800 MG TABLET PO SCH (05:14)
[2018-05-07] MEDS: FAMOTIDINE 20 MG TABLET PO SCH (10:04)
[2018-05-07] MEDS: LABETALOL HCL 200 MG TABLET PO SCH (10:04)
[2018-05-07] MEDS: PRENATAL VITAMIN W DHA CAPSULE PO SCH (10:04)
[2018-05-07] MEDS: SENNOSIDES/DOCUSATE 8.6-50 MG 1 EACH TABLET PO SCH (10:04)
[2018-05-07] MEDS: BUSPIRONE HCL 10 MG TABLET PO SCH (10:05)
[2018-05-07] MEDS: FERROUS SULFATE 325 MG TABLET PO SCH (10:05)
[2018-05-07] MEDS: DOCUSATE SODIUM 100 MG CAPSULE PO SCH (10:06)
--- NOTE | 2018-05-07 10:47 | PDOC PROGRESS REPORT ---
Subjective-OB Progress Note for:: 05/07/18 Subjective: Post Day #4, s/p Magnessium Sulfated and IOL for Pre-eclampsia. Pt doing well today, denies headache, blurred vision or epigastric pain.bottle feeding. Baby remains under the ge[place]-lights Physical Exam (OB) Vital Signs: Temp Pulse Resp BP Pulse Ox 97.7 F 95 18 158/91 H 97 05/07/18 08:14 05/07/18 08:14 05/07/18 08:14 05/07/18 08:14 05/07/18 08:14 Intake & Output 05/06/18 05/07/18 05/08/18 06:59 06:59 06:59 Baby 1 Male 3.941 kg - General General Appearance: Appears well In distress: None - PIH/Pre-Eclampsia DTR's: 2 + Clonus: Negative Headache: Absent Epigastric Pain: No Visual Changes: No - Lochia Lochia Amount: Scant < 10 ml Lochia Color: Rubra/Red - Abdomen Description: Soft, Round Hernia Present: No Fundal Description: Firm Fundal Height: u/u - u/2 - Respiratory Respiratory Status: No respiratory distress - Extremities Lower extremities: Edema - 1+ - Neurological Cognition: Normal Orientation: AAOx4 Sensory: Normal - Psychological Associated symptoms: Normal affect, Normal mood Objective-Diagnostic Laboratory: 05/05/18 10:53 05/05/18 10:53 Assessment and Plan(PN) - Assessment and Plan (1) Chronic hypertension with superimposed preeclampsia Is this a current diagnosis for this admission?: Yes (2) Vaginal delivery Is this a current diagnosis for this admission?: Yes (3) Anemia Qualifiers: Anemia type: iron deficiency Is this a current diagnosis for this admission?: Yes (4) Anxiety Is this a current diagnosis for this admission?: Yes - Time Spent with Patient Time with patient: Less than 15 minutes - patient may board over night if baby has to stay longer Medications reviewed and adjusted accordingly: Yes - Disposition Anticipated Discharge: Home
--- NOTE | 2018-05-07 12:03 | PDOC DISCHARGE SUMMARY ---
Final Diagnosis Discharge Date: 05/07/18 - Final Diagnosis (1) Chronic hypertension with superimposed preeclampsia Is this a current diagnosis for this admission?: Yes (2) Vaginal delivery Is this a current diagnosis for this admission?: Yes (3) Anemia Is this a current diagnosis for this admission?: Yes (4) Anxiety Is this a current diagnosis for this admission?: Yes Discharge Data - Discharge Medication Prescriptions: Acetaminophen with Codeine [Tylenol #3 Tablet] 1 each PO Q4HP PRN #20 tablet PRN Reason: Pain Scale Of 3 Ferrous Sulfate [Feosol 325 mg Tablet] 325 mg PO BID #60 tablet Ibuprofen [Motrin 800 mg Tablet] 800 mg PO Q8 #60 tablet Labetalol HCl [Normodyne 200 mg Tablet] 200 mg PO Q8 #90 tablet Nifedipine [Procardia XL 30 mg Tablet] 30 mg PO DAILY #30 tab.er.24 Home Medications: Vitamin [-U Multiple Vitamin Capsule] 1 cap PO DAILY #0 capsule 11/07/16 Buspirone HCl [Buspar 5 mg Tablet] 1.5 tab PO BID 03/02/18 Iron,Carb/Vit C/Vit B12/Folic [Iron 100 Plus Tablet] 1 each PO Q2DAYS 04/12/18 Ibuprofen [Motrin 800 mg Tablet] 800 mg PO Q8 #60 tablet 05/05/18 Labetalol HCl [Normodyne 200 mg Tablet] 200 mg PO Q8 #90 tablet 05/05/18 Acetaminophen with Codeine [Tylenol #3 Tablet] 1 each PO Q4HP PRN #20 tablet Ferrous Sulfate [Feosol 325 mg Tablet] 325 mg PO BID #60 tablet 05/07/18 Nifedipine [Procardia XL 30 mg Tablet] 30 mg PO DAILY #30 tab.er.24 05/07/18 Reason(s) for Admission: Induction of Labor - due to Pre-eclampsia Procedures: NST, Ultrasound Intrapartum Procedure(s): Spontaneous Vaginal Delivery - Diagnosis Test Laboratory: Temp Pulse Resp BP Pulse Ox 97.7 F 95 18 158/91 H 97 05/07/18 08:14 05/07/18 08:14 05/07/18 08:14 05/07/18 08:14 05/07/18 08:14 05/02/18 05/02/18 05/03/18 19:55 20:25 07:58 RBC 3.46 L 3.58 L Hgb 8.8 L 9.1 L Hct 26.9 L 28.2 L Urine Opiates Screen NEGATIVE 05/04/18 05/05/18 07:03 10:53 RBC 3.37 L 3.06 L Hgb 8.5 L 7.9 L Hct 26.3 L 24.1 L Urine Opiates Screen - Discharge information/Instructions Discharge Activity: Balance Activity w/Rest, No Lifting Over 10 Pounds, No Lifting/Push/Pulling, Pelvic Rest Discharge Diet: As Tolerated Disposition: HOME, SELF-CARE Follow up with: [facility] in: - Thursday or Thursday, 5, Days
[2018-05-07] MEDS: NIFEDIPINE 30 MG TAB.ER.24 PO SCH (12:07)
[2018-05-07 14:41] VITALS: BP 154/92
== END 2018-05-07 15:19 | disposition home or self-care (01) | DRG 775 ==
LOC: LR 19:49 → 2S 05-04 10:40
PROVIDERS: ADMIT Student in an Organized Health Care Education/Training Program; ATTEND Student in an Organized Health Care Education/Training Program
PROC: 10E0XZZ Delivery of Products of Conception, External Approach (ICD-10-PCS; principal; 2018-05-03)
DX: O13.4 Gestational [pregnancy-induced] hypertension without significant proteinuria, complicating childbirth (principal); O99.344 Other mental disorders complicating childbirth; O14.94 Unspecified pre-eclampsia, complicating childbirth; O69.81X0 Labor and delivery complicated by cord around neck, without compression, not applicable or unspecified; O99.02 Anemia complicating childbirth; D64.9 Anemia, unspecified; F41.9 Anxiety disorder, unspecified; Z3A.37 37 weeks gestation of pregnancy; Z37.0 Single live birth
CPT/HCPCS: 36415; 80053; 80307; 81001; 82570; 83615; 84156; 84550; 85025; 85027; 86592; 86850; 86900; 86901; J0360; J2300; J2590; J3010; J3475; J3490; S0119